=== PATIENT | male | born 1960 ===

== ENCOUNTER 2016-05-17 10:44 | Day surgery (SDC) | payer MEDICAID ==
[2016-04-22 13:35] VITALS: BMI 27.8
[2016-05-17] MEDS ORDERED: Propofol 10 mg/ml Inj (20 ML) ONE (11:49)
[2016-05-17] MEDS ORDERED: Midazolam 2 MG/2 ML VIAL ONE (11:49)
[2016-05-17] MEDS ORDERED: Succinylcholine 200 mg/10 ml Inj IV ONE (11:51)
[2016-05-17] MEDS ORDERED: Lactated Ringer's 1,000 ML IV ONE (12:00)
[2016-05-17] MEDS ORDERED: ePHEDrine 50 mg/ml Inj ONE (12:39)
--- NOTE | 2016-05-17 12:46 | CP.SDSHP ---
Same Day Surgery H & P - History Proposed Procedure: Open right inguinal hernia repair Pre-Op Diagnosis: Right inguinal hernia - Previous Medical/Surgical History Cardiac: Hypertension Pulmonary: Asthma Endocrine/Metabolic: Diabetes (prediabetes) Misc: Other (back pain, arthritis) Previous Surgical History: hemorrhoidectomy - Allergies Allergies: Allergies No Known Allergies Allergy (Verified 01/30/16 15:13) - Physical Exam Vital Signs: Vital Signs 05/17/16 05/17/16 11:04 11:10 Temperature 97.9 F Pulse Rate 58 L 88 Respiratory 18 Rate Blood Pressure 112/59 L O2 Sat by Pulse 96 Oximetry Mental Status: Alert & Oriented x3 Neuro: WNL Heart: WNL Lungs: WNL GI: WNL - {Optional Preform as Required} Abdomen: WNL - Impression Impression: Initial Right inguinal hernia Pt. Evaluated Today:Candidate for Anesthesia & Procedure: Yes - Date & Time Date: 05/17/16 Time: 12:45 Short Stay Discharge - Short Stay Discharge Admitting Diagnosis/Reason for Visit: RT INGUINAL HERNIA Referrals: Ishmael Alex MD [Primary Care Provider] - Elio Mendieta MD [Staff Provider] - Follow-up: Follow up with Dr. Mendieta in the clinic in 1 week Instructions: Inguinal Hernia (DC), Open Herniorrhaphy (DC) Additional Instructions (Diet, Activity): Avoid heavy lifting for 4 weeks You may remove top dressings 48 hours after your surgery but leave white steri strips in place, they will fall off on their own You may shower 48 hours after surgery, do not take a bath or swim You may resume regular diet You may take prescribed pain medication as needed for pain Follow up with Dr. Mendieta in the clinic in 1 week, call to make appointment
[2016-05-17] MEDS ORDERED: Sevoflurane - Inhalation Anesthetic Liq (250 ml) ONE (13:54)
--- NOTE | 2016-05-17 14:17 | PCM.SURG1 ---
Surgeon's Initial Post Op Note - Surgeon's Notes Surgeon: Dr. Mendieta Pilot Boat Deckhand: Dr. Silva PGY-2, Dr. Jones PGY-1, Dr. Mena DPM Type of Anesthesia: General Endo Pre-Operative Diagnosis: Right inguinal hernia Operative Findings: Right direct inguinal hernia Post-Operative Diagnosis: Right inguinal hernia Operation Performed: Open Right inguinal hernia repair with mesh Specimen/Specimens Removed: none Estimated Blood Loss: EBL {In ML}: 10 Blood Products Given: N/A Drains Used: No Drains Post-Op Condition: Good Date of Surgery/Procedure: 05/17/16 Time of Surgery/Procedure: 14:17
[2016-05-17] MEDS ORDERED: Albuterol 0.083% Inhal Sol (2.5 mg/3 mL) UD INH ONE (14:19)
[2016-05-17] MEDS ORDERED: DiphenhydrAMINE 50 mg/ml Inj IVP PRN (14:19)
[2016-05-17] MEDS ORDERED: HYDROmorphone 0.5 mg/0.5 ml ISec IVP PRN (14:22)
[2016-05-17] MEDS ORDERED: Oxycodone/Acetaminophen 5/325 mg Tab PO PRN (14:23)
[2016-05-17] MEDS: HYDROmorphone 0.5 mg/0.5 ml ISec IVP PRN ×4 (14:45→15:15)
[2016-05-17] MEDS ORDERED: HYDROmorphone 0.5 mg/0.5 ml ISec ONE (15:21)
[2016-05-17] MEDS ORDERED: HYDROmorphone 0.5 mg/0.5 ml ISec IVP ONE (15:30)
[2016-05-17] MEDS ORDERED: Oxycodone/Acetaminophen 5/325 mg Tab PO ONE ×2 (16:15)
[2016-05-17 16:21] VITALS: RESP 18; O2SAT 96
[2016-05-17 17:40] VITALS: BP 109/60; PULSE 72; TEMP 98
--- NOTE | 2016-05-18 14:31 | OP ---
PROCEDURE DATE: 05/17/2016 SURGEON: Dr. Mendieta. TIRE SHOP MANAGER: Dr. Silva and Dr. Jones. ANESTHESIA: General, DrMaryanne ____ . PREOPERATIVE DIAGNOSIS: Right inguinal hernia. POSTOPERATIVE DIAGNOSIS: Direct right inguinal hernia. PROCEDURE: Right inguinal hernia repair with mesh. DESCRIPTION OF OPERATION: With the patient in the supine position under adequate general anesthesia, the right groin was prepped and draped in the usual sterile manner. A transverse incision was made in the right upper groin crease and taken down through the subcutaneous tissue and the external obliq ue fascia was exposed. The external oblique fascia was incised and opened parallel to its fibers fro m the internal inguinal ring to the external inguinal ring. The spermatic cord was identified and di ssected at the level of the pubic tubercle and elevated on a [place] drain. The spermatic cord itsel f was relatively narrow; however, a large fatty protrusion was noted beneath the spermatic cord herni ating through the inguinal floor. The shelving edge of the inguinal ligament and the transversalis f ascia were developed with a minimal release of the oblique and a suture was placed at the pubic tuber amarjit. A size extra large ProLoop plug was then placed into the defect after the herniated material duckworth d been completely freed up and reduced and imbricating sutures of 2-0 Prolene were used to position t he plug well beneath the transversalis fascia and beneath the inguinal ligament as well. The flat po rtion of the ProLoop mesh system was then trimmed to approximate the inguinal floor and positioned be neath the spermatic cord and sutured superiorly to the transversalis fascia superiorly and the inguin al ligament inferiorly using the previously placed sutures as well as additional 2-0 Prolene interrup tonia sutures with sutures being placed to approximate the tails lateral to the internal ring. The ext ernal oblique was then closed with running suture of 0 Vicryl. Subcutaneous tissues approximated wit h 3-0 Vicryl interrupted sutures and closure performed with running subcuticular suture of 4-0 Monocr yl and Steri-Strips. Dry sterile dressing was applied. The patient tolerated the procedure well and transferred to recovery room in stable condition. Estimated blood loss for the procedure was 10 mL. Elio Mendieta MD cc: [id number] TT: 05/18/2016 14:30:19 jn
== END 2016-05-17 17:40 | disposition home or self-care (01) ==
LOC: H.OPSURG 10:44
PROVIDERS: ATTEND Specialist
DX: K40.90 Unilateral inguinal hernia, without obstruction or gangrene, not specified as recurrent (principal); I10 Essential (primary) hypertension; J45.909 Unspecified asthma, uncomplicated; E11.9 Type 2 diabetes mellitus without complications

== ENCOUNTER 2016-05-30 10:19 | Day surgery (SDC) | payer MEDICAID ==
[2016-05-30] MEDS ORDERED: Bupivacaine HCl 0.25% PF (10 ml) Inj ONE (11:15)
[2016-05-30] MEDS ORDERED: methylPREDNISolone Depo 80 mg/ml Inj ONE (11:15)
[2016-05-30] MEDS ORDERED: Lidocaine 1% Inj (20ml) ONE (11:15)
[2016-05-30] MEDS ORDERED: Iohexol 300 100 ML IJ ONE (11:15)
[2016-05-30 11:16] VITALS: BMI 27.1
[2016-05-30] MEDS ORDERED: Iohexol 300 10 ML ONE (11:17)
[2016-05-30] MEDS ORDERED: Sodium Chloride 0.9% 100 ML IV ONE (11:37)
[2016-05-30] MEDS ORDERED: Sodium Chloride 0.9% 200 ML IV ONE (11:37)
[2016-05-30] MEDS ORDERED: Lactated Ringer's 1,000 ML IV ONE (11:37)
--- NOTE | 2016-05-30 14:07 | OP ---
PROCEDURE DATE: 05/30/2016 PREOPERATIVE DIAGNOSIS: Cervical facet arthropathy. POSTOPERATIVE DIAGNOSIS: Cervical facet arthropathy. PROCEDURE: Bilateral C3, C4, and C5 medial branch nerve block. ANESTHESIOLOGIST: Dr. Miles. SURGEON: Dr. Seay. ANESTHESIA TYPE: Monitored anesthesia care. COMPLICATIONS: None. SPECIMEN: None. PROCEDURE: After re-discussion of the procedure with the patient including its risks, benefits, alte rnatives, outcome data, possibility of no effect or increased pain, the patient consented to the proc edure. He denies any recent infections, bleeding tendencies, or being on anticoagulants. Decision w as then made to proceed to the OR. The patient was placed on the fluoroscopy table in a prone position with 2 pillows underneath his abd omen. The chest and head were placed in a cervical positioner. The neck was prepped and draped in a usual sterile fashion and sterile technique was adhered to during the entire procedure. The C3, C4, and C5 vertebral levels were first identified in the anterior-posterior view. The medial branch ner ves are located at the lateral border of the corresponding vertebral levels. The procedure was first performed on the right side. The skin overlying the midpoint position of the lateral facet border o f the 3 corresponding vertebral levels was first infiltrated with 1% lidocaine using a 25 gauge needl e. Subsequently, a 22 gauge 3-1/2 inch spinal needle was then incrementally advanced under fluorosco pic guidance until tip of the needle made bony contact with all 3 target areas. The needle was then walked slightly laterally and anteriorly. After satisfactory positioning of all 3 needles, approxima tely 0.5 mL of Isovue contrast was injected to rule out intravenous spread. After doing so, approxim ately 2 mL of 0.25% Marcaine and Depo-Medrol mixture was injected into each needle. The needle was r emoved and the same exact procedure was performed on the contralateral left side using the same medic ations and technique at the corresponding levels. At the end of the case, the patient's neck was amarjit aned and dried and Band-Aids were applied. The patient was then transferred to the recovery area in good condition without any signs of [place]MIST STERO[place] or any neurological deficits. He will have a followup in office in approximately 2-4 weeks. En-Alexander Seay MD cc: [id number] TT: 05/30/2016 14:06:29 mn
[2016-05-30 16:15] VITALS: RESP 18
[2016-05-30 16:18] VITALS: O2SAT 97
[2016-05-30 16:45] VITALS: BP 120/71; PULSE 79; TEMP 99
--- NOTE | 2016-06-01 15:45 | RAD ---
Fluoroscopy dated 11/21/2016. History: Epidural. Single frontal view of the cervical spine performed. Study demonstrates 3 spinal needles at contiguous levels, side of which is uncertain due to the lack of right left markers. The there is contrast extravasation along the lateral margins overlying lateral margins of the upper cervical segments bilaterally. Approximately 36 seconds of fluoroscopy time utilized during this procedure. Please refer to operative report for additional details. Impression: Fluoroscopic guided pain management procedure.
== END 2016-05-30 17:30 | disposition home or self-care (01) ==
LOC: H.OPSURG 10:19
PROVIDERS: ATTEND Anesthesiology
DX: M46.82 Other specified inflammatory spondylopathies, cervical region (principal)

== ENCOUNTER 2016-07-16 10:33 | Emergency (ER) | payer MEDICAID ==
[2016-07-16 10:33] VITALS: BMI 27.1
[2016-07-16 10:48] VITALS: BP 139/92; PULSE 71; RESP 20; TEMP 97; O2SAT 97
--- NOTE | 2016-07-16 12:03 | ED PDOC ---
HPI: Abdomen Time Seen by Provider: 07/16/16 11:29 Chief Complaint (Nursing): Abdominal Pain Chief Complaint (Provider): Abdominal Pain History Per: Patient Additional Complaint(s): Jose Thao is a 56 year old male, with a previous medical history of diverticulitis, inguinal hernia, asthma and hypertension, who presents to the ED for eval of abnormal labs. Pt c/o mild abdominal cramping, LUQ to epigastric x 2-3 days. No fever or chills, no nausea, vomiting or diarrhea. Past Medical History Reviewed: Nursing Documentation, Vital Signs Vital Signs: Last Vital Signs Temp 97 F L 07/16/16 10:44 Pulse 71 07/16/16 10:44 Resp 20 07/16/16 10:44 BP 139/92 H 07/16/16 10:44 Pulse Ox 97 07/16/16 14:10 - Medical History PMH: Anxiety, Arthritis (osteoarthritis), Asthma, Back Problems, Benign Prostatic Hyperplasia, COPD, Diverticulitis, Hiatal Hernia, HTN, Hypercholesterolemia, Chronic Pain (Chronic back pain due to spinal stenosis) Denies: CHF, HIV, Chronic Kidney Disease - Surgical History Surgical History: - Family History Family History: States: [place], CAD, Diabetes, Hypertension - Social History Current smoker - smoking cessation education provided: No Alcohol: None Drugs: Denies - Home Medications Home Medications: Ambulatory Orders Medication Instructions Recorded Hydrochlorothiazide [HCTZ] 25 mg PO DAILY 03/15/15 Metoprolol Tartrate 25 mg PO BID 03/15/15 Morphine [MS Contin] 30 mg PO TID 03/15/15 Fluticasone/Salmeterol 500/50 1 actuation INH BID 09/10/15 [Advair Diskus 500/50] Lisinopril [Zestril] 40 mg PO DAILY 11/09/15 Acetaminophen/Oxycodone Hydr 10 - 325 mg PO Q6 PRN 12/21/15 [Percocet 10/325 mg Tab] Gabapentin [Neurontin] 800 mg PO TID 05/17/16 Dicyclomine [Bentyl] 10 mg PO QID #10 cap 07/16/16 - Allergies Allergies/Adverse Reactions: Allergies Allergy/AdvReac Type Severity Reaction Status Date / Time No Known Allergies Allergy Verified 07/16/16 10:44 Review of Systems ROS Statement: Except As Marked, All Systems Reviewed And Found Negative Gastrointestinal: Positive for: Abdominal Pain Physical Exam - Reviewed Nursing Documentation Reviewed: Yes Vital Signs Reviewed: Yes - Physical Exam Appears: Positive for: Well, Non-toxic, No Acute Distress Head Exam: Positive for: ATRAUMATIC, NORMAL INSPECTION, NORMOCEPHALIC Skin: Positive for: Normal Color, Warm, DRY Eye Exam: Positive for: EOMI, Normal appearance, PERRL ENT: Positive for: Normal ENT Inspection Neck: Positive for: Normal, Painless ROM Cardiovascular/Chest: Positive for: Regular Rate, Rhythm Respiratory: Positive for: CNT, Normal Breath Sounds Gastrointestinal/Abdominal: Positive for: Normal Exam, Bowel Sounds, Soft. Negative for: Tenderness, Mass, Distended, Guarding Back: Positive for: Normal Inspection Extremity: Positive for: Normal ROM Neurologic/Psych: Positive for: Alert, Oriented - Laboratory Results Result Diagrams: 07/16/16 12:55 07/16/16 12:55 - ECG O2 Sat by Pulse Oximetry: 97 Medical Decision Making Medical Decision Making: IV access established and treatment initiated with Toradol and Zofran Labs resulted and reviewed with POt who demonstrated full understanding XR IMPRESSION: No active disease. No acute/significant interval changes. US IMPRESSION: 1.9 cm right lower pole renal cyst. Echogenic liver may be seen in setting of hepatic parenchymal disease or fatty infiltration. Pt without any complaints on re-eval. Abdomen remains soft, non tender and non distended Advised to return to ED if at anytime condition worsens. Disposition - Clinical Impression Clinical Impression: Abdominal discomfort - Patient ED Disposition Is Patient to be Admitted: No - Disposition Disposition: Routine/Home Disposition Time: 15:19 Condition: STABLE Prescriptions: Dicyclomine [Bentyl] 10 mg PO QID #10 cap Instructions: Abdominal Pain (ED) - POA Present On Arrival: None
[2016-07-16 12:19] LABS: RBC URINE < 1 /hpf (0-3); URINE BILIRUBIN NEGATIVE (NEGATIVE); URINE BLOOD NEGATIVE (NEGATIVE); URINE COLOR STRAW (YELLOW); URINE GLUCOSE (UA) NEG (Normal); URINE KETONE NEGATIVE (NEGATIVE); URINE LEUKOCYTE ESTERASE NEG Leu/uL (Negative); URINE PROTEIN NEGATIVE (NEGATIVE); URINE UROBILINOGEN 0.2-1.0 mg/dL (0.2-1.0)
[2016-07-16 13:16] LABS: BASO % 0.5 % (0.0-2.0); EOS # 0.1 K/uL (0.0-0.7); EOS % 1.7 % (0.0-4.0); HEMATOCRIT 44.6 % (35.0-51.0); MEAN CELL VOLUME 81.1 fl (80.0-94.0); MEAN CORPUSCULAR HEMOGLOBIN 27.3 pg (27.0-31.0); MEAN CORPUSCULAR HGB CONC 33.6 g/dL (33.0-37.0); MEAN PLATELET VOLUME 11.1 fl (7.2-11.7); MONO # 0.5 K/uL (0.0-0.8); MONO % 6.9 % (0.0-10.0); NEUT # 5.7 K/uL (1.8-7.0); NEUT % 77.9 % (50.0-75.0); RED CELL DISTRIBUTION WIDTH 13.8 % (11.5-14.5); WHITE BLOOD COUNT 7.4 K/uL (4.8-10.8)
--- NOTE | 2016-07-16 13:21 | US ---
HISTORY: ruq and epigastric pain COMPARISON: CT abdomen and pelvis with contrast performed 04/22/16 TECHNIQUE: Sonographic evaluation of the abdomen. FINDINGS: LIVER: Measures 15.3 cm in sagittal dimension. Echogenic liver may be seen in setting of hepatic parenchymal disease or fatty infiltration. No focal hepatic mass identified. The main portal vein appears patent with normal directional flow. No intrahepatic bile duct dilatation. GALLBLADDER: No gallstones. No gallbladder wall thickening. Negative sonographic Sosa's sign as assessed by the fence erector. COMMON BILE DUCT: Measures 3 mm. PANCREAS: Not well visualized. RIGHT KIDNEY: Measures 11.7 x 7.0 x 6.1 cm. No obstructing calculus or hydronephrosis identified. 1.2 x 1.9 x 0.9 cm right lower pole avascular hypoechoic lesion consistent with a cyst. LEFT KIDNEY: Measures 11.5 x 6.5 x 6.0 cm. No obstructing calculus or hydronephrosis identified. SPLEEN: Measures approximately 10.4 cm. AORTA: Not well-visualized. IVC: Limited views appear grossly unremarkable. OTHER FINDINGS: None. IMPRESSION: 1.9 cm right lower pole renal cyst. Echogenic liver may be seen in setting of hepatic parenchymal disease or fatty infiltration.
[2016-07-16 13:26] LABS: ALB/GLOB RATIO 1.9 (1.0-2.1); ALKALINE PHOSPHATASE 60 U/L (38-126); ALT/SGPT 48 U/L (21-72); AMYLASE 113 U/L (30-110); AST/SGOT 37 U/L (17-59); BILIRUBIN,TOTAL 1.4 mg/dl (0.2-1.3); BLOOD UREA NITROGEN 15 mg/dl (9-20); CALCIUM 9.7 mg/dL (8.4-10.2); CARBON DIOXIDE 30 mmol/L (22-30); CHLORIDE 94 mmol/L (98-107); GFR AFRICAN-AMERICAN > 60; GLUCOSE,RANDOM 111 mg/dL (75-110); LIPASE 168 U/L (23-300); POTASSIUM 4.4 MMOL/L (3.6-5.0); SODIUM 136 mmol/l (132-148); TOTAL PROTEIN 7.8 G/DL (6.3-8.2)
--- NOTE | 2016-07-16 14:55 | RAD ---
PROCEDURE: CHEST RADIOGRAPH, 1 VIEW HISTORY: Abdominal pain. COMPARISON: July 16, 2016. Abdominal ultrasound FINDINGS: LUNGS: No active pulmonary disease. PLEURA: No pneumothorax or pleural fluid seen. CARDIOVASCULAR: No radiographic findings to suggest acute or significant cardiovascular disease. OSSEOUS STRUCTURES: No significant abnormalities. VISUALIZED UPPER ABDOMEN: Normal. OTHER FINDINGS: None. IMPRESSION: No active disease. No acute/significant interval changes.
== END 2016-07-16 14:17 | disposition home or self-care (01) ==
LOC: H.ER 10:33
DX: N28.1 Cyst of kidney, acquired (principal); K40.90 Unilateral inguinal hernia, without obstruction or gangrene, not specified as recurrent; E78.00 Pure hypercholesterolemia, unspecified; F41.9 Anxiety disorder, unspecified; I10 Essential (primary) hypertension; J44.9 Chronic obstructive pulmonary disease, unspecified; R10.13 Epigastric pain

== ENCOUNTER 2016-11-22 07:44 | Day surgery (SDC) | payer MEDICAID ==
[2016-10-05 12:21] VITALS: BMI 28.5
[2016-11-22] MEDS ORDERED: Lactated Ringer's 500 ML IV ONE (08:01)
[2016-11-22 08:09] VITALS: TEMP 97
[2016-11-22 10:17] VITALS: BP 114/70; PULSE 70; RESP 11; O2SAT 97
== END 2016-11-22 10:42 | disposition home or self-care (01) ==
LOC: H.ENDO 07:44
PROVIDERS: ATTEND Internal Medicine Gastroenterology
DX: K21.9 Gastro-esophageal reflux disease without esophagitis (principal); J45.909 Unspecified asthma, uncomplicated; E11.9 Type 2 diabetes mellitus without complications; I10 Essential (primary) hypertension; K29.70 Gastritis, unspecified, without bleeding; K44.9 Diaphragmatic hernia without obstruction or gangrene; R10.13 Epigastric pain
CPT/HCPCS: 43239; 88305; J7120

== ENCOUNTER 2017-01-12 18:17 | Emergency (ER) | payer MEDICAID ==
[2017-01-12 18:18] VITALS: BMI 28.5
[2017-01-12 18:30] VITALS: PULSE 78; RESP 20; TEMP 98; O2SAT 98
[2017-01-12 19:38] VITALS: BP 149/105
[2017-01-12 19:43] LABS: BASO # 0.1 K/uL (0.0-0.2); BASO % 1.1 % (0.0-2.0); EOS # 0.3 K/uL (0.0-0.7); EOS % 5.3 % (0.0-4.0); HEMOGLOBIN 14.5 g/dL (12.0-18.0); LYMPH # 1.3 K/uL (1.0-4.3); LYMPH % 26.4 % (20.0-40.0); MEAN CELL VOLUME 81.4 fl (80.0-94.0); MEAN CORPUSCULAR HEMOGLOBIN 27.3 pg (27.0-31.0); MEAN CORPUSCULAR HGB CONC 33.5 g/dL (33.0-37.0); MEAN PLATELET VOLUME 11.6 fl (7.2-11.7); MONO # 0.5 K/uL (0.0-0.8); MONO % 9.5 % (0.0-10.0); NEUT # 2.8 K/uL (1.8-7.0); NEUT % 57.7 % (50.0-75.0); NRBC % 0.1 % (0.0-0.0); RBC 5.31 Mil/uL (4.40-5.90); RED CELL DISTRIBUTION WIDTH 13.2 % (11.5-14.5); WHITE BLOOD COUNT 4.9 K/uL (4.8-10.8)
[2017-01-12 19:51] LABS: ALB/GLOB RATIO 1.8 (1.0-2.1); ALBUMIN 4.7 g/dL (3.5-5.0); ALT/SGPT 51 U/L (21-72); AST/SGOT 34 U/L (17-59); BLOOD UREA NITROGEN 19 mg/dl (9-20); CALCIUM 9.2 mg/dL (8.4-10.2); GFR AFRICAN-AMERICAN > 60; GFR NON-AFRICAN AMERICAN > 60
[2017-01-12 19:53] LABS: PARTIAL THROMBOPLASTIN TIME 30.1 Seconds (25.6-37.1); PROTHROMBIN TIME 10.7 Seconds (9.8-13.1)
[2017-01-12 20:21] LABS: BARBITURATES, UR NEGATIVE (NEGATIVE); BENZODIAZEPINES, UR NEGATIVE (NEGATIVE); OPIATES, UR POSITIVE (NEGATIVE); PHENCYCLIDINE, UR NEGATIVE (NEGATIVE)
--- NOTE | 2017-01-12 21:02 | CT ---
EXAM: CT Head Without Intravenous Contrast CLINICAL HISTORY: 56 years old, male; Pain; Headache; Other: Jordan's back of head; Patient HX: C-spine hnp. HTN; Additional info: Headache sudden onset TECHNIQUE: Axial computed tomography images of the head/brain without intravenous contrast. All CT scans at this facility use one or more dose reduction techniques, viz.: automated exposure control; ma/kV adjustment per patient size (including targeted exams where dose is matched to indication; i.e. head); or iterative reconstruction technique. Coronal and sagittal reformatted images were created and reviewed. COMPARISON: CT - HEAD W/O CONTRAST 2014-07-01 13:42 FINDINGS: Brain: No acute intracranial hemorrhage. No significant white matter disease. No edema. Ventricles: No significant ventriculomegaly. Bones: No acute displaced fracture. Sinuses: Unremarkable as visualized. No acute sinusitis. Mastoid air cells: Unremarkable as visualized. No mastoid effusion. IMPRESSION: No acute intracranial hemorrhage, or suspicious mass effect.
[2017-01-12] MEDS ORDERED: Alum-Mag Hydrox-Simethicone Susp (30 mL) PO STA (21:39)
--- NOTE | 2017-01-12 21:47 | ED PDOC ---
HPI: Headache Time Seen by Provider: 01/12/17 18:29 Chief Complaint (Nursing): Headache Chief Complaint (Provider): neck pain and headache Additional Complaint(s): sudden onset neck pain today when he turned his head to the left constant sharp shooting with some parasthesias to LEFT arm no weakness H/o cervical spine disease PMD [facility] Jo Past Medical History Reviewed: Historical Data, Nursing Documentation, Vital Signs Vital Signs: Last Vital Signs Temp 98 F 01/12/17 18:19 Pulse 78 01/12/17 18:19 Resp 20 01/12/17 18:19 BP 149/105 H 01/12/17 19:37 Pulse Ox 98 01/12/17 18:19 - Medical History PMH: Anxiety, Arthritis (osteoarthritis), Asthma, Back Problems, Benign Prostatic Hyperplasia, COPD, Diverticulitis, Hiatal Hernia, HTN, Hypercholesterolemia, Chronic Pain (Chronic back pain due to spinal stenosis) Denies: CHF, HIV, Chronic Kidney Disease - Surgical History Surgical History: Endoscopy - Family History Family History: States: [place], CAD, Diabetes, Hypertension - Immunization History Hx Tetanus Toxoid Vaccination: No Hx Influenza Vaccination: No Hx Pneumococcal Vaccination: No - Home Medications Home Medications: Ambulatory Orders Medication Instructions Recorded Metoprolol Tartrate 25 mg PO BID 03/15/15 Lisinopril [Zestril] 40 mg PO DAILY 11/09/15 Cyclobenzaprine [Cyclobenzaprine 10 mg PO TID #15 tab 01/12/17 HCl] Lidocaine 5% [Lidoderm] 1 ea TD DAILY PRN #20 patch 01/12/17 Naproxen [Naprosyn] 1 tab PO BID PRN #30 tab 01/12/17 - Allergies Allergies/Adverse Reactions: Allergies Allergy/AdvReac Type Severity Reaction Status Date / Time No Known Allergies Allergy Verified 01/12/17 18:19 Review of Systems ROS Statement: Except As Marked, All Systems Reviewed And Found Negative (and as per HPI) Cardiovascular: Negative for: Chest Pain, Light Headedness Musculoskeletal: Positive for: Neck Pain Neurological: Positive for: Numbness, Headache. Negative for: Weakness, Dizziness Physical Exam - Reviewed Nursing Documentation Reviewed: Yes Vital Signs Reviewed: Yes - Physical Exam Appears: Positive for: Non-toxic, In Acute Distress Head Exam: Positive for: ATRAUMATIC, NORMOCEPHALIC Skin: Positive for: Warm, Dry Eye Exam: Positive for: EOMI, PERRL ENT: Negative for: Pharyngeal Erythema, Tonsillar Exudate Neck: Positive for: Supple, Pain On Movement Of Neck (ttp LEFT paraspinal area) Cardiovascular/Chest: Positive for: Regular Rate, Rhythm, Chest Non Tender. Negative for: Murmur Respiratory: Positive for: Normal Breath Sounds. Negative for: Wheezing Gastrointestinal/Abdominal: Positive for: Soft. Negative for: Tenderness Back: Positive for: Normal Inspection Extremity: Positive for: Normal ROM. Negative for: Deformity Lymphatic: Negative for: Adenopathy Neurologic/Psych: Positive for: Alert. Negative for: Motor/Sensory Deficits - Laboratory Results Result Diagrams: 01/12/17 19:29 01/12/17 19:29 - ECG O2 Sat by Pulse Oximetry: 98 Pulse Ox Interpretation: Normal - Progress ED Course And Treament: EXAM: CT Head Without Intravenous Contrast CLINICAL HISTORY: 56 years old, male; Pain; Headache; Other: Jordan's back of head; Patient HX: C- spine hnp. HTN; Additional info: Headache sudden onset TECHNIQUE: Axial computed tomography images of the head/brain without intravenous contrast. All CT scans at this facility use one or more dose reduction techniques, viz.: automated exposure control; ma/kV adjustment per patient size (including targeted exams where dose is matched to indication; i.e. head); or iterative reconstruction technique. Coronal and sagittal reformatted images were created and reviewed. COMPARISON: CT - HEAD W/O CONTRAST 2014-07-01 13:42 FINDINGS: Brain: No acute intracranial hemorrhage. No significant white matter disease. No edema. Ventricles: No significant ventriculomegaly. Bones: No acute displaced fracture. Sinuses: Unremarkable as visualized. No acute sinusitis. Mastoid air cells: Unremarkable as visualized. No mastoid effusion. IMPRESSION: No acute intracranial hemorrhage, or suspicious mass effect. Thank you for allowing us to participate in the care of your patient. Dictated and Authenticated by: Renate Wells MD 01/12/2017 9:01 PM Eastern Time ([place] & [place]) EXAM: CT Cervical Spine Without Intravenous Contrast CLINICAL HISTORY: 56 years old, male; Pain; Other: Neck pain lt >rt; Patient HX: Cervical hnp. Jordan' s /neck pain. HTN; Additional info: Sudden onset neck and headache TECHNIQUE: Axial computed tomography images of the cervical spine without intravenous contrast. All CT scans at this facility use one or more dose reduction techniques, viz.: automated exposure control; ma/kV adjustment per patient size (including targeted exams where dose is matched to indication; i.e. head); or iterative reconstruction technique. Coronal and sagittal reformatted images were created and reviewed. COMPARISON: CT - CERVICAL SPINE W/O CONTRAST 2014-07-01 13:46 FINDINGS: Vertebrae: Loss of vertebral body height, presumed degenerative No acute fracture. Discs/spinal canal/neural foramina: No acute findings. Mild central canal stenosis at C5-C6. Severe left foraminal stenosis at C3-C4 and bilaterally at C4-C5. Findings are grossly stable Soft tissues: Unremarkable. Lung apices: Unremarkable as visualized. IMPRESSION: Grossly stable degenerative changes as described No definite disc herniation detected Thank you for allowing us to participate in the care of your patient. Dictated and Authenticated by: Alex Fairchild MD 01/12/2017 8:43 PM Eastern Time ([place] & [place]) Disposition - Clinical Impression Clinical Impression: Cervical radiculopathy, Herniated cervical disc Counseled Patient/Family Regarding: Studies Performed, Diagnosis, Need For Followup, Rx Given - Disposition Referrals: Shakira Seay MD [Staff Provider] - 01/14/17 Disposition: Routine/Home Disposition Time: 22:05 Condition: STABLE Prescriptions: Cyclobenzaprine [Cyclobenzaprine HCl] 10 mg PO TID #15 tab Lidocaine 5% [Lidoderm] 1 ea TD DAILY PRN #20 patch PRN Reason: PAIN Naproxen [Naprosyn] 1 tab PO BID PRN #30 tab PRN Reason: Pain Instructions: Cervical Strain (DC), Degenerative Disc Disease (ED)
[2017-01-12] MEDS ORDERED: Alum-Mag Hydrox-Simethicone Susp (30 mL) ONE (21:49)
--- NOTE | 2017-01-13 11:59 | CT ---
PROCEDURE: CT cervical spine dated 01/12/2017 HISTORY: Sudden onset neck and headache. COMPARISON: None available. TECHNIQUE: Axial computed tomography images were obtained of the cervical spine without the use of intravenous contrast. Coronal and sagittal reformatted images were created and reviewed. Radiation dose: Total exam DLP = 696.38 mGy-cm. This CT exam was performed using one or more of the following dose reduction techniques: Automated exposure control, adjustment of the mA and/or kV according to patient size, and/or use of iterative reconstruction technique. FINDINGS: VERTEBRAE: No acute compression fractures no retropulsed fragments. Vertebral bodies exhibit normal stature of. Vertebral bodies and facets normally aligned. . DISCS/SPINAL CANAL/NEURAL FORAMINA: Minor multilevel degenerative spondylosis. At the C2-C3 level, there is relatively disc bulge complex flattens the ventral surface of the thecal sac nearly reaching but not compressing the ventral surface of the cord. Central canal appears adequate. Facets are slightly overgrown as are the uncovertebral joints. Exit foramina appear marginal to adequate. At the C3-C4 level, there is adequate disc height. Small broad-based disc bulge ridge complex contiguous with hypertrophic uncovertebral joints. Facets also hypertrophic. There is mild flattening the ventral surface of the thecal sac. Central canal is slightly narrowed with no significant cord compression. Exit foramina are stenotic bilaterally. At the C4-C5 level, there is minor posterior disc space narrowing. Small central and bilateral disc bulge indents the ventral surface of the thecal sac nearly reaching but not significantly compressing the ventral surface cord. Some canal appears adequate. The facets are mild to moderately hypertrophic. Minimal degenerative squaring of the uncovertebral joints. Exit foramina are stenotic bilaterally. At the C5-C6 level, date there is also minor posterior disc space narrowing. Small central and bilateral disc bulge flattens the ventral surface of the thecal sac and spinal cord. Central canal is marginal to minimally narrowed. Facets are hypertrophic right greater than left. Exit foramina appear narrowed right greater than left. At the C6-C7 level, there is adequate disc height. Small central and bilateral disc bulge slightly larger on the right than left is also felt to be present however note that due to crossing streak and beam hardening artifact arising from dense clavicles and shoulder girdles, some central canal is poorly seen. There may be some minor compressive effects on the ventral surface of the spinal cord centrally and to the right more so than left. Exit foramina appear marginal to slightly narrowed on the right and marginal to adequate on the left. PARASPINAL SOFT TISSUES: Prevertebral and posterior paraspinal soft tissues unremarkable OTHER FINDINGS: Lung apices are clear without consolidation, effusion or pneumothorax. IMPRESSION: No acute fractures. Mild multilevel degenerative spondylosis as above.
== END 2017-01-12 22:15 | disposition home or self-care (01) ==
LOC: H.ER 18:17
DX: M47.22 Other spondylosis with radiculopathy, cervical region (principal); I10 Essential (primary) hypertension; J44.9 Chronic obstructive pulmonary disease, unspecified; Z82.49 Family history of ischemic heart disease and other diseases of the circulatory system; G89.29 Other chronic pain; N40.0 Benign prostatic hyperplasia without lower urinary tract symptoms; M50.90 Cervical disc disorder, unspecified, unspecified cervical region

== ENCOUNTER 2017-01-13 13:53 | Emergency (ER) | payer MEDICAID ==
[2017-01-13 13:53] VITALS: BMI 28.5
[2017-01-13 14:00] VITALS: BP 120/90; PULSE 98; RESP 18; TEMP 97.9; O2SAT 99
[2017-01-13] MEDS ORDERED: Sodium Chloride 0.9% 1,000 ML IV STA (14:16)
[2017-01-13 14:39] LABS: BASO % 0.7 % (0.0-2.0); EOS # 0.1 K/uL (0.0-0.7); EOS % 1.6 % (0.0-4.0); HEMATOCRIT 45.7 % (35.0-51.0); LYMPH # 0.9 K/uL (1.0-4.3); LYMPH % 16.8 % (20.0-40.0); MEAN CELL VOLUME 80.2 fl (80.0-94.0); MEAN CORPUSCULAR HEMOGLOBIN 27.4 pg (27.0-31.0); MEAN CORPUSCULAR HGB CONC 34.1 g/dL (33.0-37.0); MEAN PLATELET VOLUME 11.2 fl (7.2-11.7); MONO # 0.4 K/uL (0.0-0.8); MONO % 7.5 % (0.0-10.0); NEUT % 73.4 % (50.0-75.0); NRBC % 0.1 % (0.0-0.0); WHITE BLOOD COUNT 5.5 K/uL (4.8-10.8)
--- NOTE | 2017-01-13 14:41 | ED PDOC ---
HPI: General Adult Time Seen by Provider: 01/13/17 14:06 Chief Complaint (Nursing): GI Problem Chief Complaint (Provider): GI Problem History Per: Patient History/Exam Limitations: no limitations Current Symptoms Are (Timing): Still Present Additional Complaint(s): 56 y/o male presents to the ED complaining of dizziness and vomiting since this morning. Patient has 4 episodes of vomiting since morning. He states taking morphine and percocet this morning. Patient notes back pain, mild abdominal pain, diarrhea, constipation and gastritis.He was here last night for high blood pressure and pain in neck, head, shoulder, back and numbness in the jaw. Patient has an appointment for pain management tomorrow 01/14/17 with his PMD . Denies fever, hematemesis, hematuria, hematochezia or any further medical complaints. Past Medical History Reviewed: Historical Data, Nursing Documentation, Vital Signs Vital Signs: Last Vital Signs Temp 97.9 F 01/13/17 13:57 Pulse 98 H 01/13/17 13:57 Resp 18 01/13/17 13:57 BP 120/90 01/13/17 13:57 Pulse Ox 99 01/13/17 15:44 - Medical History PMH: Anxiety, Arthritis (osteoarthritis), Asthma, Back Problems, Benign Prostatic Hyperplasia, COPD, Diverticulitis, Hiatal Hernia, HTN, Hypercholesterolemia, Chronic Pain (Chronic back pain due to spinal stenosis) Denies: CHF, HIV, Chronic Kidney Disease - Surgical History Surgical History: Endoscopy - Family History Family History: States: [place], CAD, Diabetes, Hypertension - Social History Current smoker - smoking cessation education provided: No Alcohol: None Drugs: Denies - Immunization History Hx Tetanus Toxoid Vaccination: No Hx Influenza Vaccination: No Hx Pneumococcal Vaccination: No - Home Medications Home Medications: Ambulatory Orders Medication Instructions Recorded Metoprolol Tartrate 25 mg PO BID 03/15/15 Lisinopril [Zestril] 40 mg PO DAILY 11/09/15 Cyclobenzaprine [Cyclobenzaprine 10 mg PO TID #15 tab 01/12/17 HCl] Lidocaine 5% [Lidoderm] 1 ea TD DAILY PRN #20 patch 01/12/17 Naproxen [Naprosyn] 1 tab PO BID PRN #30 tab 01/12/17 Famotidine [Pepcid] 20 mg PO BID #16 tab 01/13/17 - Allergies Allergies/Adverse Reactions: Allergies Allergy/AdvReac Type Severity Reaction Status Date / Time No Known Allergies Allergy Verified 01/12/17 18:19 Review of Systems ROS Statement: Except As Marked, All Systems Reviewed And Found Negative (As per HPI, otherwise negative) Constitutional: Negative for: Fever Gastrointestinal: Positive for: Vomiting, Abdominal Pain (mild), Diarrhea, Constipation. Negative for: Hematochezia, Hematemesis Genitourinary Male: Negative for: Hematuria Musculoskeletal: Positive for: Back Pain Neurological: Positive for: Dizziness Physical Exam - Reviewed Nursing Documentation Reviewed: Yes Vital Signs Reviewed: Yes - Physical Exam Appears: Positive for: Well, Non-toxic, No Acute Distress Head Exam: Positive for: ATRAUMATIC, NORMAL INSPECTION, NORMOCEPHALIC Skin: Positive for: Normal Color, Warm, Dry Eye Exam: Positive for: EOMI, Normal appearance, PERRL Respiratory: Negative for: Accessory Muscle Use, Respiratory Distress Gastrointestinal/Abdominal: Positive for: Tenderness (mild tenderness to the left abdomen) Back: Negative for: L CVA Tenderness, R CVA Tenderness, Vertebral Tenderness Neurologic/Psych: Positive for: Alert, Oriented (x3) - Laboratory Results Result Diagrams: 01/13/17 14:28 01/13/17 14:28 - ECG O2 Sat by Pulse Oximetry: 99 (RA) Pulse Ox Interpretation: Normal Medical Decision Making Medical Decision Making: Time: 14:19 Initial Plan: --CMP --Lipase --CBC w/ diff --Pepcid 20mg PO --Sodium chloride 1L IV --Zofran 4mg IVP --Reevalaution Time: 15:15 --Labs normal-no WBC, no elevated LIPase normal PE pt will be d.c with improved symptoms and givne copy of labs results. advised to return to ER if worsened. Time: 15:41 Initial Plan: --Aluminum Hydroxide 30ml PO --Reevaluation Scribe Attestation: Documented by Manish Walters, acting as a scribe for Xochitl Felipe PA-C Provider Scribe Attestation: All medical record entries made by the Scribe were at my direction and personally dictated by me. I have reviewed the chart and agree that the record accurately reflects my personal performance of the history, physical exam, medical decision making, and the department course for this patient. I have also personally directed, reviewed, and agree with the discharge instructions and disposition. Disposition - Clinical Impression Clinical Impression: Nausea - Patient ED Disposition Is Patient to be Admitted: No - Disposition Referrals: [facility] [Outside] Disposition Time: 15:47 Condition: STABLE Prescriptions: Famotidine [Pepcid] 20 mg PO BID #16 tab Instructions: Abdominal Pain (ED) Forms: [employer] (Indonesian)
[2017-01-13 14:49] LABS: ALB/GLOB RATIO 1.9 (1.0-2.1); ALKALINE PHOSPHATASE 61 U/L (38-126); ALT/SGPT 55 U/L (21-72); AST/SGOT 32 U/L (17-59); BILIRUBIN,TOTAL 1.9 mg/dl (0.2-1.3); BLOOD UREA NITROGEN 15 mg/dl (9-20); CALCIUM 9.6 mg/dL (8.4-10.2); CARBON DIOXIDE 26 mmol/L (22-30); CHLORIDE 98 mmol/L (98-107); GFR AFRICAN-AMERICAN > 60; GLUCOSE,RANDOM 151 mg/dL (75-110); LIPASE 153 U/L (23-300); POTASSIUM 3.8 MMOL/L (3.6-5.0); SODIUM 139 mmol/l (132-148); TOTAL PROTEIN 7.9 G/DL (6.3-8.2)
[2017-01-13] MEDS ORDERED: Alum-Mag Hydrox-Simethicone Susp (30 mL) PO STA (15:41)
[2017-01-13] MEDS ORDERED: Alum-Mag Hydrox-Simethicone Susp (30 mL) ONE (15:45)
== END 2017-01-13 16:03 | disposition home or self-care (01) ==
LOC: H.ER 13:53
DX: R10.9 Unspecified abdominal pain (principal); R42 Dizziness and giddiness; R11.0 Nausea; E78.00 Pure hypercholesterolemia, unspecified; F41.9 Anxiety disorder, unspecified; G89.29 Other chronic pain; I10 Essential (primary) hypertension; J44.9 Chronic obstructive pulmonary disease, unspecified; N40.0 Benign prostatic hyperplasia without lower urinary tract symptoms
CPT/HCPCS: 80053; 83690; 85025; 96361; 96374; 96375; 99281; J1885; J2405; J7040

== ENCOUNTER 2017-01-16 06:37 | Day surgery (SDC) | payer MEDICAID ==
[2017-01-16 06:57] VITALS: BMI 29.5
[2017-01-16] MEDS ORDERED: Dexamethasone 4 mg/1 ml ONE (07:34)
[2017-01-16] MEDS ORDERED: Iohexol 300 10 ML ONE (07:35)
[2017-01-16] MEDS ORDERED: Midazolam 2 MG/2 ML VIAL ONE (08:51)
[2017-01-16] MEDS ORDERED: Dexamethasone 4 mg/1 ml IM ONE (08:51)
[2017-01-16] MEDS ORDERED: Iohexol 300 10 ML IJ ONE (08:51)
[2017-01-16] MEDS ORDERED: Lidocaine 1% Inj (20ml) IJ ONE (08:51)
[2017-01-16] MEDS: Lactated Ringer's 1,000 ML IV ONE (08:55)
[2017-01-16] MEDS ORDERED: HYDROmorphone 0.5 mg/0.5 ml ISec ONE (09:08)
[2017-01-16] MEDS ORDERED: HYDROmorphone 0.5 mg/0.5 ml ISec IVP PRN (09:09)
[2017-01-16 11:16] VITALS: RESP 18
[2017-01-16 12:16] VITALS: BP 132/76; PULSE 68; TEMP 98.5; O2SAT 97
--- NOTE | 2017-01-16 17:29 | RAD ---
PROCEDURE: Intraoperative Fluoroscopy. HISTORY: EPIDURAL FINDINGS: Fluoroscopic assistance was provided for cervical epidural. Total fluoroscopic time (continuous mode) utilized during the procedure: 11.3 seconds. Please refer to the operative report from
--- NOTE | 2017-01-17 16:37 | OP ---
PROCEDURE DATE: 01/16/2017 PREOPERATIVE DIAGNOSIS: Cervical radiculopathy. POSTOPERATIVE DIAGNOSIS: Cervical radiculopathy. PROCEDURE: Cervical epidural steroid injection. ANESTHESIA ADMINISTERED BY: Dr. Terrazas. SURGEON: Shakira Seay MD. TYPE OF ANESTHESIA: Monitored anesthesia care. COMPLICATIONS: None. SPECIMEN: None. DESCRIPTION OF PROCEDURE: After we had discussion of the procedure with the patient including its risks, benefits, alternatives, outcome data, possibility of no effect or increased pain, patient consented to the procedure. He denies any recent infection, bleeding tendencies, or being on anticoagulants, a decision was then made to proceed to the OR. Patient was placed on a fluoroscopy table in a prone position using a head positioner. The neck was prepped and draped in the usual sterile fashion and sterile technique was adhered to during the entire procedure. The C7-T1 interlaminar space was first identified in the anterior posterior view. The skin overlying this area was infiltrated with 1% lidocaine using 25-gauge needle. Subsequently, a 20-gauge 3.5 inch Tuohy needle was incrementally advanced under fluoroscopic guidance until epidural space was reached at approximately 7 cm depth. This was accomplished by using the loss of resistance technique. The needle advancement was also guided under lateral fluoroscopy view. After appropriate placement of the needle, the epidural space was confirmed by injecting approximately 1 mL of Isovue contrast, which demonstrated appropriate epidural and nerve root spread without any signs of CSF or intravenous involvement. At this point, approximately 5 mL of Decadron and normal saline mixture was gradually injected. At the end of the case, the needle was removed and patient's neck was cleaned and dried and bandages were applied. The patient was then transferred to the recovery area in good condition without any signs of [employer]CH[employer]ICIAN toxicity or any neurological deficit. He will have a followup in our office in approximately 2 to 4 weeks. Shakira Seay MD
== END 2017-01-16 12:20 | disposition home or self-care (01) ==
LOC: H.OPSURG 06:37
PROVIDERS: ATTEND Anesthesiology
DX: M54.12 Radiculopathy, cervical region (principal); J45.909 Unspecified asthma, uncomplicated; J44.9 Chronic obstructive pulmonary disease, unspecified; I10 Essential (primary) hypertension
CPT/HCPCS: 62321; J1100; J1170; J2250; J7120; Q9967

== ENCOUNTER 2017-02-13 09:57 | Day surgery (SDC) | payer MEDICAID ==
[2017-02-13 10:32] VITALS: BMI 29.2
[2017-02-13] MEDS ORDERED: Lactated Ringer's 1,000 ML IV ONE (11:05)
[2017-02-13] MEDS ORDERED: MethylPREDNISolone Depo 40 mg/ml Inj ONE (12:15)
[2017-02-13] MEDS ORDERED: Iohexol 300 10 ML ONE (12:16)
[2017-02-13] MEDS ORDERED: Lidocaine 1% Inj (20ml) ONE (12:16)
[2017-02-13] MEDS ORDERED: Bupivacaine HCl 0.25% PF (30 ml) Inj ONE (12:17)
[2017-02-13] MEDS ORDERED: Midazolam 2 MG/2 ML VIAL ONE ×2 (12:30→12:54)
[2017-02-13] MEDS ORDERED: Bupivacaine HCl 0.25% PF (30 ml) Inj IJ ONE (12:36)
[2017-02-13] MEDS ORDERED: Iohexol 240 (10 ml) IVP ONE (12:37)
[2017-02-13] MEDS ORDERED: Lidocaine 1% Inj (20ml) IJ ONE (12:38)
[2017-02-13] MEDS ORDERED: MethylPREDNISolone Depo 40 mg/ml Inj IM ONE (12:38)
[2017-02-13] MEDS ORDERED: Lactated Ringer's 1,000 ML IV SCH (13:30)
[2017-02-13 15:00] VITALS: BP 126/68; PULSE 62; RESP 18; TEMP 97.6; O2SAT 97
--- NOTE | 2017-02-13 18:57 | RAD ---
PROCEDURE: Cervical epidural injections HISTORY: PAIN MANAGEMENT COMPARISON: None TECHNIQUE: Standard protocol for this study/examination. FINDINGS: Total fluoroscopic time (continuous mode) utilized during the procedure: 56.8 seconds. Total exam DLP: (mGy): 14.52. IMPRESSION: Total fluoroscopic time (continuous mode) utilized during the procedure: 2.0
--- NOTE | 2017-02-14 00:13 | OP ---
PROCEDURE DATE: 02/13/2017 PREOPERATIVE DIAGNOSIS: Cervical facet syndrome. POSTOPERATIVE DIAGNOSIS: Cervical facet syndrome. PROCEDURE: Bilateral C3, C4, and C5 medial branch nerve block. SURGEON: Shakira Seay MD TYPE OF ANESTHESIA: Monitored anesthesia care. ANESTHESIA ADMINISTERED BY: Ben Hyatt MD. COMPLICATIONS: None. SPECIMEN: None. DESCRIPTION OF PROCEDURE: Procedure is as follows, After we had discussion of the procedure with the patient, including its risks, benefits, alternatives, outcome data, possibility of no effect or increased pain, the patient consented to the procedure. He denies any recent infections, bleeding tendencies or being on anticoagulants. The decision was then made to proceed to the OR. The patient was placed on a fluoroscopy table in a prone position with two pillows underneath his chest. The head and neck was then placed in a head positioner. The neck was prepped and draped in the usual sterile fashion and a sterile technique was adhered to during the entire procedure. The C3, C4, and C5 vertebral levels were first identified in the anterior-posterior view. The medial branch nerves were located at the mid point of the facet border at the corresponding vertebrae. The procedure was first performed on the right by turning the fluoroscopy slightly towards the contralateral left oblique at approximately 5 degrees. The skin overlying the three above target areas was then infiltrated with 1% lidocaine using 25-gauge needle. Subsequently, a 22-gauge 3.5 inch spinal needle was then incrementally advanced under fluoroscopic guidance until tip of the needle made bony contact with all three target areas. The needle was then worked slightly laterally and anteriorly. After satisfactory positioning of all three needles, approximately 0.5 mL of Isovue contrast was injected to rule out intravenous uptake. At this point, approximately 2 mL of 0.25% Marcaine and Depo-Medrol mixture was injected. The needle was then removed and the same exact procedure was performed on the contralateral left side using the same medications and techniques. At the end of the case, patient's neck was cleaned and dried; bandages were applied. Patient was then transferred to the recovery area in good condition without any signs of JOURNEY[employer]EMAN toxicity or new neurological deficits. He will have a followup in the office in approximately 2 to 4 weeks. En-Alexander Seay MD
== END 2017-02-13 15:20 | disposition home or self-care (01) ==
LOC: H.OPSURG 09:57
PROVIDERS: ATTEND Anesthesiology
DX: M47.812 Spondylosis without myelopathy or radiculopathy, cervical region (principal); J44.9 Chronic obstructive pulmonary disease, unspecified; E78.5 Hyperlipidemia, unspecified; I10 Essential (primary) hypertension
CPT/HCPCS: 64520; J1030; J1170; J2250; J3010; J7120; Q9966; Q9967

== ENCOUNTER 2017-05-10 08:50 | Day surgery (SDC) | payer MEDICAID ==
[2017-05-10 09:54] VITALS: RESP 18
[2017-05-10] MEDS ORDERED: methylPREDNISolone Depo 80 mg/ml Inj ONE (10:12)
[2017-05-10] MEDS ORDERED: Lidocaine 1% Inj (20ml) ONE ×2 (10:13→10:31)
[2017-05-10] MEDS ORDERED: Iohexol 300 10 ML ONE (10:13)
[2017-05-10] MEDS ORDERED: Bupivacaine HCl 0.5% PF (10 ml) Inj ONE ×2 (10:14→10:20)
[2017-05-10] MEDS ORDERED: MethylPREDNISolone Depo 40 mg/ml Inj ONE (10:20)
[2017-05-10] MEDS ORDERED: Lactated Ringer's 1,000 ML IV ONE (10:44)
[2017-05-10 11:57] VITALS: O2SAT 98
[2017-05-10 12:21] VITALS: PULSE 62
[2017-05-10 12:22] VITALS: BP 118/77; TEMP 98.5
--- NOTE | 2017-05-10 14:45 | RAD ---
PROCEDURE: Intraoperative Fluoroscopy. HISTORY: PAIN MANAGEMENT FINDINGS: Fluoroscopic assistance was provided. 51.1 seconds fluoroscopy time utilized for this examination. Radiation dose = 8.37 mGy. Please refer to the operative report from [facility].
--- NOTE | 2017-05-10 19:25 | OP ---
PROCEDURE DATE: 05/10/2017 PREOPERATIVE DIAGNOSIS: Lumbar facet syndrome. POSTOPERATIVE DIAGNOSIS: Lumbar facet syndrome. PROCEDURE: Left L3, L4 and L5 medial branch nerve radiofrequency and right L3, L4 and L5 medial branch nerve block. SURGEON: Shakira Seay MD ANESTHESIOLOGIST: Dr. Terrazas. TYPE OF ANESTHESIA: Monitored anesthesia care. COMPLICATIONS: None. SPECIMEN: None. DESCRIPTION OF PROCEDURE: After we had discussion of the procedure with the patient including its risks, benefits, alternatives, outcome data, possibility of no effect or increased pain, the patient consented to the procedure. He denies any recent infection, bleeding tendencies or being on anticoagulants, a decision was then made to proceed to the OR. The patient was placed on a fluoroscopy table in a prone position with 2 pillows underneath his abdomen. The back was prepped and draped in a usual sterile fashion and a sterile technique was adhered during the entire procedure. The L3, L4 and L5 medial branch nerves are located at the intersection of the superior articular process and the transverse process of the L4 and L5 pedicle along with the sacral ala. The procedure was first performed on the left by turning the fluoroscopy towards the left at approximately 15 degrees. The skin overlying the three above target areas were then infiltrated with 1% lidocaine using 25-gauge needle. Subsequently, a 22-gauge 3.5-inch Stimuplex needle was then incrementally advanced under fluoroscopic guidance until the tip of needle made bony contact with all three target areas. After satisfactory positioning of all three needles, sensory and motor testing was carried out to satisfactory results. Then each nerve was anesthetized with 1% lidocaine. Radiofrequency was then carried out at 80 degrees Celsius for approximately one and a half minutes. At the end of the procedure, each nerve was treated with a combination of 0.5% Marcaine and Depo-Medrol. Then, the procedure was performed on the right side by turning the fluoroscopy towards the right at approximately 15 degrees. The same rohit was used and after appropriate placement of all three needles at the target areas, each nerve was treated with a combination of 0.5% Marcaine and Depo-Medrol. At the end of the case, the patient's back was cleaned and dried and bandages were applied. The patient was then transferred to recovery area in good condition without any signs of [employer] toxicity or any neurological deficit. He will be following in our office in approximately two to four weeks. Shakira Seay MD [facility] # [id number]
== END 2017-05-10 13:00 | disposition home or self-care (01) ==
LOC: H.OPSURG 08:50
PROVIDERS: ATTEND Anesthesiology
DX: M47.816 Spondylosis without myelopathy or radiculopathy, lumbar region (principal)
CPT/HCPCS: 64493; 64494; 64495; J1030; J1040; J7120; Q9967

== ENCOUNTER 2017-06-09 20:48 | Emergency (ER) | payer MEDICAID ==
[2017-06-09 20:52] VITALS: BMI 26.9
[2017-06-09 20:56] VITALS: BP 151/94; PULSE 62; RESP 18; TEMP 98.6; O2SAT 98
[2017-06-09] MEDS ORDERED: Iohexol 240 (50 ml) PO ONE (21:42)
[2017-06-09] MEDS ORDERED: Sodium Chloride 0.9% 1,000 ML IV STA (21:43)
[2017-06-09] MEDS ORDERED: Sodium Chloride 0.9% 500 ML IV STA (21:44)
--- NOTE | 2017-06-09 22:03 | ED PDOC ---
HPI: Abdomen Chief Complaint (Provider): abdominal pain History Per: Family History/Exam Limitations: no limitations Onset/Duration Of Symptoms: Days Current Symptoms Are (Timing): Still Present Context: Food Severity: Moderate Location Of Pain/Discomfort: RLQ, Epigastric, LLQ Quality Of Discomfort: "Pain" Associated Symptoms: Nausea, Diarrhea (loose stools). denies: Fever, Chills, Vomiting, Chest Pain, Constipation Exacerbating Factors: Food Last Bowel Movement: Today <Jerilyn Caldera - Last Filed: 06/10/17 03:09> <Andrea Castilloam Henry - Last Filed: 06/11/17 03:25> Time Seen by Provider: 06/09/17 21:10 Chief Complaint (Nursing): Abdominal Pain Additional Complaint(s): 57 yo M with PMH diverticulitis, cholelithiasis, hypertension, asthma, hyperlipidemia presented to ED with 1 weeks duration of epigastric pain and loose bowel movements after eating. States that pain is aching and starts within 15 min after a meal, after which he gets a "hot flash," described as being sweaty and hot on his neck/forehead, and then the need to have a bowel movement, which he describes as soft/loose/not formed, but not jerzy diarrhea ( had jerzy diarrhea one time). Denies blood in stool, vomiting, chest pain, shortness of breath, palpitations; admits to slight nausea. He came into ED today because he felt he was not getting any better. Of note, until 1 month ago he was taking protonix daily in am and pepcid nightly in pm; about 3 weeks ago he stopped taking protonix and has continued pepcid nightly. He has also seen general surgery about 1 mo ago- elected to not have cholesystectomy at that time and has been working on avoiding fatty/fried foods in his diet. PMD: TAMIKA, Dr. Salazar PMH: HTN, HLD, asthma, diverticulitis, cholelithiasis, chronic back/neck pain ( sees pain management) Past Surg hx: left sided abdominal hernia repair (9 y ago), hemorrhoidectomy ( 10 y ago) Social hx: denies tobacco use, denies current alcohol use (used to be a heavy drinker until 3-4 yrs ago), denies recent drug use (cocaine use 4 yrs ago) Fam hx: DM2, HTN, brother passed due to liver ca Allergies: NKDA Meds: metoprolol, lisinopril, hctz, lipitor, advair, albuterol, percocet, MS contin (Jerilyn Caldera) Supervising Attending Note - Supervising Attending Note The Documented history was done by the: Physician [employer] Freight Conductor The documented physical exam was done by the: Physician [employer] Freight Conductor - Attestation: I have personally seen and examined this patient.: Yes I have fully participated in the care of the patient.: Yes I have reviewed all pertinent clinical information: Yes <Andrew Castillo - Last Filed: 06/11/17 03:25> Past Medical History - Medical History PMH: Anxiety, Arthritis, Asthma, Back Problems, Benign Prostatic Hyperplasia, COPD, Diverticulitis, Hiatal Hernia, HTN, Hypercholesterolemia, Chronic Pain ( Chronic back pain due to spinal stenosis) Denies: CHF, HIV, Chronic Kidney Disease - Surgical History Surgical History: Endoscopy, Hernia Repair - Family History Family History: States: [place], CAD, Diabetes, Hypertension - Social History Alcohol: None Drugs: Denies - Immunization History Hx Tetanus Toxoid Vaccination: No Hx Influenza Vaccination: No Hx Pneumococcal Vaccination: No <Jerilyn Caldera - Last Filed: 06/10/17 03:09> <Andrew Castillo - Last Filed: 06/11/17 03:25> Vital Signs: Last Vital Signs Temp 98.6 F 06/09/17 20:52 Pulse 62 06/09/17 20:52 Resp 18 06/09/17 20:52 BP 151/94 H 06/09/17 20:52 Pulse Ox 98 06/10/17 03:09 - Home Medications Home Medications: Ambulatory Orders Medication Instructions Recorded Metoprolol Tartrate 25 mg PO BID 03/15/15 Lisinopril [Zestril] 40 mg PO DAILY 11/09/15 Acetaminophen/Oxycodone Hydr 1 tab PO TID 01/16/17 [Percocet 10/325 mg Tab] Albuterol HFA [Ventolin HFA 90 2 puff IH BID PRN 01/16/17 mcg/actuation (8 g)] Atorvastatin [Lipitor] 40 mg PO DAILY 01/16/17 Cyclobenzaprine [Cyclobenzaprine 10 mg PO DAILY PRN 01/16/17 HCl] Fluticasone/Salmeterol 500/50 2 puff INH BID 01/16/17 [Advair Diskus 500/50] Gabapentin [Neurontin] 1,200 mg PO TID 01/16/17 Morphine Sulfate [Ms Contin] 30 mg PO BID 01/16/17 Pantoprazole Sodium [Protonix] 40 mg PO DAILY 05/10/17 hydroCHLOROthiazide [Hydrodiuril] 25 mg PO DAILY 05/10/17 - Allergies Allergies/Adverse Reactions: Allergies Allergy/AdvReac Type Severity Reaction Status Date / Time No Known Allergies Allergy Verified 06/09/17 20:52 Review of Systems Constitutional: Positive for: Sweats. Negative for: Fever, Chills Cardiovascular: Negative for: Chest Pain, Palpitations Respiratory: Negative for: Cough, Shortness of Breath Gastrointestinal: Positive for: Nausea, Abdominal Pain, Diarrhea. Negative for : Hematochezia, Hematemesis Genitourinary Male: Negative for: Dysuria Musculoskeletal: Positive for: Neck Pain (chronic), Back Pain (chronic) Neurological: Negative for: Weakness, Numbness <Jerilyn Caldera - Last Filed: 06/10/17 03:09> Physical Exam - Physical Exam Appears: Positive for: Non-toxic, No Acute Distress Skin: Positive for: Normal Color, Warm, Dry Eye Exam: Positive for: EOMI, PERRL. Negative for: Conjunctival injection, Scleral icterus ENT: Positive for: Normal ENT Inspection. Negative for: Pharyngeal Erythema, Tonsillar Swelling Neck: Positive for: Normal, Painless ROM, Supple Cardiovascular/Chest: Positive for: Regular Rate, Rhythm, Chest Non Tender. Negative for: Murmur Respiratory: Positive for: Normal Breath Sounds. Negative for: Accessory Muscle Use, Wheezing, Respiratory Distress Gastrointestinal/Abdominal: Positive for: Bowel Sounds (hyperactive), Soft, Tenderness (epigastric, RLQ, LLQ). Negative for: Distended, Rebound Back: Positive for: Normal Inspection. Negative for: L CVA Tenderness, R CVA Tenderness Extremity: Negative for: Tenderness, Deformity Neurologic/Psych: Positive for: Alert, Oriented <Jerilyn Caldera - Last Filed: 06/10/17 03:09> - Laboratory Results Result Diagrams: 06/09/17 22:40 06/09/17 22:40 - ECG O2 Sat by Pulse Oximetry: 98 <Jerilyn Caldera - Last Filed: 06/10/17 03:09> - Laboratory Results Result Diagrams: 06/09/17 22:40 06/09/17 22:40 <LaurenroberAndrew roman - Last Filed: 06/11/17 03:25> Medical Decision Making <Jerilyn Caldera - Last Filed: 06/10/17 03:09> <Andrew Castillo - Last Filed: 06/11/17 03:25> Medical Decision Making: Impression: gastritis, enteritis - CMP - CBC - Lipase - Protonix IVP - 500 ml NS IV bolus - Abd/Pelvis PO and IV contrast Re-eval Labs- remarkable for thrombocytopenia (chronic); CT scan read by [facility] - multiple nonemergent findings, including diffuse diverticulosis without diverticulitis; no acute cholecystitis. Pt states he feels better after protonix, but feels gassy; will order simethicone. Discussed with patient that he should resume his protonix prescription- pt states he has at home, does not need refills. Stable for discharge, will be set up with appointment with PMD. Discussed w/ Dr. Castillo. (Jerilyn Caldera) Disposition - Patient ED Disposition Is Patient to be Admitted: No - Disposition Disposition: Routine/Home Disposition Time: 03:00 <Jerilyn Caldera - Last Filed: 06/10/17 03:09> <Andrew Castillo - Last Filed: 06/11/17 03:25> - Clinical Impression Clinical Impression: Gastritis - Disposition [facility] [place] [[facility] Group] Condition: STABLE Additional Instructions: Please continue taking your medications as prescribed; resume taking protonix as previously prescribed. Avoid spicy, fatty, fried foods. You will be scheduled for an appointment with the [facility] at [address] [place] [address]; you should be be notified about this appointment within the next few days at your provided preferred phone number. If you are not notified within 2 days, please call [phone] for an appointment. Instructions: Gastritis, Gastritis (DC) Forms: [email or web address] (Indonesian)
[2017-06-09] MEDS ORDERED: Iohexol 240 (50 ml) ONE (22:10)
[2017-06-09 23:34] LABS: BASO % 0.4 % (0.0-2.0); EOS # 0.1 K/uL (0.0-0.7); EOS % 1.6 % (0.0-4.0); HEMOGLOBIN 14.6 g/dL (12.0-18.0); LYMPH # 0.9 K/uL (1.0-4.3); LYMPH % 14.1 % (20.0-40.0); MEAN CELL VOLUME 83.7 fl (80.0-94.0); MEAN CORPUSCULAR HEMOGLOBIN 27.9 pg (27.0-31.0); MEAN CORPUSCULAR HGB CONC 33.4 g/dL (33.0-37.0); MEAN PLATELET VOLUME 12.2 fl (7.2-11.7); MONO # 0.5 K/uL (0.0-0.8); MONO % 7.5 % (0.0-10.0); NEUT % 76.4 % (50.0-75.0); NRBC % 0.1 % (0.0-0.0); RBC 5.23 Mil/uL (4.40-5.90); RED CELL DISTRIBUTION WIDTH 13.7 % (11.5-14.5); WHITE BLOOD COUNT 6.6 K/uL (4.8-10.8)
[2017-06-09 23:41] LABS: ALB/GLOB RATIO 1.6 (1.0-2.1); ALBUMIN 4.4 g/dL (3.5-5.0); ALT/SGPT 52 U/L (21-72); AST/SGOT 30 U/L (17-59); BLOOD UREA NITROGEN 17 mg/dl (9-20); CALCIUM 9.5 mg/dL (8.4-10.2); GFR AFRICAN-AMERICAN > 60; GFR NON-AFRICAN AMERICAN > 60; LIPASE 302 U/L (23-300)
[2017-06-09] MEDS ORDERED: Iohexol 300 100 ML IJ ONE (23:54)
--- NOTE | 2017-06-10 01:40 | CT ---
EXAM: CT Abdomen and Pelvis With Intravenous Contrast EXAM DATE/TIME: 06/09/2017 9:42 PM CLINICAL HISTORY: 57 years old, male; Pain; Abdominal pain; Generalized; Prior surgery; Surgery date: 6+ months; Surgery type: Rt inguinal hernia repair TECHNIQUE: Axial computed tomography images of the abdomen and pelvis with intravenous contrast. All CT scans at this facility use one or more dose reduction techniques, viz.: automated exposure control; ma/kV adjustment per patient size (including targeted exams where dose is matched to indication; i.e. head); or iterative reconstruction technique. Coronal and sagittal reformatted images were created and reviewed. CONTRAST: 95 mL of [id number] administered intravenously. COMPARISON: Prior CT abdomen and pelvis of 2016-04-22 17:04 FINDINGS: LUNG BASES: No significant abnormality seen. MEDIASTINUM: Small hiatal hernia. ABDOMEN: LIVER: Fatty infiltration of the liver. GALLBLADDER AND BILE DUCTS: Tiny calcification in the gallbladder fundus, also seen on the prior study, most likely a gallstone versus a tiny gallbladder wall calcification. There is no evidence of diffuse gallbladder wall calcification. No CT evidence of acute cholecystitis. PANCREAS: No CT evidence of acute pancreatitis. SPLEEN: No acute abnormality of the spleen identified. ADRENALS: No acute abnormality of the adrenal glands identified. KIDNEYS AND URETERS: Low density lesions in the right kidney, most likely representing cysts. The largest measures 1.5 cm. No significant acute abnormality of the kidneys identified. No evidence of obstructing stones. STOMACH AND BOWEL: Extensive colonic diverticulosis, without evidence of acute diverticulitis. Otherwise, no significant abnormality of the bowel is identified. No acute abnormality of the stomach or duodenum identified. No evidence of small bowel obstruction. APPENDIX: Appendix is seen, and is within normal limits in appearance. PELVIS: BLADDER: No acute abnormality of the bladder identified. REPRODUCTIVE: Enlarged prostate gland, which indents the base of the bladder. ABDOMEN and PELVIS: INTRAPERITONEAL SPACE: Small, round, cystic mass measuring 2.6 x 2.2 cm is seen in the right anterior pelvis. This is located just above the right inguinal canal and is most likely a postsurgical lymphocele related to the prior right inguinal hernia repair. No associated air. No adjacent inflammation. BONES/JOINTS: No acute fractures or other acute bony abnormality noted. SOFT TISSUES: No evidence of abdominal wall hernia containing bowel. VASCULATURE: No evidence of abdominal aortic aneurysm. No evidence of periaortic hemorrhage. LYMPH NODES: No evidence of diffuse lymphadenopathy. IMPRESSION: - No evidence of significant acute process. No definite cause for pain identified. - See above for multiple non-emergent findings.
[2017-06-10] MEDS ORDERED: Simethicone 80 mg Chewtab PO ONE (02:37)
== END 2017-06-10 03:16 | disposition home or self-care (01) ==
LOC: H.ER 20:48
DX: K29.70 Gastritis, unspecified, without bleeding (principal); Z82.49 Family history of ischemic heart disease and other diseases of the circulatory system; N40.0 Benign prostatic hyperplasia without lower urinary tract symptoms; I10 Essential (primary) hypertension; J44.9 Chronic obstructive pulmonary disease, unspecified; G89.29 Other chronic pain
CPT/HCPCS: 74177; 80053; 83690; 85025; 96374; 99283; C9113; J7040; Q9966; Q9967

== ENCOUNTER 2017-07-10 13:14 | Emergency (ER) | payer MEDICAID ==
[2017-07-10 13:14] VITALS: BMI 26.9
--- NOTE | 2017-07-10 14:16 | ED PDOC ---
HPI: Abdomen Time Seen by Provider: 07/10/17 13:15 Chief Complaint (Nursing): Abdominal Pain Chief Complaint (Provider): Abdominal Pain History Per: Patient History/Exam Limitations: no limitations Current Symptoms Are (Timing): Still Present Additional Complaint(s): 57-year-old male, with a history of asthma and gastritis, presents to ED complaining of epigastric pain radiating to back. Patient states feels similar to symptoms from 3 weeks ago. Reports feeling a little nauseous and wheezing. (- ) fever, (-) vomiting, (-) diarrhea, (-) urinary symptoms. PMD: Clinic Past Medical History Reviewed: Historical Data, Nursing Documentation, Vital Signs Vital Signs: Last Vital Signs Temp 98 F 07/10/17 18:12 Pulse 70 07/10/17 18:12 Resp 20 07/10/17 18:12 BP 110/70 07/10/17 18:12 Pulse Ox 98 07/10/17 18:12 - Medical History PMH: Anxiety, Arthritis, Asthma, Back Problems, Benign Prostatic Hyperplasia, COPD, Diverticulitis, Gastritis, Hiatal Hernia, HTN, Hypercholesterolemia, Chronic Pain (Chronic back pain due to spinal stenosis) Denies: CHF, HIV, Chronic Kidney Disease - Surgical History Surgical History: Endoscopy, Hernia Repair - Family History Family History: States: [place], CAD, Diabetes, Hypertension - Social History Current smoker - smoking cessation education provided: No Alcohol: None Drugs: Denies - Immunization History Hx Tetanus Toxoid Vaccination: No Hx Influenza Vaccination: No Hx Pneumococcal Vaccination: No - Home Medications Home Medications: Ambulatory Orders Medication Instructions Recorded Metoprolol Tartrate 25 mg PO BID 03/15/15 Lisinopril [Zestril] 40 mg PO DAILY 11/09/15 Acetaminophen/Oxycodone Hydr 1 tab PO TID 01/16/17 [Percocet 10/325 mg Tab] Albuterol HFA [Ventolin HFA 90 2 puff IH BID PRN 01/16/17 mcg/actuation (8 g)] Atorvastatin [Lipitor] 40 mg PO DAILY 01/16/17 Cyclobenzaprine [Cyclobenzaprine 10 mg PO DAILY PRN 01/16/17 HCl] Fluticasone/Salmeterol 500/50 2 puff INH BID 01/16/17 [Advair Diskus 500/50] Gabapentin [Neurontin] 1,200 mg PO TID 01/16/17 Morphine Sulfate [Ms Contin] 30 mg PO BID 01/16/17 Pantoprazole Sodium [Protonix] 40 mg PO DAILY 05/10/17 hydroCHLOROthiazide [Hydrodiuril] 25 mg PO DAILY 05/10/17 - Allergies Allergies/Adverse Reactions: Allergies Allergy/AdvReac Type Severity Reaction Status Date / Time No Known Allergies Allergy Verified 06/09/17 20:52 Review of Systems ROS Statement: Except As Marked, All Systems Reviewed And Found Negative Constitutional: Negative for: Fever Gastrointestinal: Positive for: Nausea. Negative for: Vomiting, Diarrhea Genitourinary Male: Negative for: Dysuria, Hematuria Physical Exam - Reviewed Nursing Documentation Reviewed: Yes Vital Signs Reviewed: Yes - Physical Exam Appears: Positive for: Well Head Exam: Positive for: ATRAUMATIC, NORMAL INSPECTION, NORMOCEPHALIC Skin: Positive for: Normal Color, Warm, Dry Eye Exam: Positive for: Normal appearance, EOMI, PERRL ENT: Positive for: Normal ENT Inspection Neck: Positive for: Normal Cardiovascular/Chest: Positive for: Regular Rate, Rhythm Respiratory: Positive for: Wheezing (Slight wheezing with good entry) Gastrointestinal/Abdominal: Positive for: Normal Exam Back: Positive for: Normal Inspection Extremity: Positive for: Normal ROM. Negative for: Deformity Neurologic/Psych: Positive for: Alert, Oriented (x 3) - Laboratory Results Result Diagrams: 07/10/17 14:40 07/10/17 14:40 - ECG O2 Sat by Pulse Oximetry: 99 (RA) Pulse Ox Interpretation: Normal Medical Decision Making Medical Decision Making: Time: 14:16 Plan: - CMP - Lipase - CBC (with differentials) - Albuterol 0.083% Inhal Leeanna (2.5 g/ 3ml) UD - Peak Flow Pre/Post Treatment Urine: (-)for infection. Time 16:58 Patient now reports that he wants to get his gallbladder checked out because he has a history of gallstones. Plan: --Gallbladder and common duct US US FINDINGS: LIVER: Measures 15.2 cm in length. Increased echogenicity of the liver parenchyma is noted suggesting diffuse fatty infiltration. No mass. No intrahepatic bile duct dilatation. GALLBLADDER: Unremarkable. No gallstones. COMMON BILE DUCT: Measures 4.2 mm. No stones. No dilatation. PANCREAS: Unremarkable as visualized. No mass. No ductal dilatation. RIGHT KIDNEY: Measures 11.2 cm in length. A small cyst is seen related to the lower pole right kidney which appears simple and measures 1 point 5 cm greatest dimension with the right kidney parenchyma otherwise unremarkable. No calculus, mass, or hydronephrosis. AORTA: No aneurysmal dilatation. IVC: Unremarkable. OTHER FINDINGS: None . IMPRESSION: Small simple cyst lower pole right kidney with remainder of this limited abdomen ultrasound exam unremarkable grossly. pt aware of results of imaging. labs unremarkable. pt eating tray of food. feels improved. Upon provider evaluation patient is medically stable, and requires no further treatment in the ED at this time. Patient will be discharged. Counseling was provided and all questions were answered regarding diagnosis and need for follow up with PCP. There is agreement to discharge plan. Return if symptoms persist or worsen. Scribe Attestation: Documented by Jourdan Collins, acting as a scribe for Javier Goldman MD. Provider Scribe Attestation: All medical record entries made by the Scribe were at my direction and personally dictated by me. I have reviewed the chart and agree that the record accurately reflects my personal performance of the history, physical exam, medical decision making, and the department course for this patient. I have also personally directed, reviewed, and agree with the discharge instructions and disposition. Disposition - Clinical Impression Clinical Impression: Asthma, Gastritis - Patient ED Disposition Is Patient to be Admitted: No Counseled Patient/Family Regarding: Studies Performed, Diagnosis, Need For Followup - Disposition Referrals: [facility] [Outside] [facility] [Outside] Disposition: Routine/Home Disposition Time: 16:10 Condition: IMPROVED Additional Instructions: follow up in the clinic in 1-2 days for reevaluation return to the ED with any worsening or concerning symptoms Instructions: Asthma, Adult (DC), Gastritis (DC) Forms: [employer] (Bulgarian)
[2017-07-10] MEDS ORDERED: Albuterol 0.083% Inhal Sol (2.5 mg/3 mL) UD INH ONE (14:17)
[2017-07-10] MEDS ORDERED: Albuterol 0.083% Inhal Sol (2.5 mg/3 mL) UD ONE (14:33)
[2017-07-10 14:48] LABS: BASO % 0.5 % (0.0-2.0); EOS # 0.2 K/uL (0.0-0.7); EOS % 2.2 % (0.0-4.0); HEMOGLOBIN 13.9 g/dL (12.0-18.0); LYMPH # 0.9 K/uL (1.0-4.3); LYMPH % 13.1 % (20.0-40.0); MEAN CORPUSCULAR HEMOGLOBIN 27.6 pg (27.0-31.0); MEAN CORPUSCULAR HGB CONC 33.7 g/dL (33.0-37.0); MEAN PLATELET VOLUME 11.3 fl (7.2-11.7); MONO # 0.5 K/uL (0.0-0.8); MONO % 7.8 % (0.0-10.0); NEUT # 5.4 K/uL (1.8-7.0); NEUT % 76.4 % (50.0-75.0); RBC 5.04 Mil/uL (4.40-5.90)
[2017-07-10 14:57] LABS: ALB/GLOB RATIO 1.5 (1.0-2.1); ALT/SGPT 36 U/L (21-72); AST/SGOT 28 U/L (17-59); BLOOD UREA NITROGEN 18 mg/dl (9-20); CALCIUM 9.2 mg/dL (8.4-10.2); GFR AFRICAN-AMERICAN > 60; GFR NON-AFRICAN AMERICAN > 60; LIPASE 122 U/L (23-300)
--- NOTE | 2017-07-10 17:52 | US ---
HISTORY: history of gallstones COMPARISON: None. TECHNIQUE: Sonographic evaluation of the right upper quadrant of the abdomen. FINDINGS: LIVER: Measures 15.2 cm in length. Increased echogenicity of the liver parenchyma is noted suggesting diffuse fatty infiltration. No mass. No intrahepatic bile duct dilatation. GALLBLADDER: Unremarkable. No gallstones. COMMON BILE DUCT: Measures 4.2 mm. No stones. No dilatation. PANCREAS: Unremarkable as visualized. No mass. No ductal dilatation. RIGHT KIDNEY: Measures 11.2 cm in length. A small cyst is seen related to the lower pole right kidney which appears simple and measures 1 point 5 cm greatest dimension with the right kidney parenchyma otherwise unremarkable. No calculus, mass, or hydronephrosis. AORTA: No aneurysmal dilatation. IVC: Unremarkable. OTHER FINDINGS: None . IMPRESSION: Small simple cyst lower pole right kidney with remainder of this limited abdomen ultrasound exam unremarkable grossly.
[2017-07-10 18:13] VITALS: BP 110/70; PULSE 70; RESP 20; TEMP 98
[2017-07-11 10:02] VITALS: O2SAT 99
== END 2017-07-10 18:27 | disposition home or self-care (01) ==
LOC: H.ER 13:14
DX: J45.909 Unspecified asthma, uncomplicated (principal); K29.70 Gastritis, unspecified, without bleeding; N28.1 Cyst of kidney, acquired; E78.00 Pure hypercholesterolemia, unspecified; F41.9 Anxiety disorder, unspecified; G89.29 Other chronic pain; I10 Essential (primary) hypertension

== ENCOUNTER 2017-07-12 08:10 | Emergency (ER) | payer MEDICAID ==
[2017-07-12 08:17] VITALS: BMI 26.4
[2017-07-12 08:19] VITALS: O2SAT 98
--- NOTE | 2017-07-12 09:13 | ED PDOC ---
HPI: Chest Pain Chief Complaint (Provider): chest pain History Per: Patient History/Exam Limitations: no limitations Onset/Duration Of Symptoms: Hrs Current Symptoms Are (Timing): Better Context: Other (after going up and down a few steps) Severity: Moderate Pain Scale Rating Of: 7 Quality: Dull Associated Symptoms: Nausea. denies: Dyspnea, Diaphoresis, Syncope Exacerbating Factors: None Alleviating Factors: Other (3 baby aspirins) <Diann Ramos - Last Filed: 07/12/17 16:36> <Marilynn Brunson - Last Filed: 07/13/17 17:35> Time Seen by Provider: 07/12/17 08:37 Chief Complaint (Nursing): Chest Pain Additional Complaint(s): 57 yr old M presents with complaint of chest pain which occurred prior to arrival while he went up and down a 3 short flights of stairs. Pain is located in sternal area radiating to epigastric area, describes as dull ache with intermittent burning sensation. Tolerated a can of ensure and took his medications including Protonix this AM. PMHx includes hypertension, asthma, gastritis, chronic back pain and chronic intermittent abdominal pain. Denies hx of CHF, coronary artery disease, [place]. Associated symptoms are palpitations, nausea and dizziness. Patients symptoms improved with 3 baby aspirins which he took prior to arrival. Denies sweating, vomiting, diarrhea or syncope. PMD: PAC (Diann Ramos) Supervising Attending Note - Supervising Attending Note The Documented history was done by the: Physician Proofing Machine Operator, Attending Physician The documented physical exam was done by the: Physician Proofing Machine Operator, Attending Physician The documented procedures were done by the: Physician Proofing Machine Operator, Attending Physician - Attestation: I have personally seen and examined this patient.: Yes I have fully participated in the care of the patient.: Yes I have reviewed all pertinent clinical information: Yes <Marilynn Brunson - Last Filed: 07/13/17 17:35> Past Medical History - Medical History PMH: Anxiety, Arthritis, Asthma, Back Problems, Benign Prostatic Hyperplasia, COPD, Diverticulitis, Gastritis, Hiatal Hernia, HTN, Hypercholesterolemia, Chronic Pain (Chronic back pain due to spinal stenosis) Denies: CHF, HIV, Chronic Kidney Disease - Surgical History Surgical History: Endoscopy, Hernia Repair - Family History Family History: States: [place], CAD, Diabetes, Hypertension - Living Arrangements Living Arrangements: With Family - Social History Current smoker - smoking cessation education provided: No Ex-Smoker (has not smoked in the last 12 months): No Alcohol: None Drugs: Denies - Immunization History Hx Tetanus Toxoid Vaccination: No Hx Influenza Vaccination: No Hx Pneumococcal Vaccination: No <Diann Ramos - Last Filed: 07/12/17 16:36> <Marilynn Brunson - Last Filed: 07/13/17 17:35> Vital Signs: Last Vital Signs Temp 98.1 F 07/12/17 11:11 Pulse 67 07/12/17 11:11 Resp 18 07/12/17 11:11 BP 117/81 07/12/17 11:11 Pulse Ox 98 07/12/17 16:36 - Home Medications Home Medications: Ambulatory Orders Medication Instructions Recorded Metoprolol Tartrate 25 mg PO BID 03/15/15 Lisinopril [Zestril] 40 mg PO DAILY 11/09/15 Acetaminophen/Oxycodone Hydr 1 tab PO TID 01/16/17 [Percocet 10/325 mg Tab] Albuterol HFA [Ventolin HFA 90 2 puff IH BID PRN 01/16/17 mcg/actuation (8 g)] Atorvastatin [Lipitor] 40 mg PO DAILY 01/16/17 Cyclobenzaprine [Cyclobenzaprine 10 mg PO DAILY PRN 01/16/17 HCl] Fluticasone/Salmeterol 500/50 2 puff INH BID 01/16/17 [Advair Diskus 500/50] Gabapentin [Neurontin] 1,200 mg PO TID 01/16/17 Morphine Sulfate [Ms Contin] 30 mg PO BID 01/16/17 Pantoprazole Sodium [Protonix] 40 mg PO DAILY 05/10/17 hydroCHLOROthiazide [Hydrodiuril] 25 mg PO DAILY 05/10/17 - Allergies Allergies/Adverse Reactions: Allergies Allergy/AdvReac Type Severity Reaction Status Date / Time No Known Allergies Allergy Verified 06/09/17 20:52 STALIN Risk Score for UA/NSTEMI - STALIN Risk Score Age > 64: NO 3 or more CAD Risk Factors: NO Known CAD (Stenosis greater than 50%): NO Aspirin use in past 7 days: YES Severe Angina: NO EKG ST changes greater than 0.5mm: NO STALIN Score: 1 Risk %: 5% <Diann Ramos - Last Filed: 07/12/17 16:36> Curb-65 Severity Score - CURB-65 Severity Score Confusion: No Respiratory Rate greater than/equal to 30: No Systolic BP <90 or Diastolic BP less than/equal 60mmHg: No Age >64: No Curb-65 Score: 0 Percentage 30-day mortality: 0.6% <Na Ramosa Last Filed: 07/12/17 16:36> Wells Criteria for PE - Wells Criteria for Pulmonary Embolism Clinical Signs and Symptoms of DVT: No P.E is #1 Diagnosis, or Equally Likely: No Heart Rate >100: No Immobilization at least 3 days;Surgery previous 4 weeks: No Previous, objectively diagnosed PE or DVT: No Hemoptysis: No Malignancy w/treatment within 6 months, or palliative: No Total Score: 0 <Diann Ramos Last Filed: 07/12/17 16:36> Review of Systems Constitutional: Negative for: Fever, Chills, Sweats, Weakness Eyes: Negative for: Vision Change ENT: Negative for: Nose Discharge, Throat Pain Cardiovascular: Positive for: Chest Pain, Palpitations. Negative for: Edema, Light Headedness Respiratory: Negative for: Cough, Shortness of Breath, Wheezing Gastrointestinal: Positive for: Nausea. Negative for: Vomiting, Abdominal Pain , Diarrhea Genitourinary Male: Negative for: Dysuria, Frequency Musculoskeletal: Positive for: Back Pain (chronic). Negative for: Neck Pain, Shoulder Pain, Arm Pain Neurological: Negative for: Weakness, Numbness, Confusion Psych: Positive for: Anxiety <Diann Ramos Last Filed: 07/12/17 16:36> Physical Exam - Physical Exam Appears: Positive for: No Acute Distress Head Exam: Positive for: ATRAUMATIC, NORMOCEPHALIC Skin: Positive for: Normal Color, Warm, Dry Eye Exam: Positive for: EOMI, PERRL ENT: Negative for: Pharyngeal Erythema, Tonsillar Exudate Neck: Positive for: Painless ROM, Supple Cardiovascular/Chest: Positive for: Regular Rate, Rhythm. Negative for: Gallop , JVD, Murmur Respiratory: Positive for: Normal Breath Sounds. Negative for: Rales, Rhonchi, Wheezing Pulses-Carotid (L): 2+ Pulses-Carotid (R): 2+ Pulses-Radial (L): 2+ Pulses-Radial (R): 2+ Gastrointestinal/Abdominal: Positive for: Bowel Sounds (normal), Soft. Negative for: Tenderness Back: Positive for: Normal Inspection. Negative for: L CVA Tenderness, R CVA Tenderness Extremity: Positive for: Normal ROM. Negative for: Pedal Edema, Calf Tenderness , Swelling Lymphatic: Negative for: Adenopathy Neurologic/Psych: Positive for: Alert, flask maker II-XII (intact), Oriented, Mood/ Affect (normal/full range), Gait (normal). Negative for: Motor/Sensory Deficits <Diann Ramos - Last Filed: 07/12/17 16:36> - ECG O2 Sat by Pulse Oximetry: 98 - Progress Condition: Improved <Diann Ramos - Last Filed: 07/12/17 16:36> <Marilynn Brunson - Last Filed: 07/13/17 17:35> - Progress ED Course And Treament: -EKG: normal sinus rhythm, no ST-T changes -9:20am: troponins negative -accucheck: wnl -Chest xray: negative -symptoms improved and patient remained asymptomatic in ED, with normal vital signs, tolerated PO diet, ambulating without difficulty -16:03 serial troponin negative (Diann Ramos) Disposition - Patient ED Disposition Is Patient to be Admitted: No Counseled Patient/Family Regarding: Need For Followup - Disposition Disposition: Routine/Home Disposition Time: 16:04 <Diann Ramos - Last Filed: 07/12/17 16:36> <Marilynn Brunson - Last Filed: 07/13/17 17:35> - Clinical Impression Clinical Impression: Acute chest pain - Disposition Referrals: [facility] [Provider Group] Condition: IMPROVED Additional Instructions: -Follow up with your PMD within 1 week -return to ED if worsening symptoms or any concerns -resume home medications as prescribed Instructions: Chest Pain (DC) Forms: [email or web address] (Setswana)
[2017-07-12] MEDS ORDERED: Pantoprazole 40 mg EC Tab PO STA (11:07)
[2017-07-12 11:11] VITALS: BP 117/81; PULSE 67; RESP 18; TEMP 98.1
[2017-07-12] MEDS ORDERED: Pantoprazole 40 mg EC Tab PO ONE (11:13)
--- NOTE | 2017-07-12 11:13 | RAD ---
HISTORY: chest pain, palpitations COMPARISON: Comparison chest dated 07/16/2016. TECHNIQUE: Chest PA and lateral FINDINGS: LUNGS: No active pulmonary disease. PLEURA: No significant pleural effusion identified. No pneumothorax apparent. CARDIOVASCULAR: Normal. OSSEOUS STRUCTURES: No significant abnormalities. VISUALIZED UPPER ABDOMEN: Normal. OTHER FINDINGS: None. IMPRESSION: No active disease.
[2017-07-12] MEDS ORDERED: Alum-Mag Hydrox-Simethicone Susp (30 mL) PO ONE (14:47)
[2017-07-12] MEDS ORDERED: Alum-Mag Hydrox-Simethicone Susp (30 mL) ONE (15:08)
--- NOTE | 2017-07-12 17:52 | CARD ---
APPROVED REPORT EKG Measurement Heart [id number] <Conclusion> Normal sinus rhythm Normal ECG
== END 2017-07-12 16:46 | disposition home or self-care (01) ==
LOC: H.ER 08:10
DX: R07.9 Chest pain, unspecified (principal); G89.29 Other chronic pain; I10 Essential (primary) hypertension; J44.9 Chronic obstructive pulmonary disease, unspecified; Z82.49 Family history of ischemic heart disease and other diseases of the circulatory system; Z87.891 Personal history of nicotine dependence; N40.0 Benign prostatic hyperplasia without lower urinary tract symptoms; E78.00 Pure hypercholesterolemia, unspecified

== ENCOUNTER 2017-07-14 03:15 | Observation (INO) | payer MEDICAID ==
[2017-07-14 03:15] VITALS: BMI 26.4
[2017-07-14] MEDS ORDERED: Sodium Chloride 0.9% 1,000 ML IV STA (03:57)
[2017-07-14 04:10] LABS: BASO % 0.6 % (0.0-2.0); EOS # 0.2 K/uL (0.0-0.7); EOS % 2.9 % (0.0-4.0); HEMOGLOBIN 16.9 g/dL (12.0-18.0); LYMPH # 1.5 K/uL (1.0-4.3); MEAN CORPUSCULAR HEMOGLOBIN 28.4 pg (27.0-31.0); MEAN CORPUSCULAR HGB CONC 34.6 g/dL (33.0-37.0); MEAN PLATELET VOLUME 12.3 fl (7.2-11.7); MONO # 0.5 K/uL (0.0-0.8); MONO % 7.7 % (0.0-10.0); NEUT # 4.3 K/uL (1.8-7.0); NEUT % 65.8 % (50.0-75.0); NRBC % 0.1 % (0.0-0.0); RBC 5.95 Mil/uL (4.40-5.90); RED CELL DISTRIBUTION WIDTH 13.2 % (11.5-14.5); WHITE BLOOD COUNT 6.6 K/uL (4.8-10.8)
--- NOTE | 2017-07-14 04:22 | ED PDOC ---
HPI: Abdomen Time Seen by Provider: 07/14/17 03:38 Chief Complaint (Nursing): Abdominal Pain Chief Complaint (Provider): Abdominal Pain History Per: Patient History/Exam Limitations: no limitations Onset/Duration Of Symptoms: Persistent (x1 month) Current Symptoms Are (Timing): Still Present Additional Complaint(s): 57 year old male, presents to the emergency department with a complaint of worsening abdominal pain associated with nonbloody, watery, loose diarrhea and weight loss (30-40lbs) ongoing for 1 month. Patient reports he has [facility] evaluated [facility] and [facility] for similar symptoms but has not experienced any relief. PMD: Jen Mathias MD Past Medical History Reviewed: Historical Data, Nursing Documentation, Vital Signs Vital Signs: Last Vital Signs Temp 97.8 F 07/15/17 01:00 Pulse 63 07/15/17 01:00 Resp 20 07/15/17 01:00 BP 99/64 L 07/15/17 01:00 Pulse Ox 97 07/15/17 01:00 - Medical History PMH: Anxiety, Arthritis, Asthma, Back Problems, Benign Prostatic Hyperplasia, COPD, Diverticulitis, Gastritis, Hiatal Hernia, HTN, Hypercholesterolemia, Chronic Pain (Chronic back pain due to spinal stenosis) Denies: CHF, HIV, Chronic Kidney Disease - Surgical History Surgical History: Endoscopy, Hernia Repair - Family History Family History: States: [place], CAD, Diabetes, Hypertension - Social History Current smoker - smoking cessation education provided: No Alcohol: None Drugs: Denies - Immunization History Hx Tetanus Toxoid Vaccination: No Hx Influenza Vaccination: No Hx Pneumococcal Vaccination: No - Home Medications Home Medications: Ambulatory Orders Medication Instructions Recorded Metoprolol Tartrate 25 mg PO BID 03/15/15 Lisinopril [Zestril] 40 mg PO DAILY 11/09/15 Acetaminophen/Oxycodone Hydr 1 tab PO TID 01/16/17 [Percocet 10/325 mg Tab] Albuterol HFA [Ventolin HFA 90 2 puff IH BID PRN 01/16/17 mcg/actuation (8 g)] Atorvastatin [Lipitor] 40 mg PO DAILY 01/16/17 Fluticasone/Salmeterol 500/50 2 puff INH BID 01/16/17 [Advair Diskus 500/50] Morphine Sulfate [Ms Contin] 30 mg PO BID 01/16/17 Pantoprazole Sodium [Protonix] 40 mg PO DAILY 05/10/17 hydroCHLOROthiazide [Hydrodiuril] 25 mg PO DAILY 05/10/17 - Allergies Allergies/Adverse Reactions: Allergies Allergy/AdvReac Type Severity Reaction Status Date / Time No Known Allergies Allergy Verified 06/09/17 20:52 Review of Systems ROS Statement: Except As Marked, All Systems Reviewed And Found Negative Constitutional: Positive for: Weight loss (30-40lbs) Gastrointestinal: Positive for: Abdominal Pain, Diarrhea (nonbloody, loose and watery). Negative for: Vomiting Physical Exam - Reviewed Nursing Documentation Reviewed: Yes Vital Signs Reviewed: Yes - Physical Exam Appears: Positive for: No Acute Distress (Cachexic) Head Exam: Positive for: ATRAUMATIC, NORMAL INSPECTION, NORMOCEPHALIC Eye Exam: Positive for: Normal appearance ENT: Positive for: Other (dry mucous membranes). Negative for: Pharyngeal Erythema, Tonsillar Swelling Cardiovascular/Chest: Positive for: Regular Rate, Rhythm. Negative for: Murmur Respiratory: Positive for: Normal Breath Sounds. Negative for: Wheezing, Respiratory Distress Gastrointestinal/Abdominal: Positive for: Soft, Tenderness (diffuse mildly) Back: Positive for: Normal Inspection. Negative for: L CVA Tenderness, R CVA Tenderness Extremity: Positive for: Normal ROM (upper/lower). Negative for: Pedal Edema ( bilateral) Neurologic/Psych: Positive for: Alert, Oriented. Negative for: Motor/Sensory Deficits - Laboratory Results Result Diagrams: 07/14/17 04:07 07/14/17 04:07 - ECG O2 Sat by Pulse Oximetry: 97 (RA) Pulse Ox Interpretation: Normal Medical Decision Making Medical Decision Making: Initial Impression: 57 year old male with abdominal pain, diarrhea and cachexia Initial Plan: * EKG * CMP * Lipase * Urine dipstick * CBC * NS 1,000ml IV per 1,000mls/hr * HIV rapid * UA Time: 414 --CT scan deferred as patient had imagining performed 2 weeks ago. Labs reviewed show no clinically sig abnlties --Patient requires hospital admission in setting of severe weight loss and abdominal pain with multiple ED visits and outpatient clinic visits in past 2 months Case referred to Dr Alexandra NAQVI ASHLEY Scribe Attestation: Documented by Julianna Jhaveri, acting as a scribe for Andrew Castillo MD. Provider Scribe Attestation: All medical record entries made by the Scribe were at my direction and personally dictated by me. I have reviewed the chart and agree that the record accurately reflects my personal performance of the history, physical exam, medical decision making, and the department course for this patient. I have also personally directed, reviewed, and agree with the discharge instructions and disposition. Disposition - Clinical Impression Clinical Impression: Abdominal pain, Cachexia - Patient ED Disposition Is Patient to be Admitted: Yes - Disposition Disposition Time: 04:00 Condition: FAIR
[2017-07-14 05:05] LABS: URINE BILIRUBIN NEGATIVE (NEGATIVE); URINE BLOOD NEGATIVE (NEGATIVE); URINE CLARITY CLEAR (Clear); URINE COLOR YELLOW (YELLOW); URINE GLUCOSE (UA) NEG (Normal); URINE LEUKOCYTE ESTERASE NEG Leu/uL (Negative); URINE PROTEIN NEGATIVE (NEGATIVE); URINE UROBILINOGEN 0.2-1.0 mg/dL (0.2-1.0)
[2017-07-14 05:17] LABS: ALB/GLOB RATIO 1.7 (1.0-2.1); ALBUMIN 4.9 g/dL (3.5-5.0); ALT/SGPT 44 U/L (21-72); AST/SGOT 27 U/L (17-59); BLOOD UREA NITROGEN 15 mg/dl (9-20); CALCIUM 10.2 mg/dL (8.4-10.2); GFR AFRICAN-AMERICAN > 60; GFR NON-AFRICAN AMERICAN > 60; LIPASE 160 U/L (23-300)
--- NOTE | 2017-07-14 06:07 | CP.PCM.HP ---
History of Present Illness - History of Present Illness History of Present Illness: 57 yo M with PMH diverticulitis, cholelithiasis, hypertension, asthma, hyperlipidemia, gastritis, chronic back pain presents to ED c/o generalized diffuse abdominal pain started 2 months ago when patient diagnosed with cholelithiasis. Reports abd pain diffuse in different locations epigasric, some times RLQ, or LLQ and unable to point a location today, intensity 5/10, burning , no postprandial, associated with nonbloddy diarrhea started 2 days ago, 3 episodes of diarrhea yesterday. He denies fever, nausea, vomiting, constipation , rectal bleeding, cough, SOB, dysuria, hematuria. After diagnosis of cholelithiasis patient was instructed to have a low fat diet and also he has cut down carbohydrates and has been loosing 19 lbs in 25 days. Patient reports to be stressed due family situation( mother with dementia, brother with tracheal Ca and peg tube and issues and diagnosis of cholelithiasis or not cholecystitis. Reports anxiety and had a episode of panic attack yesterday . Denies depression, anhedonia, suicidal ideation, hx/o psyq problems. On evaluation in ED patient in not acute distress with mild abd pain, difusse, unable to located well. PMD: [facility], Dr. Salazar. Last visit 07/05/17 PMH: HTN, HLD, asthma, diverticulitis, cholelithiasis, chronic back/neck pain ( sees pain management) Past Surg hx: left sided abdominal hernia repair (9 y ago), hemorrhoidectomy ( 10 y ago) Social hx: denies tobacco use, denies current alcohol use (used to be a heavy drinker until 3-4 yrs ago), denies recent drug use (cocaine use 4 yrs ago) Fam hx: DM2, HTN, brother passed due to liver ca Allergies: NKDA Meds: metoprolol, lisinopril, hctz, lipitor, advair, albuterol, percocet, MS contin Ed Course VS: normal Labs: CBC: 6.6>16.9<97 CMP: normal Bili: 2.4 Imaging: EKG: NSR Meds: Bentyl Present on Admission - Present on Admission Any Indicators Present on Admission: No History of DVT/PE: No History of Uncontrolled Diabetes: No Decubitus Ulcer Present: No Review of Systems - Review of Systems All systems: reviewed and no additional remarkable complaints except - Gastrointestinal Gastrointestinal: Abdominal Pain, Diarrhea Past Patient History - Infectious Disease Hx of Infectious Diseases: None - Tetanus Immunizations Tetanus Immunization: Unknown - Past Medical History & Family History Past Medical History?: Yes - Past Social History Alcohol: None Drugs: Denies - CARDIAC Hx Congestive Heart Failure: No Hx Hypercholesterolemia: Yes Hx Hypertension: Yes - PULMONARY Hx Asthma: Yes Hx Chronic Obstructive Pulmonary Disease (COPD): Yes - NEUROLOGICAL Hx Neurological Disorder: No Other/Comment: NUMBERNESS .TINGLING LEFT ARM - HEENT Hx HEENT Problems: No Other/Comment: 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 - RENAL Hx Chronic Kidney Disease: No - ENDOCRINE/METABOLIC Hx Endocrine Disorders: No Other/Comment: HYPOGLYCEMIA - HEMATOLOGICAL/ONCOLOGICAL Hx Human Immunodeficiency Virus (HIV): No - INTEGUMENTARY Hx Dermatological Problems: No - MUSCULOSKELETAL/RHEUMATOLOGICAL Hx Arthritis: Yes - GASTROINTESTINAL Hx Diverticulitis: Yes Hx Gastritis: Yes - GENITOURINARY/GYNECOLOGICAL Hx Genitourinary Disorders: No Hx Prostate Problems: Yes - PSYCHIATRIC Hx Anxiety: Yes - ANESTHESIA Hx Anesthesia: Yes Hx Anesthesia Reactions: No Hx Malignant Hyperthermia: No Meds Allergies/Adverse Reactions: Allergies Allergy/AdvReac Type Severity Reaction Status Date / Time No Known Allergies Allergy Verified 06/09/17 20:52 Physical Exam - Constitutional Appears: Non-toxic - Head Exam Head Exam: ATRAUMATIC, NORMOCEPHALIC - Eye Exam Eye Exam: Normal appearance - ENT Exam ENT Exam: Mucous Membranes Moist - Respiratory Exam Respiratory Exam: Clear to Auscultation Bilateral. absent: Rales - Cardiovascular Exam Cardiovascular Exam: REGULAR RHYTHM, +S2 - GI/Abdominal Exam GI & Abdominal Exam: Normal Bowel Sounds, Soft. absent: Guarding, Rebound - Extremities Exam Extremities exam: Positive for: normal inspection. Negative for: calf tenderness, pedal edema - Neurological Exam Neurological exam: Alert, Oriented x3 - Psychiatric Exam Psychiatric exam: Normal Affect, Normal Mood - Skin Skin Exam: Intact Results - Vital Signs Recent Vital Signs: Last Vital Signs Temp 97.2 F L 07/14/17 05:52 Pulse 67 07/14/17 06:05 Resp 18 07/14/17 06:05 BP 133/80 07/14/17 06:05 Pulse Ox 100 07/14/17 06:05 - Labs Result Diagrams: 07/14/17 04:07 07/14/17 04:07 Labs: Laboratory Results - last 24 hr 07/14/17 07/14/17 07/14/17 04:07 04:07 04:24 WBC 6.6 RBC 5.95 H Hgb 16.9 D Hct 48.8 MCV 82.0 MCH 28.4 MCHC 34.6 RDW 13.2 Plt Count 97 L MPV 12.3 H Neut % (Auto) 65.8 Lymph % (Auto) 23.0 [place] % (Auto) 7.7 Eos % (Auto) 2.9 Baso % (Auto) 0.6 Neut # (Auto) 4.3 Lymph # (Auto) 1.5 [place] # (Auto) 0.5 Eos # (Auto) 0.2 Baso # (Auto) 0.0 Sodium 137 Potassium 4.0 Chloride 94 L Carbon Dioxide 32 H Anion Gap 15 BUN 15 Creatinine 0.9 Est GFR ( Amer) > 60 Est GFR (Non-Af Amer) > 60 Random Glucose 111 H Calcium 10.2 Total Bilirubin 2.4 H AST 27 ALT 44 Alkaline Phosphatase 69 Total Protein 7.8 Albumin 4.9 Globulin 2.9 Albumin/Globulin Ratio 1.7 Lipase 160 TSH 3rd Generation Urine Color Yellow Urine Clarity Clear Urine pH 6.0 Ur Specific [place] 1.009 Urine Protein Negative Urine Glucose (UA) Neg Urine Ketones Negative Urine Blood Negative Urine Nitrate Negative Urine Bilirubin Negative Urine Urobilinogen 0.2-1.0 Ur Leukocyte Esterase Neg Urine RBC (Auto) 2 Urine Microscopic WBC < 1 HIV-1 Ab Rapid Screen 07/14/17 07/14/17 04:24 04:24 WBC RBC Hgb Hct MCV MCH MCHC RDW Plt Count MPV Neut % (Auto) Lymph % (Auto) [place] % (Auto) Eos % (Auto) Baso % (Auto) Neut # (Auto) Lymph # (Auto) [place] # (Auto) Eos # (Auto) Baso # (Auto) Sodium Potassium Chloride Carbon Dioxide Anion Gap BUN Creatinine Est GFR ( Amer) Est GFR (Non-Af Amer) Random Glucose Calcium Total Bilirubin AST ALT Alkaline Phosphatase Total Protein Albumin Globulin Albumin/Globulin Ratio Lipase TSH 3rd Generation 2.25 Urine Color Urine Clarity Urine pH Ur Specific [place] Urine Protein Urine Glucose (UA) Urine Ketones Urine Blood Urine Nitrate Urine Bilirubin Urine Urobilinogen Ur Leukocyte Esterase Urine RBC (Auto) Urine Microscopic WBC HIV-1 Ab Rapid Screen Non reactive Assessment & Plan - Assessment and Plan (Free Text) Plan: 57 yo M with PMH diverticulitis, cholelithiasis, hypertension, asthma, , hyperlipidemia, gastritis, chronic back pain admitted for abdominal pain and untentional severe weight loss. 1) Abdominal pain -unspecified -to r/o IBS, somatiform disorder -Abd US 04/[address] Abd 06/09/2017 showed tiny calcifications fundus gallbladder vs gallbladder wall calcification. Abd Us 07/10/17: no cholelithiasis -Colonoscopy 06/2014 diverticulosis and internal hemorroids -EGD 11/2016 Gastritis unspecified Bilirrubin noted high 2.4 -f/u total bilirrubin, direct bilirrubin. 2) Weight loss -intentional weight loss 19 lbs in 25 days after patient told to eat low fat diet -several stressor factors related -may need psyq evaluation and f/u [facility] -may get benefit with Remeron 3) Thrombocytopenia -may be related to chronic use of pain medications and bone marrow depression -plt 97 -f/u CBC 4)HTN -controlled c/w lisinopril, Hctz, metoprolol 5) Asthma -c/w home medications 6) Hyperlipidemia -c/w atrovastatin 7)Chronic back pain -on chronic pain medications -see by pain management last time 07/05 -c/w pain medications -asymptomatic in the admission 8) DVT Prophylaxis -SCD . no Lovenox due to thrombocytopenia
[2017-07-14] MEDS ORDERED: Enoxaparin 40 mg Syringe SC SCH (09:00)
[2017-07-14] MEDS ORDERED: Patient's Own Med (Lisinopril [Zestril] 40 MG) PO SCH (09:00)
[2017-07-14] MEDS: Pantoprazole 40 mg EC Tab PO SCH (11:59)
[2017-07-14] MEDS: Oxycodone/Acetaminophen 5/325 mg Tab PO PRN ×2 (12:18→20:33)
[2017-07-14] MEDS ORDERED: Simethicone 80 mg Chewtab PO PRN (15:59)
--- NOTE | 2017-07-14 16:25 | CP.PCM.PN ---
Subjective - Date & Time of Evaluation Date of Evaluation: 07/14/17 Time of Evaluation: 16:03 - Subjective Subjective: 57 y/o M evaluated and examined by bedside. Pt c/o abdominal pain, 7/10 intensity, begins on upper quadrants and radiates to all abdomen. Pt had diarrhea last night. --Pt reports having constipation, hard stool and tenesmus, once in a while due to chronic opioids therapy. --His brother last year and being diagnosed gallbladder duct cancer diagnosed 3 years ago. Objective - Vital Signs/Intake and Output Vital Signs (last 24 hours): Temp Pulse Resp BP Pulse Ox 98.1 F 63 18 122/80 95 07/14/17 09:00 07/14/17 09:00 07/14/17 09:00 07/14/17 12:02 07/14/17 09:00 - Medications Medications: Current Medications Acetaminophen (Tylenol 325mg Tab) 650 mg PO Q6 PRN PRN Reason: Pain, Mild (1-3) Acetaminophen (Tylenol 325mg Tab) 650 mg PO Q6 PRN PRN Reason: Fever >100.4 F Atorvastatin Calcium (Lipitor) 40 mg PO DAILY [facility] Hydrochlorothiazide (Hydrodiuril) 25 mg PO DAILY [facility] Last Admin: 07/14/17 12:01 Dose: 25 mg Lisinopril (Zestril) 40 mg PO DAILY [facility] Last Admin: 07/14/17 12:01 Dose: 40 mg Metoprolol Tartrate (Lopressor) 25 mg PO BID [facility] Last Admin: 07/14/17 12:02 Dose: 25 mg Ondansetron HCl (Zofran Inj) 4 mg IVP Q6 PRN PRN Reason: Nausea/Vomiting Oxycodone/Acetaminophen (Percocet 5/325 Mg Tab) 1 tab PO TID PRN PRN Reason: Pain, severe (8-10) Last Admin: 07/14/17 12:18 Dose: 1 tab Pantoprazole Sodium (Protonix Ec Tab) 40 mg PO DAILY [facility] Last Admin: 07/14/17 11:59 Dose: 40 mg Fluticasone/Salmeterol (Advair Diskus 500/50) 1 puff INH BID [facility] Simethicone (Mylicon Chew Tab) 80 mg PO PCHS PRN PRN Reason: Flatulence - Labs Labs: 07/14/17 04:07 07/14/17 04:07 - Constitutional Appears: Non-toxic - Eye Exam Eye Exam: EOMI - ENT Exam ENT Exam: Mucous Membranes Dry - Neck Exam Neck Exam: Full ROM. absent: Meningismus - Respiratory Exam Respiratory Exam: Clear to Ausculation Bilateral, NORMAL BREATHING PATTERN - Cardiovascular Exam Cardiovascular Exam: +S1, +S2 - GI/Abdominal Exam GI & Abdominal Exam: Soft, Tenderness (predominantly on LLQ.), Hyperactive Bowel Sounds. absent: Distended, Guarding, Rigid - Extremities Exam Extremities Exam: Full ROM. absent: Calf Tenderness, Pedal Edema - Neurological Exam Neurological Exam: Alert, Awake, Oriented x3 Assessment and Plan - Assessment and Plan (Free Text) Assessment: 57 yo M with PMH diverticulitis, cholelithiasis, hypertension, asthma, , hyperlipidemia, gastritis, chronic back pain admitted for abdominal pain and untentional severe weight loss. Abdominal pain -unspecified, Hx of diverticulosis; possibly pain due to IBS vs somatiform disorder. ---Colonoscopy 06/2014: diverticulosis and internal hemorroids (by Dr Franklin) ---EGD 11/2016 Gastritis unspecified (by Dr Hicks) ---H.Pylori 09/2016-negative. ---US Abdomen 04/2017 showed cholelithasis ---CT Abdomen 06/09/2017 showed tiny calcifications fundus gallbladder vs gallbladder wall calcification. ---Us Abdomen 07/10/2017: no cholelithiasis -Bilirrubin high 2.4 yesterday 07/20/17. -f/u total bilirrubin, direct bilirrubin, [id number] trypsin and CMP. -Considering low FODMAP diet initiation, -Pt to be seen by GI specialist, Dr Franklin on 07/19/17. Weight loss -Pt has followed a strict low calorie due to gallstone diagnosis. -Pt has lost >26lbs in 2 months. Thrombocytopenia -May be related to chronic use of pain medications and bone marrow depression -Plt 97 -Will repeat CBC HTN -controlled -c/w lisinopril, Hctz, metoprolol Asthma -c/w home medications Hyperlipidemia -c/w atorvastatin Chronic back pain -c/w home med: Percocet TID DVT Prophylaxis -SCD - No Lovenox due to thrombocytopenia
[2017-07-14] MEDS: Fluticasone-Salmeterol 500-50mcg Diskus INH SCH ×2 (18:27→18:28)
[2017-07-14 19:42] LABS: BILIRUBIN,DIRECT 0.2 mg/ml (0.0-0.4)
[2017-07-15 00:56] VITALS: PULSE 63
[2017-07-15 07:44] LABS: ALB/GLOB RATIO 1.6 (1.0-2.1); ALBUMIN 4.3 g/dL (3.5-5.0); ALT/SGPT 42 U/L (21-72); AST/SGOT 23 U/L (17-59); BILIRUBIN,DIRECT 0.3 mg/ml (0.0-0.4); BLOOD UREA NITROGEN 14 mg/dl (9-20); CALCIUM 9.5 mg/dL (8.4-10.2); GFR AFRICAN-AMERICAN > 60; GFR NON-AFRICAN AMERICAN > 60; HEMOGLOBIN 15.2 g/dL (12.0-18.0); MEAN CELL VOLUME 81.6 fl (80.0-94.0); MEAN CORPUSCULAR HEMOGLOBIN 27.5 pg (27.0-31.0); MEAN CORPUSCULAR HGB CONC 33.7 g/dL (33.0-37.0); RBC 5.51 Mil/uL (4.40-5.90); RED CELL DISTRIBUTION WIDTH 13.5 % (11.5-14.5); WHITE BLOOD COUNT 4.5 K/uL (4.8-10.8)
[2017-07-15 08:01] VITALS: BP 116/74; RESP 19; TEMP 98; O2SAT 96
[2017-07-15] MEDS: Fluticasone-Salmeterol 500-50mcg Diskus INH SCH (09:06)
[2017-07-15] MEDS: Pantoprazole 40 mg EC Tab PO SCH (09:07)
--- NOTE | 2017-07-15 11:06 | PQF GENQUE ---
This form is a permanent part of the medical record 07/15/17 Dr. Flavio Newsome, Please clarify the type of asthma. Documentation of a history of Asthma as an adult. Medication includes: Advair Diskus. Clarification of your documentation is requested to better reflect the severity of illness and intensity of treatment of your patient. Indicators present PHYSICIAN'S RESPONSE see discharge summary as per resident Please clarify the type of asthma if known [] Cough variant [] Exercise induced [] Late onset [] Mild intermittent [] Mild persistent [] Moderate persistent [] Severe persistent [] With bronchitis(please clarify acuity of bronchitis) [] With chronic lung disease (please document specific chronic lung disease ) [] Other (please specify) [] Clinically unable to determine [] Unknown Based on your medical judgment of the clinical indicators outlined above please clarify the following: [] Practitioner response [] If unable to determine, please check the box, sign and date. Present On Admission (POA) Indicator: [] Present at the time of admission [] Not present at the time of admission [] Clinically Undetermined In responding to this query, please exercise your independent professional judgment. The fact that a question is asked does not imply that any particular answer is desired or expected. Thank you for your clarification on this documentation. If you have any questions please call:ext [phone] * Thank you, Joselin Ochoa RN CDMP MTDD
[2017-07-15] MEDS: Oxycodone/Acetaminophen 5/325 mg Tab PO PRN (11:28)
--- NOTE | 2017-07-15 16:27 | CP.PCM.PN ---
Subjective - Date & Time of Evaluation Date of Evaluation: 07/15/17 Time of Evaluation: 11:00 - Subjective Subjective: 57 y/o M with a PMHx diverticulitis, cholelithiasis, hypertension, asthma, hyperlipidemia, gastritis and chronic back pain was admitted for evaluation and management of persistent abdominal pain and abrupt weight loss. Pt was diagnosed with cholelithiasis on 04/2017, and since then pt started a very strict low-fat diet. Pt was given Pantoprazole, Bentyl and Simethicone. ---Colonoscopy 06/2014: diverticulosis and internal hemorroids (by Dr Franklin) ---EGD 11/2016 Gastritis unspecified (by Dr Hicks) ---H.Pylori 09/2016-negative. ---US Abdomen 04/2017 showed cholelithasis ---CT Abdomen 06/09/2017 showed tiny calcifications fundus gallbladder vs gallbladder wall calcification. ---Us Abdomen 07/10/2017: no cholelithiasis. Pt afebrile, tolerating PO, educated on the need for outpatient work-up. Pt to be evaluated by GI specialist, Dr Franklin on 07/19/17. Will f/u with PMD within 1 week. Pt was intructed to continue soft bland diet. Objective - Vital Signs/Intake and Output Vital Signs (last 24 hours): Temp Pulse Resp BP Pulse Ox 98.0 F 63 19 116/74 96 07/15/17 08:00 07/15/17 09:08 07/15/17 08:00 07/15/17 09:08 07/15/17 08:00 - Labs Labs: 07/15/17 07:10 07/15/17 07:10 - Constitutional Appears: No Acute Distress - Head Exam Head Exam: NORMAL INSPECTION - Eye Exam Eye Exam: EOMI - ENT Exam ENT Exam: Mucous Membranes Moist - Neck Exam Neck Exam: Full ROM. absent: Meningismus - Respiratory Exam Respiratory Exam: Clear to Ausculation Bilateral, NORMAL BREATHING PATTERN - Cardiovascular Exam Cardiovascular Exam: +S1, +S2 - GI/Abdominal Exam GI & Abdominal Exam: Soft, Normal Bowel Sounds. absent: Bruit, Distended, Firm , Guarding, Rigid, Organomegaly, Rebound - Rectal Exam Rectal Exam: NORMAL INSPECTION - Extremities Exam Extremities Exam: Full ROM - Neurological Exam Neurological Exam: Alert, Awake, Oriented x3
--- NOTE | 2017-07-15 16:39 | CARD ---
APPROVED REPORT EKG Measurement Heart [id number] <Conclusion> Normal sinus rhythm Normal ECG
--- NOTE | 2017-07-15 16:41 | CP.PCM.DIS ---
Provider - Provider Date of Admission: 07/14/17 04:15 Attending physician: Jen Mathias MD Primary care physician: [facility]. Time Spent in preparation of Discharge (in minutes): 30 Diagnosis - Discharge Diagnosis (1) Abdominal pain Status: Acute Comment: -F/U with GI specialitst, Dr Franklin, on 07/19/17. Hospital Course - Lab Results Lab Results: Most Recent Lab Values WBC 4.5 K/uL (4.8-10.8) L 07/15/17 07:10 RBC 5.51 Mil/uL (4.40-5.90) 07/15/17 07:10 Hgb 15.2 g/dL (12.0-18.0) 07/15/17 07:10 Hct 45.0 % (35.0-51.0) 07/15/17 07:10 MCV 81.6 fl (80.0-94.0) 07/15/17 07:10 MCH 27.5 pg (27.0-31.0) 07/15/17 07:10 MCHC 33.7 g/dL (33.0-37.0) 07/15/17 07:10 RDW 13.5 % (11.5-14.5) 07/15/17 07:10 Plt Count 97 K/uL (130-400) L 07/15/17 07:10 MPV 12.3 fl (7.2-11.7) H 07/14/17 04:07 Neut % (Auto) 65.8 % (50.0-75.0) 07/14/17 04:07 Lymph % (Auto) 23.0 % (20.0-40.0) 07/14/17 04:07 [place] % (Auto) 7.7 % (0.0-10.0) 07/14/17 04:07 Eos % (Auto) 2.9 % (0.0-4.0) 07/14/17 04:07 Baso % (Auto) 0.6 % (0.0-2.0) 07/14/17 04:07 Neut # (Auto) 4.3 K/uL (1.8-7.0) 07/14/17 04:07 Lymph # (Auto) 1.5 K/uL (1.0-4.3) 07/14/17 04:07 [place] # (Auto) 0.5 K/uL (0.0-0.8) 07/14/17 04:07 Eos # (Auto) 0.2 K/uL (0.0-0.7) 07/14/17 04:07 Baso # (Auto) 0.0 K/uL (0.0-0.2) 07/14/17 04:07 Sodium 138 mmol/l (132-148) 07/15/17 07:10 Potassium 3.8 MMOL/L (3.6-5.0) 07/15/17 07:10 Chloride 97 mmol/L (98-107) L 07/15/17 07:10 Carbon Dioxide 27 mmol/L (22-30) 07/15/17 07:10 Anion Gap 18 (10-20) 07/15/17 07:10 BUN 14 mg/dl (9-20) 07/15/17 07:10 Creatinine 0.9 mg/dl (0.8-1.5) 07/15/17 07:10 Est GFR ( Amer) > 60 07/15/17 07:10 Est GFR (Non-Af Amer) > 60 07/15/17 07:10 Random Glucose 98 mg/dL (75-110) 07/15/17 07:10 Calcium 9.5 mg/dL (8.4-10.2) 07/15/17 07:10 Total Bilirubin 2.2 mg/dl (0.2-1.3) H 07/15/17 07:10 Direct Bilirubin 0.3 mg/ml (0.0-0.4) 07/15/17 07:10 AST 23 U/L (17-59) 07/15/17 07:10 ALT 42 U/L (21-72) 07/15/17 07:10 Alkaline Phosphatase 65 U/L (38-126) 07/15/17 07:10 Total Protein 7.1 G/DL (6.3-8.2) 07/15/17 07:10 Albumin 4.3 g/dL (3.5-5.0) 07/15/17 07:10 Globulin 2.8 gm/dL (2.2-3.9) 07/15/17 07:10 Albumin/Globulin Ratio 1.6 (1.0-2.1) 07/15/17 07:10 Lipase 160 U/L (23-300) 07/14/17 04:07 TSH 3rd Generation 2.25 mIU/ML (0.46-4.68) 07/14/17 04:24 Urine Color Yellow (YELLOW) 07/14/17 04:24 Urine Clarity Clear (Clear) 07/14/17 04:24 Urine pH 6.0 (5.0-8.0) 07/14/17 04:24 Ur Specific [place] 1.009 (1.003-1.030) 07/14/17 04:24 Urine Protein Negative mg/dL (NEGATIVE) 07/14/17 04:24 Urine Glucose (UA) Neg mg/dL (Normal) 07/14/17 04:24 Urine Ketones Negative mg/dL (NEGATIVE) 07/14/17 04:24 Urine Blood Negative (NEGATIVE) 07/14/17 04:24 Urine Nitrate Negative (NEGATIVE) 07/14/17 04:24 Urine Bilirubin Negative (NEGATIVE) 07/14/17 04:24 Urine Urobilinogen 0.2-1.0 mg/dL (0.2-1.0) 07/14/17 04:24 Ur Leukocyte Esterase Neg [place]/uL (Negative) 07/14/17 04:24 Urine RBC (Auto) 2 /hpf (0-3) 07/14/17 04:24 Urine Microscopic WBC < 1 /hpf (0-5) 07/14/17 04:24 HIV-1 Ab Rapid Screen Non reactive (NON REAC) 07/14/17 04:24 - Hospital Course Hospital Course: 57 y/o M with a PMHx diverticulitis, cholelithiasis, hypertension, asthma, hyperlipidemia, gastritis and chronic back pain was admitted for evaluation and management of persistent abdominal pain and abrupt weight loss. Pt was diagnosed with cholelithiasis on 04/2017, and since then pt started a very strict low-fat diet. Pt was given Pantoprazole, Bentyl and Simethicone. ---Colonoscopy 06/2014: diverticulosis and internal hemorroids (by Dr Franklin) ---EGD 11/2016 Gastritis unspecified (by Dr Hicks) ---H.Pylori 09/2016-negative. ---US Abdomen 04/2017 showed cholelithasis ---CT Abdomen 06/09/2017 showed tiny calcifications fundus gallbladder vs gallbladder wall calcification. ---Us Abdomen 07/10/2017: no cholelithiasis. Pt afebrile, tolerating PO, educated on the need for outpatient work-up. Pt to be evaluated by GI specialist, Dr Franklin on 07/19/17. Will f/u with PMD within 1 week. Pt was intructed to continue soft bland diet. ---->NO discontinuation of medications during this admission. Simethicone added. - Date & Time of H&P Date of H&P: 07/14/17 Time of H&P: 06:07 Discharge Exam - Head Exam Head Exam: NORMAL INSPECTION - Eye Exam Eye Exam: EOMI, Normal appearance - ENT Exam ENT Exam: Mucous Membranes Moist - Neck Exam Neck exam: Full Rom - Respiratory Exam Respiratory Exam: Clear to PA & Lateral, NORMAL BREATHING PATTERN, UNREMARKABLE - Cardiovascular Exam Cardiovascular Exam: REGULAR RHYTHM, +S1, +S2 - GI/Abdominal Exam GI & Abdominal Exam: Normal Bowel Sounds, Soft, Unremarkable. absent: Distended , Guarding, Tenderness - Extremities Exam Extremities exam: full ROM - Neurological Exam Neurological exam: Alert, Normal Gait, Oriented x3 Discharge Plan - Discharge Medications Prescriptions: Simethicone [Mylicon Chew Tab] 80 mg PO PCHS PRN #30 chew PRN Reason: Flatulence - Follow Up Plan Condition: FAIR Disposition: HOME/ ROUTINE Instructions: Acute Abdomen (Belly Pain), Adult (DC), Acute Abdominal Pain (DC) , Acute Abdominal Pain (GEN) Additional Instructions: -follow up with primary MD 1 week. -Please f/u with GI specialist, Dr Franklin, on SaturdayJuly 19. -Keep a bland-soft, low-fat, well-balanced diet. Referrals: [facility] [Outside] Jen Mathias MD [Family Provider] - Ishmael Franklin MD [Staff Provider] -
== END 2017-07-15 14:27 | disposition home or self-care (01) ==
LOC: H.ER 03:15 → INTOOBSV 04:15 → H.ERHOLD 04:15 → H.MEDSURG1 06:49
PROVIDERS: ADMIT Family Medicine Geriatric Medicine; ATTEND Family Medicine Geriatric Medicine
DX: R10.9 Unspecified abdominal pain (principal); J45.20 Mild intermittent asthma, uncomplicated; D69.6 Thrombocytopenia, unspecified; E78.00 Pure hypercholesterolemia, unspecified; G89.29 Other chronic pain; I10 Essential (primary) hypertension; E78.5 Hyperlipidemia, unspecified; R64 Cachexia; F41.9 Anxiety disorder, unspecified; M19.90 Unspecified osteoarthritis, unspecified site; K29.70 Gastritis, unspecified, without bleeding; J44.9 Chronic obstructive pulmonary disease, unspecified; N40.0 Benign prostatic hyperplasia without lower urinary tract symptoms; K59.00 Constipation, unspecified; R63.4 Abnormal weight loss; Z68.25 Body mass index [BMI] 25.0-25.9, adult
CPT/HCPCS: 36415; 80053; 81003; 82103; 82247; 82248; 83690; 84443; 85025; 85027; 87390; 93005; 96360; 99284; G0378; J7040

== ENCOUNTER 2017-09-11 15:53 | Emergency (ER) | payer MEDICAID ==
[2017-09-11 15:53] VITALS: BMI 26.4
[2017-09-11 16:00] VITALS: BP 140/85; TEMP 98.2; O2SAT 98
[2017-09-11 16:05] VITALS: PULSE 66; RESP 18
[2017-09-11] MEDS ORDERED: Sodium Chloride 0.9% 1,000 ML IV STA (16:22)
--- NOTE | 2017-09-11 17:00 | ED PDOC ---
HPI: Abdomen Time Seen by Provider: 09/11/17 16:08 Chief Complaint (Nursing): Abdominal Pain Chief Complaint (Provider): Abdominal pain History Per: Patient History/Exam Limitations: no limitations Onset/Duration Of Symptoms: Days (3) Additional Complaint(s): Pt snet from [facility] for evaluation of intermittent RUQ pain X 2 days, constant, no radiation, associated with nausea, no vomiting. Pt with h/o "gallbladder sludge ". Denies fever, CP, SOB, constipation, diarrhea, symptoms. Pt on chronic Percocet and Morphine PO for back pain. Past Medical History Reviewed: Nursing Documentation, Vital Signs Vital Signs: Last Vital Signs Temp 98.2 F 09/11/17 15:58 Pulse 66 09/11/17 15:58 Resp 18 09/11/17 15:58 BP 140/85 09/11/17 15:58 Pulse Ox 98 09/11/17 19:59 - Medical History PMH: Anxiety, Arthritis, Asthma, Back Problems, Benign Prostatic Hyperplasia, COPD, Diverticulitis, Gastritis, Hiatal Hernia, HTN, Hypercholesterolemia, Chronic Pain (Chronic back pain due to spinal stenosis) Denies: CHF, HIV, Chronic Kidney Disease - Surgical History Surgical History: Endoscopy, Hernia Repair - Family History Family History: States: [place], CAD, Diabetes, Hypertension - Social History Current smoker - smoking cessation education provided: No Alcohol: None - Immunization History Hx Tetanus Toxoid Vaccination: No Hx Influenza Vaccination: No Hx Pneumococcal Vaccination: No - Home Medications Home Medications: Ambulatory Orders Medication Instructions Recorded Metoprolol Tartrate 25 mg PO BID 03/15/15 Lisinopril [Zestril] 40 mg PO DAILY 11/09/15 Acetaminophen/Oxycodone Hydr 1 tab PO TID 01/16/17 [Percocet 10/325 mg Tab] Albuterol HFA [Ventolin HFA 90 2 puff IH BID PRN 01/16/17 mcg/actuation (8 g)] Atorvastatin [Lipitor] 40 mg PO DAILY 01/16/17 Fluticasone/Salmeterol 500/50 2 puff INH BID 01/16/17 [Advair Diskus 500/50] Morphine Sulfate [Ms Contin] 30 mg PO BID 01/16/17 Pantoprazole Sodium [Protonix] 40 mg PO DAILY 05/10/17 hydroCHLOROthiazide [Hydrodiuril] 25 mg PO DAILY 05/10/17 Simethicone [Mylicon Chew Tab] 80 mg PO PCHS PRN #30 chew 07/15/17 Ondansetron ODT [Zofran ODT] 4 mg PO Q8H PRN #20 odt 09/11/17 - Allergies Allergies/Adverse Reactions: Allergies Allergy/AdvReac Type Severity Reaction Status Date / Time No Known Allergies Allergy Verified 06/09/17 20:52 Review of Systems Constitutional: Negative for: Fever, Chills Cardiovascular: Negative for: Chest Pain, Palpitations Respiratory: Negative for: Cough, Shortness of Breath Gastrointestinal: Positive for: Nausea, Abdominal Pain. Negative for: Vomiting , Diarrhea, Hematochezia, Hematemesis Genitourinary Male: Negative for: Dysuria, Hematuria Musculoskeletal: Negative for: Back Pain Skin: Negative for: Rash, Lesions Neurological: Negative for: Headache Physical Exam - Reviewed Nursing Documentation Reviewed: Yes Vital Signs Reviewed: Yes - Physical Exam Appears: Positive for: Well, No Acute Distress Skin: Positive for: Normal Color, Warm, Dry Eye Exam: Positive for: Normal appearance, EOMI, PERRL Cardiovascular/Chest: Positive for: Regular Rate, Rhythm Respiratory: Positive for: Normal Breath Sounds Gastrointestinal/Abdominal: Positive for: Normal Exam, Bowel Sounds, Soft. Negative for: Tenderness, Guarding, Rebound Back: Positive for: Normal Inspection. Negative for: L CVA Tenderness Extremity: Positive for: Normal ROM Neurologic/Psych: Positive for: Alert, Oriented - Laboratory Results Result Diagrams: 09/11/17 16:40 09/11/17 17:44 - ECG O2 Sat by Pulse Oximetry: 98 Medical Decision Making Medical Decision Makin yo male with acute on chronic RUQ pain. - labs - EKG - RUQ ultrasound - IVF - Zofran Pt evaluated by FP resident (Dr. Lay), discharge home to follow-up with Dr. Lord on 09/17/17 as scheduled. Disposition - Clinical Impression Clinical Impression: Abdominal pain - Disposition Referrals: [facility] [Outside] Ishmael Lord MD [Staff Provider] - Disposition: Routine/Home Disposition Time: 19:56 Condition: IMPROVED Additional Instructions: FOLLOW-UP WITH DR. LORD ON 09/17/17 SCHEDULED. Prescriptions: Ondansetron ODT [Zofran ODT] 4 mg PO Q8H PRN #20 odt PRN Reason: Nausea/Vomiting Instructions: Acute Abdomen (Belly Pain) Forms: [facility] (Guinean)
[2017-09-11 17:12] LABS: BASO % 0.7 % (0.0-2.0); EOS # 0.2 K/uL (0.0-0.7); EOS % 2.8 % (0.0-4.0); HEMOGLOBIN 14.1 g/dL (12.0-18.0); LYMPH # 1.1 K/uL (1.0-4.3); LYMPH % 20.1 % (20.0-40.0); MEAN CELL VOLUME 82.2 fl (80.0-94.0); MEAN CORPUSCULAR HEMOGLOBIN 27.8 pg (27.0-31.0); MEAN CORPUSCULAR HGB CONC 33.8 g/dL (33.0-37.0); MONO # 0.5 K/uL (0.0-0.8); NEUT # 3.7 K/uL (1.8-7.0); NEUT % 67.4 % (50.0-75.0); NRBC % 0.1 % (0.0-0.0); RBC 5.06 Mil/uL (4.40-5.90); RED CELL DISTRIBUTION WIDTH 13.1 % (11.5-14.5); WHITE BLOOD COUNT 5.5 K/uL (4.8-10.8)
[2017-09-11 17:19] LABS: ALB/GLOB RATIO 1.5 (1.0-2.1); ALBUMIN 4.8 g/dL (3.5-5.0); ALT/SGPT 13 U/L (21-72); AST/SGOT 53 U/L (17-59); BLOOD UREA NITROGEN 16 mg/dl (9-20); GFR AFRICAN-AMERICAN > 60; GFR NON-AFRICAN AMERICAN > 60; LIPASE 129 U/L (23-300)
[2017-09-11 17:20] LABS: URINE BILIRUBIN NEGATIVE (NEGATIVE); URINE BLOOD NEGATIVE (NEGATIVE); URINE CLARITY CLEAR (Clear); URINE COLOR COLORLESS (YELLOW); URINE GLUCOSE (UA) NEG (Normal); URINE LEUKOCYTE ESTERASE NEG Leu/uL (Negative); URINE PROTEIN NEGATIVE (NEGATIVE); URINE UROBILINOGEN 0.2-1.0 mg/dL (0.2-1.0)
--- NOTE | 2017-09-11 17:35 | US ---
Date of service: 09/11/2017 HISTORY: RUQ pain COMPARISON: Comparison made with prior study dated 07/10/2017 TECHNIQUE: Sonographic evaluation of the right upper quadrant of the abdomen. FINDINGS: LIVER: Measures 15.7 cm in length. Smooth contour and normal echogenicity of the liver parenchyma. No mass. No intrahepatic bile duct dilatation. GALLBLADDER: There is a small approximately 5.7 mm presumed gallstone along that appears to be adherent to the wall of the gallbladder. There is trace amount of intraluminal gallbladder sludge as well. COMMON BILE DUCT: Measures 3.8 mm. No stones. No dilatation. PANCREAS: Unremarkable as visualized. No mass. No ductal dilatation. RIGHT KIDNEY: Measures 10.9 x 6.3 x 6.4 cm in length. Normal echogenicity. No calculus, mass, or hydronephrosis. . There is a small cyst lower pole right kidney and measures approximately 1.5 x 1.4 x 1.4 cm AORTA: No aneurysmal dilatation. IVC: Unremarkable. OTHER FINDINGS: None . IMPRESSION: Suspect small adherent gallbladder calculus and trace amount of intraluminal gallbladder sludge Small cyst lower pole right kidney
[2017-09-11 17:49] LABS: PROTHROMBIN TIME 10.8 Seconds (9.8-13.1)
--- NOTE | 2017-09-11 21:24 | CP.PCM.CON ---
History of Present Illness - History of Present Illness History of Present Illness: I was called by ER attending to evaluate a 48 y/o male with h/o sludge gallbladder under GI treatment, who was sent BY PCP at [facility] to ED for evaluation of RUQ abdominal pain, associated with nausea without any vomiting episode. At the time of ED evaluation patient was pain free, and denies any complains. Patient states he has been getting an intermittent RUQ abd pain for around 6 months, however has been more frequent than usual for the last few days, and sometimes associated with nausea, denies vomiting,, fevers, chills, diarrheas, or urinary symptoms. Patient has been f/u with GI specialist, Dr. Franklin, who started Ursodiol, and has an oncoming appointment next week on 09/17/[address] Franklin. Review of Systems - Review of Systems All systems: reviewed and no additional remarkable complaints except (as per HPI ) Past Patient History - Infectious Disease Hx of Infectious Diseases: None - Tetanus Immunizations Tetanus Immunization: Unknown - Past Medical History & Family History Past Medical History?: Yes - Past Social History Alcohol: None - CARDIAC Hx Congestive Heart Failure: No Hx Hypercholesterolemia: Yes Hx Hypertension: Yes - PULMONARY Hx Asthma: Yes Hx Chronic Obstructive Pulmonary Disease (COPD): Yes - NEUROLOGICAL Hx Neurological Disorder: No Other/Comment: NUMBERNESS .TINGLING LEFT ARM - HEENT Hx HEENT Problems: No Other/Comment: 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 - RENAL Hx Chronic Kidney Disease: No - ENDOCRINE/METABOLIC Hx Endocrine Disorders: No Other/Comment: HYPOGLYCEMIA - HEMATOLOGICAL/ONCOLOGICAL Hx Human Immunodeficiency Virus (HIV): No - INTEGUMENTARY Hx Dermatological Problems: No - MUSCULOSKELETAL/RHEUMATOLOGICAL Hx Arthritis: Yes - GASTROINTESTINAL Hx Diverticulitis: Yes Hx Gastritis: Yes - GENITOURINARY/GYNECOLOGICAL Hx Genitourinary Disorders: No Hx Prostate Problems: Yes - PSYCHIATRIC Hx Anxiety: Yes - ANESTHESIA Hx Anesthesia: Yes Hx Anesthesia Reactions: No Hx Malignant Hyperthermia: No Meds Home Medications: Home Medication List Medication Instructions Recorded Confirmed Type Ondansetron ODT [Zofran ODT] 4 mg PO Q8H PRN #20 odt 09/11/17 Rx Allergies/Adverse Reactions: Allergies Allergy/AdvReac Type Severity Reaction Status Date / Time No Known Allergies Allergy Verified 06/09/17 20:52 Physical Exam - Constitutional Appears: Non-toxic, No Acute Distress - Head Exam Head Exam: ATRAUMATIC, NORMOCEPHALIC - Eye Exam Eye Exam: Normal appearance. absent: Conjunctival injection, Scleral icterus - ENT Exam ENT Exam: Mucous Membranes Moist - Respiratory Exam Respiratory Exam: Clear to Auscultation Bilateral, NORMAL BREATHING PATTERN. absent: Rales, Rhonchi, Wheezes, Respiratory Distress, Stridor - Cardiovascular Exam Cardiovascular Exam: REGULAR RHYTHM, +S1, +S2 - GI/Abdominal Exam GI & Abdominal Exam: Normal Bowel Sounds, Soft. absent: Distended, Guarding, Rebound, Rigid, Tenderness - Extremities Exam Extremities exam: Positive for: normal inspection. Negative for: calf tenderness, pedal edema - Back Exam Back exam: NORMAL INSPECTION. absent: CVA tenderness (L), CVA tenderness (R) - Neurological Exam Neurological exam: Alert, Oriented x3 - Skin Skin Exam: Dry, Intact, Normal Color, Warm Results - Vital Signs Recent Vital Signs: Last Vital Signs Temp 98.2 F 09/11/17 15:58 Pulse 66 09/11/17 15:58 Resp 18 09/11/17 15:58 BP 140/85 09/11/17 15:58 Pulse Ox 98 09/11/17 19:59 - Labs Result Diagrams: 09/11/17 16:40 09/11/17 17:44 Labs: Laboratory Results - last 24 hr 09/11/17 09/11/17 09/11/17 16:40 16:40 16:40 WBC 5.5 RBC 5.06 Hgb 14.1 Hct 41.6 MCV 82.2 MCH 27.8 MCHC 33.8 RDW 13.1 Plt Count 93 L MPV 12.0 H Neut % (Auto) 67.4 Lymph % (Auto) 20.1 [place] % (Auto) 9.0 Eos % (Auto) 2.8 Baso % (Auto) 0.7 Neut # (Auto) 3.7 Lymph # (Auto) 1.1 [place] # (Auto) 0.5 Eos # (Auto) 0.2 Baso # (Auto) 0.0 PT 10.8 INR 1.0 APTT 30.0 Sodium 133 Potassium 6.2 H* D Chloride 98 Carbon Dioxide 24 Anion Gap 17 BUN 16 Creatinine 0.8 Est GFR ( Amer) > 60 Est GFR (Non-Af Amer) > 60 Random Glucose 93 Calcium 9.0 Total Bilirubin 2.1 H AST 53 ALT 13 L D Alkaline Phosphatase 63 Total Protein 7.9 Albumin 4.8 Globulin 3.1 Albumin/Globulin Ratio 1.5 Lipase 129 Urine Color Urine Clarity Urine pH Ur Specific [place] Urine Protein Urine Glucose (UA) Urine Ketones Urine Blood Urine Nitrate Urine Bilirubin Urine Urobilinogen Ur Leukocyte Esterase Urine RBC (Auto) Urine Microscopic WBC 09/11/17 09/11/17 16:40 17:44 WBC RBC Hgb Hct MCV MCH MCHC RDW Plt Count MPV Neut % (Auto) Lymph % (Auto) [place] % (Auto) Eos % (Auto) Baso % (Auto) Neut # (Auto) Lymph # (Auto) [place] # (Auto) Eos # (Auto) Baso # (Auto) PT INR APTT Sodium Potassium 4.1 Chloride Carbon Dioxide Anion Gap BUN Creatinine Est GFR ( Amer) Est GFR (Non-Af Amer) Random Glucose Calcium Total Bilirubin AST ALT Alkaline Phosphatase Total Protein Albumin Globulin Albumin/Globulin Ratio Lipase Urine Color Colorless Urine Clarity Clear Urine pH 6.0 Ur Specific [place] < 1.005 Urine Protein Negative Urine Glucose (UA) Neg Urine Ketones Negative Urine Blood Negative Urine Nitrate Negative Urine Bilirubin Negative Urine Urobilinogen 0.2-1.0 Ur Leukocyte Esterase Neg Urine RBC (Auto) 1 Urine Microscopic WBC < 1 Assessment & Plan - Assessment and Plan (Free Text) Plan: PLan: Asymptomatic at the time of ER evaluation Physical exam: normal, with abdomen soft, nondistended, and non tender to palpation. VS: WNL, afebrile Labs: no leukocytosis, mild elevated total bili:2.1, normal AST/ALT, alkaline phost UA: normal Abdominal US: reported as suspect small gallbladder stone, and trace of intraluminal gallbladder sludge. Findings discussed with ED provider, Dr. Mckeon, and with patient. Because patient is asymptomatic, with normal physical exam, and no evidence of acute cholecystitis or biliary ducts reported in US, he agrees to be DC home from ER, with close f/u by PMD, and GI specialist. ER precautions given I contacted PMD at [facility], Dr. Mathew, and agree with current plan - Date & Time Date: 09/11/17 Time: 19:00
--- NOTE | 2017-09-12 16:34 | CARD ---
APPROVED REPORT Date of service: 09/11/2017 EKG Measurement Heart [id number] <Conclusion> Sinus bradycardia Otherwise normal ECG
== END 2017-09-11 20:18 | disposition home or self-care (01) ==
LOC: H.ER 15:53
DX: R10.9 Unspecified abdominal pain (principal); I10 Essential (primary) hypertension; J44.9 Chronic obstructive pulmonary disease, unspecified; N40.0 Benign prostatic hyperplasia without lower urinary tract symptoms; Z82.49 Family history of ischemic heart disease and other diseases of the circulatory system; E78.00 Pure hypercholesterolemia, unspecified
CPT/HCPCS: 76705; 80053; 81003; 83690; 84132; 85025; 85610; 85730; 93005; 96360; 96361; 99283; J7030

== ENCOUNTER 2017-09-24 10:08 | Day surgery (SDC) | payer MEDICAID ==
[2017-09-24 10:45] VITALS: RESP 18
[2017-09-24 10:56] VITALS: BMI 26.0
[2017-09-24] MEDS ORDERED: Midazolam 2 MG/2 ML VIAL ONE (11:45)
[2017-09-24] MEDS ORDERED: methylPREDNISolone Depo 80 mg/ml Inj ONE (11:48)
[2017-09-24] MEDS ORDERED: Lidocaine 2% MPF (5 ml) Inj ONE (11:50)
[2017-09-24] MEDS ORDERED: Iohexol 300 10 ML ONE (11:51)
[2017-09-24] MEDS ORDERED: methylPREDNISolone Depo 80 mg/ml Inj IM ONE (11:57)
[2017-09-24] MEDS ORDERED: Bupivacaine 0.25% Inj(30mL) IJ ONE (11:57)
[2017-09-24] MEDS ORDERED: Iohexol 300 10 ML IJ ONE (11:57)
[2017-09-24] MEDS ORDERED: Lidocaine 2% MPF (5 ml) Inj INJ ONE (11:57)
[2017-09-24] MEDS ORDERED: Lactated Ringer's 1,000 ML IV SCH (12:30)
--- NOTE | 2017-09-24 12:37 | RAD ---
Date of service: 09/24/2017 PROCEDURE: Intraoperative Fluoroscopy. HISTORY: PAIN FINDINGS: Fluoroscopic assistance was provided for right-sided inferior cervical facet joint injections.. Please refer to the operative report from LANIE Isbell. 18.8 seconds of fluoroscopy time was utilized with a cumulative radiation dose of 2.64 mGy.
[2017-09-24] MEDS ORDERED: Lactated Ringer's 1,000 ML IV ONE (12:40)
[2017-09-24] MEDS ORDERED: oxyCODONE 10 mg Immediate Release Tab PO PRN (12:53)
[2017-09-24 13:52] VITALS: O2SAT 98
[2017-09-24] MEDS ORDERED: oxyCODONE 10 mg Immediate Release Tab PO ONE (14:18)
[2017-09-24 14:50] VITALS: BP 138/89; PULSE 81; TEMP 98
--- NOTE | 2017-09-25 00:21 | OP ---
PROCEDURE DATE: 09/24/2017 PREOPERATIVE DIAGNOSIS: Cervical facet syndrome. POSTOPERATIVE DIAGNOSIS: Cervical facet syndrome. PROCEDURE: Left C4, C5, and C6 medial branch nerve block. ANESTHESIOLOGIST: Ben Hyatt MD SURGEON: Shakira Seay MD ANESTHESIA TYPE: Monitored anesthesia care. COMPLICATIONS: None. SPECIMEN: None. DESCRIPTION OF PROCEDURE: As follows. After we had discussion of the procedure with the patient including its risks, benefits, alternatives, outcome data, possibility of no effect or increased pain, the patient consented to the procedure. He denies any recent infection, bleeding tendencies, or being on anticoagulants. Decision was then made to proceed to the OR. The patient was placed on the fluoroscopy table in a prone position with two pillows underneath his abdomen. The head and neck was placed in the head positioner. The neck was prepped and draped in the usual sterile fashion, and a sterile technique was adhered during the entire procedure. The C4, C5, and C6 vertebral levels were first identified in the anteroposterior view. The medial branch nerves are located at the lateral facet border on the left side at approximately in the mid point of the vertebral height. The skin overlying the three above target areas were then infiltrated with 1% lidocaine using 25-gauge needle. Subsequently, a 25-gauge 3.5-inch spinal needle was then incrementally advanced under fluoroscopic guidance until the tip of needle made bony contact with all three target areas. After satisfactory positioning of all three needles, approximately 0.5 mL of Isovue contrast was injected to rule out intravenous uptake. After doing so, approximately 2 mL of 0.25% Marcaine and Depo-Medrol mixture was injected. The needle was then removed. The patient's neck was cleaned and dried, and bandages were applied. The patient was then transferred to recovery area in good condition without any signs of PLEAT TAPER toxicity or any neurological deficit. He will be followed in our office in approximately two to four weeks. Shakira Seay MD
== END 2017-09-24 14:50 | disposition home or self-care (01) ==
LOC: H.OPSURG 10:08
PROVIDERS: ATTEND Anesthesiology
DX: M46.92 Unspecified inflammatory spondylopathy, cervical region (principal); I10 Essential (primary) hypertension; J45.909 Unspecified asthma, uncomplicated
CPT/HCPCS: 64490; 64491; J1040; J2250; J3010; J7120; Q9967

== ENCOUNTER 2017-12-20 09:19 | Day surgery (SDC) | payer MEDICAID ==
[2017-11-11 11:55] VITALS: BMI 26.0
[2017-12-20] MEDS ORDERED: MethylPREDNISolone Depo 40 mg/ml Inj ONE (09:38)
[2017-12-20] MEDS ORDERED: Iohexol 300 10 ML ONE (09:38)
[2017-12-20] MEDS ORDERED: Lidocaine 1% Inj (20ml) ONE ×2 (09:39→11:47)
[2017-12-20] MEDS ORDERED: Bupivacaine HCl 0.25% PF (30 ml) Inj ONE (09:39)
[2017-12-20] MEDS ORDERED: Midazolam 2 MG/2 ML VIAL ONE ×2 (09:45→11:46)
[2017-12-20] MEDS ORDERED: Lactated Ringer's 1,000 ML IV ONE (10:31)
[2017-12-20 11:37] VITALS: RESP 14; TEMP 98.1
[2017-12-20] MEDS ORDERED: Etomidate 20 mg/10ml Inj IV ONE (11:45)
[2017-12-20] MEDS ORDERED: Labetalol 5mg/ml (4ml) ONE (11:46)
[2017-12-20] MEDS ORDERED: Propofol 10 mg/ml Inj (20 ML) ONE (11:47)
[2017-12-20] MEDS ORDERED: Esmolol 100 mg/10ml Inj IV ONE (11:48)
[2017-12-20 12:07] VITALS: BP 112/73; PULSE 75; O2SAT 96
--- NOTE | 2017-12-20 14:46 | RAD ---
Date of service: 12/20/2017 PROCEDURE: Intraoperative Fluoroscopy. HISTORY: PAIN MANAGEMENT FINDINGS: Fluoroscopic assistance was provided for pain management. Please refer to the operative report from LANIE Isbell. Total fluoroscopic time (continuous mode) utilized during the procedure 21.2 (seconds).
--- NOTE | 2017-12-20 22:08 | OP ---
PROCEDURE DATE: 12/20/2017 PREOPERATIVE DIAGNOSIS: Left shoulder osteoarthritis. POSTOPERATIVE DIAGNOSIS: Left shoulder osteoarthritis. PROCEDURE: Left shoulder intra-articular steroid injection under fluoroscopic guidance. ANESTHESIOLOGIST: Willam Terrazas MD SURGEON: Shakira Seay MD TYPE OF ANESTHESIA: Monitored anesthesia care. COMPLICATIONS: None. SPECIMEN: None. DESCRIPTION OF PROCEDURE: As follows: After we had discussion of the procedure with the patient including its risks, benefits, alternatives, outcome data, and possibility of no effect or increased pain, the patient consented to the procedure. He denied any recent infection, bleeding tendencies, or being on anticoagulants. A decision was then made to proceed to the OR. The patient was placed on the fluoroscopy table in a prone position with two pillows underneath his chest. The left arm was placed parallel to his torso. The left shoulder was then prepped and draped in the usual sterile fashion, and a sterile technique was adhered to during the entire procedure. The left shoulder was then visualized in the posteroanterior view. The target is at 2 o'clock position of the humeral head. The skin overlying this area was then infiltrated with 1% lidocaine using a 25-gauge needle. Subsequently, a 22-gauge 3.5-inch spinal needle was incrementally advanced under fluoroscopic guidance until the tip of the needle made bony contact with target areas. After satisfactory positioning of the needle, approximately 1 mL of contrast was injected, which was seen spreading into the capsule. At this point, approximately 5 mL of 0.25% Marcaine and Depo-Medrol mixture was injected. The needle was then removed. The patient's shoulder was cleaned and dried and bandages were applied. The patient was then transferred to the recovery area in good condition without any signs of SOFT CRAB SHEDDER toxicity or any neurovascular deficit. He will be following in the office in approximately two to four weeks. Shakira Seay MD
== END 2017-12-20 12:18 | disposition home or self-care (01) ==
LOC: H.OPSURG 09:19
PROVIDERS: ATTEND Anesthesiology
DX: M19.012 Primary osteoarthritis, left shoulder (principal); J45.909 Unspecified asthma, uncomplicated; E11.9 Type 2 diabetes mellitus without complications; E78.5 Hyperlipidemia, unspecified; I10 Essential (primary) hypertension; K44.9 Diaphragmatic hernia without obstruction or gangrene
CPT/HCPCS: 20610; J1030; J2250; J3010; J7120; Q9967

== ENCOUNTER 2017-12-31 10:33 | Emergency (ER) | payer MEDICAID ==
[2017-12-31 10:34] VITALS: BMI 26.0
[2017-12-31 10:37] VITALS: O2SAT 99
[2017-12-31] MEDS ORDERED: Sodium Chloride 0.9% 1,000 ML IV STA ×2 (11:10→14:28)
[2017-12-31 11:22] LABS: BASO % 0.9 % (0.0-2.0); EOS # 0.1 K/uL (0.0-0.7); EOS % 3.1 % (0.0-4.0); HEMOGLOBIN 14.4 g/dL (12.0-18.0); LYMPH # 1.2 K/uL (1.0-4.3); MEAN CELL VOLUME 82.8 fl (80.0-94.0); MEAN CORPUSCULAR HEMOGLOBIN 27.5 pg (27.0-31.0); MEAN CORPUSCULAR HGB CONC 33.3 g/dL (33.0-37.0); MEAN PLATELET VOLUME 11.6 fl (7.2-11.7); MONO # 0.4 K/uL (0.0-0.8); MONO % 9.4 % (0.0-10.0); NEUT # 2.9 K/uL (1.8-7.0); NEUT % 61.6 % (50.0-75.0); NRBC % 0.1 % (0.0-0.0); RBC 5.22 Mil/uL (4.40-5.90); RED CELL DISTRIBUTION WIDTH 13.5 % (11.5-14.5); WHITE BLOOD COUNT 4.6 K/uL (4.8-10.8)
[2017-12-31 11:31] LABS: ALB/GLOB RATIO 1.5 (1.0-2.1); ALBUMIN 4.4 g/dL (3.5-5.0); ALT/SGPT 25 U/L (21-72); AST/SGOT 25 U/L (17-59); BLOOD UREA NITROGEN 19 mg/dl (9-20); CALCIUM 9.4 mg/dL (8.4-10.2); GFR NON-AFRICAN AMERICAN > 60; LIPASE 125 U/L (23-300)
--- NOTE | 2017-12-31 12:14 | ED PDOC ---
HPI: Abdomen Time Seen by Provider: 12/31/17 11:05 Chief Complaint (Nursing): Abdominal Pain Chief Complaint (Provider): abdominal pain, nausea, diarrhea History Per: Patient History/Exam Limitations: no limitations Location Of Pain/Discomfort: RUQ, RLQ Associated Symptoms: Nausea, Diarrhea (loose, watery), Other (Dizziness and weakness). denies: Fever, Urinary Symptoms Additional Complaint(s): 57 years old male with history of hypertension, high cholesterol, asthma and sludge in gallbladder presents to ER for evaluation of abdominal pain, nausea and loose, watery diarrhea starting last evening associated with dizziness and weakness. Patient reports pain is mostly right sided. He states his mother was recently admitted for C-Diff diarrhea and he is the primary hand patcher of her. Patient denies any fever, back pain or blood in stools. PMD: Ishmael Alex Past Medical History Reviewed: Historical Data, Nursing Documentation, Vital Signs Vital Signs: Last Vital Signs Temp 97.3 F L 12/31/17 10:36 Pulse 67 12/31/17 10:36 Resp 20 12/31/17 10:36 BP 137/92 H 12/31/17 10:36 Pulse Ox 99 12/31/17 10:36 - Medical History PMH: Anxiety, Arthritis, Asthma, Back Problems, Benign Prostatic Hyperplasia, COPD, Diverticulitis, Gastritis, Hiatal Hernia, HTN, Hypercholesterolemia, Chronic Pain (Chronic back pain due to spinal stenosis) Denies: CHF, HIV, Chronic Kidney Disease - Surgical History Surgical History: Endoscopy, Hernia Repair - Family History Family History: States: [place], CAD, Diabetes, Hypertension - Social History Current smoker - smoking cessation education provided: No Alcohol: None Drugs: Denies - Immunization History Hx Tetanus Toxoid Vaccination: No Hx Influenza Vaccination: No Hx Pneumococcal Vaccination: No - Home Medications Home Medications: Ambulatory Orders Medication Instructions Recorded Metoprolol Tartrate 25 mg PO BID 03/15/15 Lisinopril [Zestril] 40 mg PO DAILY 11/09/15 Acetaminophen/Oxycodone Hydr 1 tab PO TID 01/16/17 [Percocet 10/325 mg Tab] Albuterol HFA [Ventolin HFA 90 2 puff IH BID PRN 01/16/17 mcg/actuation (8 g)] Atorvastatin [Lipitor] 40 mg PO DAILY 11/15/17 Fluticasone/Salmeterol 500/50 2 puff INH BID 01/16/17 [Advair Diskus 500/50] Morphine Sulfate [Ms Contin] 30 mg PO BID 01/16/17 Pantoprazole Sodium [Protonix] 40 mg PO DAILY 05/10/17 hydroCHLOROthiazide [Hydrodiuril] 25 mg PO DAILY 05/10/17 Simethicone [Mylicon Chew Tab] 80 mg PO PCHS PRN #30 chew 07/15/17 Ondansetron ODT [Zofran ODT] 4 mg PO Q8H PRN #20 odt 09/11/17 Aspirin [Aspirin EC] 325 mg PO PRN PRN 12/20/17 Dicyclomine [Bentyl] 10 mg PO QID PRN #10 cap 12/31/17 Ondansetron ODT [Zofran ODT] 4 mg PO Q6 PRN #10 odt 12/31/17 Vancomycin [Vancocin (ORAL OR 125 mg PO Q6 10 Days soln 12/31/17 RECTAL USE)] - Allergies Allergies/Adverse Reactions: Allergies Allergy/AdvReac Type Severity Reaction Status Date / Time No Known Allergies Allergy Verified 12/20/17 09:55 Review of Systems ROS Statement: Except As Marked, All Systems Reviewed And Found Negative Constitutional: Negative for: Fever Gastrointestinal: Positive for: Nausea, Abdominal Pain (mostly right sided), Diarrhea (loose, watery). Negative for: Hematochezia Musculoskeletal: Negative for: Back Pain Neurological: Positive for: Weakness, Dizziness Physical Exam - Reviewed Nursing Documentation Reviewed: Yes Vital Signs Reviewed: Yes - Physical Exam Appears: Positive for: Non-toxic, No Acute Distress Head Exam: Positive for: ATRAUMATIC, NORMOCEPHALIC Skin: Positive for: Normal Color, Warm, Dry Eye Exam: Positive for: Normal appearance Cardiovascular/Chest: Positive for: Regular Rate, Rhythm. Negative for: Murmur Respiratory: Positive for: Normal Breath Sounds. Negative for: Respiratory Distress Gastrointestinal/Abdominal: Positive for: Normal Exam, Soft, Tenderness (mild right sided) Back: Positive for: Normal Inspection. Negative for: L CVA Tenderness, R CVA Tenderness Extremity: Positive for: Normal ROM. Negative for: Pedal Edema, Swelling Neurologic/Psych: Positive for: Alert, Oriented (x3) - Laboratory Results Result Diagrams: 12/31/17 11:05 12/31/17 11:05 - ECG O2 Sat by Pulse Oximetry: 99 (RA) Pulse Ox Interpretation: Normal Medical Decision Making Medical Decision Making: Time: 1105 Initial plan: --Blood work to check up C-Diff toxin given exposure to family memebr --CT Abdomen/Pelvis labs reviewed WBC, chem unremarkable 220p awaiting CT result, no vomiting, hasnt yet moved bowels to collect CDiff sample. bentyl given for abd cramping. Given diarrhea and exposure to CDiff (mother)- give wait and see Rx for PO vancomycin and followup clinic updated 01/03- CDiff negative, saw patient visiting mother, he has not yet filled Rx vanco, told to cancel and not take for now, states diarrhea improved. caution being around mother, hand hygiene discussed. Scribe Attestation: Documented by Harika Goetz, acting as a scribe for Mart Wood MD. Provider Scribe Attestation: All medical record entries made by the Scribe were at my direction and per sonally dictated by me. I have reviewed the chart and agree that the record accurately reflects my personal performance of the history, physical exam, medical decision making, and the department course for this patient. I have also personally directed, reviewed, and agree with the discharge instructions and disposition. Disposition - Clinical Impression Clinical Impression: Abdominal pain, Diarrhea, Nausea - Patient ED Disposition Is Patient to be Admitted: No Counseled Patient/Family Regarding: Studies Performed, Diagnosis - Disposition Disposition: Routine/Home Disposition Time: 14:46 Condition: STABLE Additional Instructions: [id number] prescription for oral vancomycin given, start and continue if diarrhea persists. Return to ER for any worse pain, fever, blood in stool, weakness or any concern. Prescriptions: Dicyclomine [Bentyl] 10 mg PO QID PRN #10 cap PRN Reason: Gi Distress Ondansetron ODT [Zofran ODT] 4 mg PO Q6 PRN #10 odt PRN Reason: Nausea/Vomiting Vancomycin [Vancocin (ORAL OR RECTAL USE)] 125 mg PO Q6 10 Days soln Instructions: Diarrhea in Adolescents and Adults, Acute Abdomen (Belly Pain), Nausea and Vomiting, Adult Forms: [employer] [facility] (Liberian)
[2017-12-31] MEDS ORDERED: Sodium Chloride 0.9% 50 ML IV ONE (13:02)
[2017-12-31] MEDS ORDERED: Iohexol 300 100 ML IJ ONE (13:02)
--- NOTE | 2017-12-31 14:32 | CT ---
Date of service: 12/31/2017 PROCEDURE: CT Abdomen and Pelvis with contrast HISTORY: Abdominal pain, nausea and diarrhea RLQ tender COMPARISON: 06/10/2017. TECHNIQUE: CT scan of the abdomen and pelvis was performed after administration of intravenous contrast. Oral contrast was not administered. Coronal and sagittal reformatted images were obtained. Contrast dose: 95 cc Omnipaque 300 Radiation dose: Total exam DLP = 784.54 mGy-cm. This CT exam was performed using one or more of the following dose reduction techniques: Automated exposure control, adjustment of the mA and/or kV according to patient size, and/or use of iterative reconstruction technique. FINDINGS: LOWER THORAX: The visualized lungs are clear. LIVER: Mild hepatomegaly and fatty liver. Homogeneous enhancement. No gross lesion or ductal dilatation. GALLBLADDER AND BILE DUCTS: The gallbladder is well distended. There is redemonstration of tiny calcification in the fundal wall. No evidence for calcified gallstones, wall thickening or pericholecystic fluid. PANCREAS: Normal in size with homogeneous enhancement. No gross lesion or ductal dilatation. SPLEEN: Normal in size and appearance. ADRENALS: No discrete nodule. KIDNEYS AND URETERS: Normal in size with homogeneous enhancement. There is a stable 2.0 cm simple cyst in the right lower pole. Tiny low-attenuation lesions in the right kidney are too small to characterize by CT criteria but likely small cortical cysts. There is nonspecific perinephric fat stranding. No hydronephrosis. No solid mass. VASCULATURE: Aortic atherosclerotic calcifications are present. No aortic aneurysm. BOWEL: Evaluation of the bowel is limited in the absence of oral contrast. The small bowel loops are normal in caliber. There is fecalization of small bowel contents. There is moderate amount of stool in the ascending colon. There is left colonic diverticulosis without CT evidence for acute diverticulitis. APPENDIX: Normal appendix. PERITONEUM: No free fluid. No free air. LYMPH NODES: No enlarged lymph nodes. BLADDER: Partially decompressed. Apparent mild mural thickening of the urinary bladder wall is nonspecific and could be related to underdistention however cystitis cannot be excluded. Please correlate with urine analysis. There is redemonstration of an urachal remnant. REPRODUCTIVE: The prostate gland is normal in size. BONES: No acute fracture. Mild multilevel degenerative disc disease, worse at L5-S1. OTHER FINDINGS: Small bilateral fat containing inguinal hernias, larger on the left. IMPRESSION: No acute abdominal or pelvic abnormality. Mild hepatomegaly and fatty liver. Left colonic diverticulosis without CT evidence for acute diverticulitis.
[2017-12-31 16:28] VITALS: BP 136/68; PULSE 80; RESP 18; TEMP 98
== END 2017-12-31 16:20 | disposition home or self-care (01) ==
LOC: H.ER 10:33
DX: R10.31 Right lower quadrant pain (principal); R11.0 Nausea; R19.7 Diarrhea, unspecified; E78.00 Pure hypercholesterolemia, unspecified; I10 Essential (primary) hypertension; Z79.899 Other long term (current) drug therapy
CPT/HCPCS: 74177; 80053; 83520; 83690; 85025; 96374; 99284; J1885; J2405; J7030; Q9967

== ENCOUNTER 2018-01-05 15:03 | Emergency (ER) | payer MEDICAID ==
[2018-01-05 15:04] VITALS: BMI 26.0
[2018-01-05 15:10] VITALS: TEMP 97.8
[2018-01-05] MEDS ORDERED: DiphenhydrAMINE 50 mg/ml Inj IVP STA (15:36)
[2018-01-05] MEDS ORDERED: DiphenhydrAMINE 50 mg/ml Inj ONE (15:48)
[2018-01-05 16:13] LABS: BASO % 0.7 % (0.0-2.0); EOS # 0.2 K/uL (0.0-0.7); EOS % 3.8 % (0.0-4.0); LYMPH # 1.4 K/uL (1.0-4.3); LYMPH % 24.8 % (20.0-40.0); MEAN CELL VOLUME 82.9 fl (80.0-94.0); MEAN CORPUSCULAR HEMOGLOBIN 27.1 pg (27.0-31.0); MEAN CORPUSCULAR HGB CONC 32.6 g/dL (33.0-37.0); MEAN PLATELET VOLUME 11.9 fl (7.2-11.7); MONO # 0.6 K/uL (0.0-0.8); MONO % 9.8 % (0.0-10.0); NEUT # 3.4 K/uL (1.8-7.0); NEUT % 60.9 % (50.0-75.0); NRBC % 0.2 % (0.0-0.0); RBC 5.53 Mil/uL (4.40-5.90); RED CELL DISTRIBUTION WIDTH 13.2 % (11.5-14.5); WHITE BLOOD COUNT 5.6 K/uL (4.8-10.8)
[2018-01-05 16:22] LABS: ALB/GLOB RATIO 1.6 (1.0-2.1); ALBUMIN 4.9 g/dL (3.5-5.0); ALT/SGPT 33 U/L (21-72); AST/SGOT 40 U/L (17-59); BLOOD UREA NITROGEN 20 mg/dl (9-20); CALCIUM 9.3 mg/dL (8.4-10.2); GFR NON-AFRICAN AMERICAN > 60; LIPASE 125 U/L (23-300)
--- NOTE | 2018-01-05 16:29 | ED PDOC ---
HPI: Abdomen Time Seen by Provider: 01/05/18 15:13 Chief Complaint (Nursing): Abdominal Pain Chief Complaint (Provider): Abdominal Pain History Per: Patient History/Exam Limitations: no limitations Onset/Duration Of Symptoms: Days (6x) Current Symptoms Are (Timing): Still Present Severity: Moderate Location Of Pain/Discomfort: RUQ, Epigastric Associated Symptoms: Nausea. denies: Vomiting, Diarrhea, Chest Pain, Other ( shortness of breath, melena, hematochezia, bright red blood per rectum) Additional Complaint(s): 57 year old male presents to the ED with complaints of nausea that has been ongoing for 6x days. Patient states he was seen in this ED 6x days ago for the same complaint. CT here was normal and he was discharged with a prescription for bentyl and zofran, which provided him transient relief, but the nausea returns after the medication wears off. Patient reports having abdominal pain, greatest in the right upper quadrant, radiating to the epigastrium. Patient denies having vomiting, melena, hematochezia, and bright red blood per rectum. PMD: Ishmael Alex MD Past Medical History Reviewed: Historical Data, Nursing Documentation, Vital Signs Vital Signs: Last Vital Signs Temp 97.8 F 01/05/18 15:08 Pulse 70 01/05/18 15:08 Resp 19 01/05/18 15:08 BP 158/93 H 01/05/18 15:08 Pulse Ox 100 01/05/18 15:08 - Medical History PMH: Anxiety, Arthritis, Asthma, Back Problems, Benign Prostatic Hyperplasia, COPD, Diverticulitis, Gastritis, Hiatal Hernia, HTN, Hypercholesterolemia, Chronic Pain (Chronic back pain due to spinal stenosis) Denies: CHF, HIV, Chronic Kidney Disease - Surgical History Surgical History: Endoscopy, Hernia Repair - Family History Family History: States: [place], CAD, Diabetes, Hypertension - Social History Alcohol: None Drugs: Denies - Immunization History Hx Tetanus Toxoid Vaccination: No Hx Influenza Vaccination: No Hx Pneumococcal Vaccination: No - Home Medications Home Medications: Ambulatory Orders Medication Instructions Recorded Metoprolol Tartrate 25 mg PO BID 03/15/15 Lisinopril [Zestril] 40 mg PO DAILY 11/09/15 Acetaminophen/Oxycodone Hydr 1 tab PO TID 01/16/17 [Percocet 10/325 mg Tab] Albuterol HFA [Ventolin HFA 90 2 puff IH BID PRN 01/16/17 mcg/actuation (8 g)] Atorvastatin [Lipitor] 40 mg PO DAILY 01/16/17 Fluticasone/Salmeterol 500/50 2 puff INH BID 01/16/17 [Advair Diskus 500/50] Morphine Sulfate [Ms Contin] 30 mg PO BID 01/16/17 Pantoprazole Sodium [Protonix] 40 mg PO DAILY 05/10/17 hydroCHLOROthiazide [Hydrodiuril] 25 mg PO DAILY 05/10/17 Simethicone [Mylicon Chew Tab] 80 mg PO PCHS PRN #30 chew 07/15/17 Ondansetron ODT [Zofran ODT] 4 mg PO Q8H PRN #20 odt 09/11/17 Aspirin [Aspirin EC] 325 mg PO PRN PRN 12/20/17 Dicyclomine [Bentyl] 10 mg PO QID PRN #10 cap 12/31/17 Ondansetron ODT [Zofran ODT] 4 mg PO Q6 PRN #10 odt 12/31/17 Vancomycin [Vancocin (ORAL OR 125 mg PO Q6 10 Days soln 12/31/17 RECTAL USE)] Metoclopramide [Reglan] 10 mg PO TID PRN #15 tab 01/05/18 - Allergies Allergies/Adverse Reactions: Allergies Allergy/AdvReac Type Severity Reaction Status Date / Time No Known Allergies Allergy Verified 12/20/17 09:55 Review of Systems ROS Statement: Except As Marked, All Systems Reviewed And Found Negative Cardiovascular: Negative for: Chest Pain Respiratory: Negative for: Shortness of Breath Gastrointestinal: Positive for: Nausea, Abdominal Pain (right upper quadrant radiating to epigastrium). Negative for: Vomiting, Melena, Hematochezia, Other (bright red blood per rectum) Physical Exam - Reviewed Nursing Documentation Reviewed: Yes Vital Signs Reviewed: Yes - Physical Exam Appears: Positive for: Well, Non-toxic, No Acute Distress Head Exam: Positive for: ATRAUMATIC, NORMOCEPHALIC Skin: Positive for: Normal Color Cardiovascular/Chest: Positive for: Regular Rate, Rhythm Respiratory: Positive for: Normal Breath Sounds Gastrointestinal/Abdominal: Positive for: Normal Exam, Soft. Negative for: Tenderness, Other ((-) means's sign) Back: Positive for: Normal Inspection. Negative for: L CVA Tenderness, R CVA Tenderness Neurologic/Psych: Positive for: Alert, Oriented (3x) - Laboratory Results Result Diagrams: 01/05/18 16:04 01/05/18 16:04 - ECG ECG: Positive for: Interpreted By Me, Viewed By Me ECG Rhythm: Positive for: Sinus Rhythm (at 68 beats per minute). Negative for: ST/T Changes O2 Sat by Pulse Oximetry: 100 (RA) Pulse Ox Interpretation: Normal - Progress ED Course And Treament: Abd US: no stones On re-evaluation, pt. reports feeling much better. Nausea has resolved. Advised to f/u with Dr. Lord for further evaluation. Labs and diagnostics reviewed with Dr. Wood who agrees with plan and care. Medical Decision Making Medical Decision Makin:13 Initial impression: 57 year old male with abdominal pain and nausea. Initial plan: * US gallbladder & pancreas * EKG * CMP * lipase * troponin I * CBC * udip * benadryl 50 mg IVP * pepcid 20 mg IVP * reglan 10 mg IVPB * reevaluation 16:00 EKG: sinus rhythm at 68 beats per minute. No ST/T changes. Scribe Attestation: Documented Johnathon Carrillo, acting as a scribe for Ishmael Perdomo Provider Scribe Attestation: All medical record entries made by the Scribe were at my direction and personally dictated by me. I have reviewed the chart and agree that the record accurately reflects my personal performance of the history, physical exam, medical decision making, and the department course for this patient. I have also personally directed, reviewed, and agree with the discharge instructions and disposition. Disposition - Clinical Impression Clinical Impression: Nausea - Patient ED Disposition Is Patient to be Admitted: No - Disposition Referrals: Ishmael Lord MD [Staff Provider] - Disposition: Routine/Home Disposition Time: 18:18 Condition: IMPROVED Additional Instructions: FOLLOW UP WITH DR. LORD FOR FURTHER EVALUATION RETURN TO ED IMMEDIATELY IF SYMPTOMS WORSEN TERESA CHAVEZ thank you for letting us take care of you today. Your provider farhad Wood III DO and you were treated for NAUSEA. The emergency medical care you received today was directed at your acute symptoms. If you were prescribed any medication, please fill it and take as directed. It may take several days for your symptoms to resolve. Return to the Emergency Department if your symptoms worsen, do not improve, or if you have any other problems. Please contact your doctor or call one of the physicians/clinics you have been referred to that are listed on the Patient Visit Information form that is included in your discharge packet. Bring any paperwork you were given at discharge with you along with any medications you are taking to your follow up visit. Our treatment cannot replace ongoing medical care by a primary care provider outside of the emergency department. Thank you for allowing the [facility] team to be part of your care today. If you had an X-Ray or CT scan: A Radiologist will review the ED reading if any change in treatment is needed we will contact you. If you had a blood, urine, or wound culture: It will take several days for the results, if any change in treatment is needed we will contact you. If you had an STI test: It will take 48 hours for the results. Please call after 1 week if you have not heard back. Prescriptions: Metoclopramide [Reglan] 10 mg PO TID PRN #15 tab PRN Reason: Nausea/Vomiting Instructions: Nausea and Vomiting, Adult (DC) Forms: [employer] (Romanian)
[2018-01-05 18:47] VITALS: BP 146/79; PULSE 74; RESP 16; O2SAT 98
--- NOTE | 2018-01-06 06:38 | CARD ---
APPROVED REPORT Date of service: 01/05/2018 EKG Measurement Heart [id number] <Conclusion> Normal sinus rhythm Normal ECG
--- NOTE | 2018-01-06 08:06 | US ---
Date of service: 01/05/2018 HISTORY: RUQ and epigastric pain COMPARISON: None. TECHNIQUE: Sonographic evaluation of the right upper quadrant of the abdomen. FINDINGS: LIVER: Measures 17.1 cm in length. Diffusely increased echogenicity of the liver parenchyma. No mass. No intrahepatic bile duct dilatation. GALLBLADDER: Distended but otherwise unremarkable. No cholelithiasis identified. No sonographic Sosa sign reported. COMMON BILE DUCT: Measures 3.2 mm. No stones. No dilatation. PANCREAS: Obscured by overlying bowel gas. RIGHT KIDNEY: Measures 11.4 cm in length. Normal echogenicity. No calculus, mass, or hydronephrosis. At the lower pole, there is a simple cyst measure 1.0 x 1.0 x 1.4 cm. AORTA: Proximal segment poorly characterized due to overlying bowel gas. Distal segment patent. IVC: Unremarkable. OTHER FINDINGS: None . IMPRESSION: Hepatic steatosis or other infiltrative process noted. Small simple cyst lower pole right kidney. Overlying bowel gas obscures abdominal aorta and pancreas.
== END 2018-01-05 18:46 | disposition home or self-care (01) ==
LOC: H.ER 15:03
DX: R11.0 Nausea (principal); N28.1 Cyst of kidney, acquired; E78.00 Pure hypercholesterolemia, unspecified; Z79.899 Other long term (current) drug therapy
CPT/HCPCS: 76705; 80053; 83690; 84484; 85025; 93005; 96374; 96375; 99283; J1200; J2765

== ENCOUNTER 2018-01-13 17:42 | Emergency (ER) | payer MEDICAID ==
[2018-01-13 17:42] VITALS: BMI 26.0
[2018-01-13] MEDS ORDERED: Atrop/Hyos/Scop/PhenoB Elixir PO STA (18:45)
--- NOTE | 2018-01-13 19:07 | ED PDOC ---
HPI: Abdomen Time Seen by Provider: 01/13/18 18:22 Chief Complaint (Nursing): Abdominal Pain Chief Complaint (Provider): Epigastric abdominal pain x 2 weeks History Per: Patient History/Exam Limitations: no limitations Onset/Duration Of Symptoms: Days Outside of [place] travel?: No Current Symptoms Are (Timing): Still Present Location Of Pain/Discomfort: Epigastric Additional Complaint(s): 57 yo male with HTN, BPH, asthma, and high cholesterol presents for evaluation of epigastric abdominal pain. Pt states he was seen 2 weeks ago and 1 week ago with the same. Pt states that he also saw Dr. Franklin who recommended e ndoscopy. Pt states he has not scheduled it yet but had one with Dr. Franklin 1 year ago which was normal. Pt states today his nausea is back and the pain remains that same. Past Medical History Reviewed: Historical Data, Nursing Documentation, Vital Signs Vital Signs: Last Vital Signs Temp 96.5 F L 01/13/18 17:48 Pulse 79 01/13/18 17:48 Resp 18 01/13/18 17:48 BP 137/61 01/13/18 17:48 Pulse Ox 99 01/13/18 17:48 - Medical History PMH: Anxiety, Arthritis, Asthma, Back Problems, Benign Prostatic Hyperplasia, COPD, Diverticulitis, Gastritis, Hiatal Hernia, HTN, Hypercholesterolemia, Chronic Pain (Chronic back pain due to spinal stenosis) Denies: CHF, HIV, Chronic Kidney Disease - Surgical History Surgical History: Endoscopy, Hernia Repair - Family History Family History: States: [place], CAD, Diabetes, Hypertension - Immunization History Hx Tetanus Toxoid Vaccination: No Hx Influenza Vaccination: No Hx Pneumococcal Vaccination: No - Home Medications Home Medications: Ambulatory Orders Medication Instructions Recorded Metoprolol Tartrate 25 mg PO BID 03/15/15 Lisinopril [Zestril] 40 mg PO DAILY 11/09/15 Acetaminophen/Oxycodone Hydr 1 tab PO TID 01/16/17 [Percocet 10/325 mg Tab] Albuterol HFA [Ventolin HFA 90 2 puff IH BID PRN 01/16/17 mcg/actuation (8 g)] Atorvastatin [Lipitor] 40 mg PO DAILY 01/16/17 Fluticasone/Salmeterol 500/50 2 puff INH BID 01/16/17 [Advair Diskus 500/50] Morphine Sulfate [Ms Contin] 30 mg PO BID 01/16/17 Pantoprazole Sodium [Protonix] 40 mg PO DAILY 05/10/17 hydroCHLOROthiazide [Hydrodiuril] 25 mg PO DAILY 05/10/17 Simethicone [Mylicon Chew Tab] 80 mg PO PCHS PRN #30 chew 07/15/17 Ondansetron ODT [Zofran ODT] 4 mg PO Q8H PRN #20 odt 09/11/17 Aspirin [Aspirin EC] 325 mg PO PRN PRN 12/20/17 Dicyclomine [Bentyl] 10 mg PO QID PRN #10 cap 12/31/17 Ondansetron ODT [Zofran ODT] 4 mg PO Q6 PRN #10 odt 12/31/17 Vancomycin [Vancocin (ORAL OR 125 mg PO Q6 10 Days soln 12/31/17 RECTAL USE)] Metoclopramide [Reglan] 10 mg PO TID PRN #15 tab 01/05/18 Dicyclomine [Bentyl] 20 mg PO Q6H PRN #20 tab 01/13/18 Ondansetron ODT [Zofran ODT] 4 mg PO QID #20 odt 01/13/18 - Allergies Allergies/Adverse Reactions: Allergies Allergy/AdvReac Type Severity Reaction Status Date / Time No Known Allergies Allergy Verified 01/13/18 17:48 Review of Systems ROS Statement: Except As Marked, All Systems Reviewed And Found Negative Constitutional: Negative for: Fever, Chills Gastrointestinal: Positive for: Abdominal Pain. Negative for: Nausea, Vomiting, Diarrhea Genitourinary Male: Negative for: Dysuria, Frequency Physical Exam - Reviewed Nursing Documentation Reviewed: Yes Vital Signs Reviewed: Yes - Physical Exam Appears: Positive for: Well, Non-toxic, No Acute Distress Head Exam: Positive for: ATRAUMATIC, NORMAL INSPECTION, NORMOCEPHALIC Skin: Positive for: Normal Color, Warm, DRY Eye Exam: Positive for: Normal appearance ENT: Positive for: Normal ENT Inspection Neck: Positive for: Normal, Painless ROM Cardiovascular/Chest: Positive for: Regular Rate, Rhythm Respiratory: Positive for: Normal Breath Sounds. Negative for: Accessory Muscle Use, Respiratory Distress Gastrointestinal/Abdominal: Positive for: Soft, Tenderness (Mild suprapubic pain ). Negative for: Normal Exam, Distended, Guarding, Rebound Back: Positive for: Normal Inspection Extremity: Positive for: Normal ROM Neurologic/Psych: Positive for: Alert, Oriented - Laboratory Results Result Diagrams: 01/13/18 19:11 01/13/18 19:11 - ECG O2 Sat by Pulse Oximetry: 99 Medical Decision Making Medical Decision Making: Labs normal. Discussed f/u again with Dr. Franklin. Disposition - Clinical Impression Clinical Impression: Abdominal pain - Patient ED Disposition Is Patient to be Admitted: No Counseled Patient/Family Regarding: Diagnosis, Need For Followup - Disposition Referrals: Ishmael Franklin MD [Staff Provider] - Disposition: Routine/Home Disposition Time: 19:51 Condition: GOOD Additional Instructions: Please follow-up with Dr. Franklin. Prescriptions: Dicyclomine [Bentyl] 20 mg PO Q6H PRN #20 tab PRN Reason: Cramping Ondansetron ODT [Zofran ODT] 4 mg PO QID #20 odt Instructions: Acute Abdomen (Belly Pain) Forms: [employer] ([place]otho)
[2018-01-13 19:20] LABS: BASO % 0.3 % (0.0-2.0); EOS # 0.1 K/uL (0.0-0.7); HEMOGLOBIN 14.3 g/dL (12.0-18.0); LYMPH # 0.9 K/uL (1.0-4.3); LYMPH % 17.6 % (20.0-40.0); MEAN CELL VOLUME 85.6 fl (80.0-94.0); MEAN CORPUSCULAR HEMOGLOBIN 27.6 pg (27.0-31.0); MEAN CORPUSCULAR HGB CONC 32.2 g/dL (33.0-37.0); MEAN PLATELET VOLUME 11.2 fl (7.2-11.7); MONO # 0.5 K/uL (0.0-0.8); MONO % 9.2 % (0.0-10.0); NEUT # 3.5 K/uL (1.8-7.0); NEUT % 70.9 % (50.0-75.0); NRBC % 0.1 % (0.0-0.0); RBC 5.18 Mil/uL (4.40-5.90); RED CELL DISTRIBUTION WIDTH 13.2 % (11.5-14.5)
[2018-01-13 19:26] LABS: ALB/GLOB RATIO 1.7 (1.0-2.1); ALBUMIN 4.8 g/dL (3.5-5.0); ALT/SGPT 23 U/L (21-72); AST/SGOT 35 U/L (17-59); BLOOD UREA NITROGEN 21 mg/dl (9-20); CALCIUM 9.2 mg/dL (8.4-10.2); GFR NON-AFRICAN AMERICAN > 60
[2018-01-13 21:10] VITALS: BP 122/72; PULSE 60; RESP 16; TEMP 98; O2SAT 98
== END 2018-01-13 21:09 | disposition home or self-care (01) ==
LOC: H.ER 17:42
DX: R10.13 Epigastric pain (principal); I10 Essential (primary) hypertension; N40.0 Benign prostatic hyperplasia without lower urinary tract symptoms; G89.29 Other chronic pain; J44.9 Chronic obstructive pulmonary disease, unspecified; Z82.49 Family history of ischemic heart disease and other diseases of the circulatory system; Z79.899 Other long term (current) drug therapy; Z79.82 Long term (current) use of aspirin; E78.00 Pure hypercholesterolemia, unspecified

== ENCOUNTER 2018-02-13 08:40 | Day surgery (SDC) | payer MEDICAID ==
[2018-02-13] MEDS ORDERED: Lactated Ringer's 500 ML IV ONE (09:30)
[2018-02-13 09:34] VITALS: BMI 27.1
[2018-02-13] MEDS ORDERED: Propofol 10 mg/ml Inj (20 ML) ONE (10:34)
[2018-02-13] MEDS ORDERED: Midazolam 2 MG/2 ML VIAL ONE (10:34)
[2018-02-13 11:07] VITALS: TEMP 97; O2SAT 98
[2018-02-13 11:20] VITALS: BP 100/60; PULSE 65; RESP 16
== END 2018-02-13 12:00 | disposition home or self-care (01) ==
LOC: H.ENDO 08:40
PROVIDERS: ATTEND Internal Medicine Gastroenterology
DX: K30 Functional dyspepsia (principal); J45.909 Unspecified asthma, uncomplicated; M19.90 Unspecified osteoarthritis, unspecified site; K44.9 Diaphragmatic hernia without obstruction or gangrene; K31.89 Other diseases of stomach and duodenum; K29.50 Unspecified chronic gastritis without bleeding
CPT/HCPCS: 43239; 88305; J2250; J2704; J7120

== ENCOUNTER 2018-04-30 10:16 | Day surgery (SDC) | payer MEDICAID ==
[2018-04-30 10:31] VITALS: BMI 28.4
[2018-04-30] MEDS ORDERED: Lactated Ringer's 1,000 ML IV ONE (10:38)
--- NOTE | 2018-04-30 11:10 | CP.SDSHP ---
Same Day Surgery H & P - History Proposed Procedure: Coccydynia Pre-Op Diagnosis: Ganglion of Impar injection - Previous Medical/Surgical History Cardiac: Hypertension Pulmonary: Emphysema/COPD Pain: 8.Very Severe - Allergies Allergies: Allergies No Known Allergies Allergy (Verified 04/30/18 10:31) - Physical Exam Vital Signs: Vital Signs 04/30/18 10:47 Temperature 98.4 F Pulse Rate 59 L Respiratory 18 Rate Blood Pressure 118/79 O2 Sat by Pulse 95 Oximetry Neuro: WNL Heart: WNL Lungs: WNL - Impression Impression: coccydynia Pt. Evaluated Today:Candidate for Anesthesia & Procedure: Yes Short Stay Discharge - Short Stay Discharge Admitting Diagnosis/Reason for Visit: M53.3 Disposition: HOME/ ROUTINE
[2018-04-30] MEDS ORDERED: Midazolam 2 MG/2 ML VIAL ONE (13:33)
[2018-04-30] MEDS ORDERED: methylPREDNISolone Depo 80 mg/ml Inj IM ONE (13:35)
[2018-04-30] MEDS ORDERED: Iohexol 300 10 ML IJ ONE (13:35)
[2018-04-30] MEDS ORDERED: Bupivacaine HCl 0.5% PF (30 ml) Inj IJ ONE (13:35)
[2018-04-30] MEDS ORDERED: Lactated Ringer's 1,000 ML IV SCH (14:00)
[2018-04-30 17:12] VITALS: BP 122/79; PULSE 68; RESP 20; TEMP 97.9; O2SAT 97
--- NOTE | 2018-05-01 08:23 | OP ---
PROCEDURE DATE: 04/30/2018 PREOPERATIVE DIAGNOSES: Coccydynia and lumbar trigger point. POSTOPERATIVE DIAGNOSES: Coccydynia and lumbar trigger point. PROCEDURE: Ganglion of impar injection and also lumbar trigger point injections x2 muscles. ANESTHESIOLOGIST: Dr. Dowd SURGEON: Shakira Seay MD TYPE OF ANESTHESIA: Monitored anesthesia care. COMPLICATIONS: None. SPECIMEN: None. DESCRIPTION OF PROCEDURE: Procedure is as follows. After we had discussion of the procedure with the patient including its risks, benefits, alternatives, outcome data, possibility of no effect or increased pain, the patient consented to do the procedure. He denied any recent infection, bleeding tendencies, or being on anticoagulants. A decision was then made to proceed to the OR. The patient was placed on a fluoroscopy table in a prone position with two pillows underneath his abdomen. The back was prepped and draped in the usual sterile fashion, and a sterile technique was adhered to during the entire procedure. The sacrum was first visualized on the anteroposterior view, and the mid point was marked. The lateral view was obtained to ascertain the sacrococcygeal ligament. The skin overlying this area was then infiltrated with 1% lidocaine using 25-gauge needle. Subsequently, a 25-gauge 3.5-inch spinal needle was then inserted above the ligament and perpendicular to the skin until the needle appeared in the ligament. The needle was then advanced under fluoroscopic guidance until it is 5 mm anterior to the sacrum. Care was taken not to reach the depth of the air-filled intestines. After appropriate placement of the needle, approximately 0.5 mL of Isovue contrast was injected showing appropriate spread in front of the sacrum without any signs of bowel extravasation. At this point, approximately 5 mL of 0.5% Marcaine and Depo-Medrol mixture was injected. The needle was then removed. Then, the trigger point in the lower back was then identified. Using a 25-gauge 1.5-inch needle, the trigger points were then infiltrated with 0.5% Marcaine in two different locations using same like technique. Aspiration took out was negative air, blood, or other substance. At the end of the case, the patient's back was cleaned, and dry bandage was applied. The patient was then transferred to the recovery area in good condition without any signs of MDS RN toxicity or any neurological deficit. He will be following up in our office in approximately two to four weeks. Shakira Seay MD [facility] # [id number]
--- NOTE | 2018-05-01 14:08 | RAD ---
Date of service: 04/30/2018 PROCEDURE: Intraoperative Fluoroscopy. HISTORY: PAIN MANAGEMENT FINDINGS: Fluoroscopic assistance was provided. Fluoroscopy time = 19.1 sec. Radiation dose = 6.6 mGy. Please refer to the operative report from LANIE Isbell.
== END 2018-04-30 16:35 | disposition home or self-care (01) ==
LOC: H.OPSURG 10:16
PROVIDERS: ATTEND Anesthesiology
DX: M53.3 Sacrococcygeal disorders, not elsewhere classified (principal); J44.9 Chronic obstructive pulmonary disease, unspecified; I10 Essential (primary) hypertension; M67.48 Ganglion, other site
CPT/HCPCS: 20553; J1040; J2250; J3010; J7120; Q9967

== ENCOUNTER 2018-05-14 15:43 | Emergency (ER) | payer MEDICAID ==
[2018-05-14 16:18] VITALS: RESP 16; O2SAT 96
[2018-05-14] MEDS ORDERED: Iohexol 240 (50 ml) PO ONE (17:23)
[2018-05-14] MEDS ORDERED: Sodium Chloride 0.9% 1,000 ML IV ONE (17:24)
[2018-05-14] MEDS ORDERED: Iohexol 240 (50 ml) ONE (17:34)
[2018-05-14 18:09] LABS: SQUAMOUS EPITHIAL < 1 /hpf (0-5); URINE BILIRUBIN NEGATIVE (NEGATIVE); URINE BLOOD NEGATIVE (NEGATIVE); URINE CLARITY CLEAR (Clear); URINE COLOR COLORLESS (YELLOW); URINE GLUCOSE (UA) NEG (NEGATIVE); URINE LEUKOCYTE ESTERASE NEG Leu/uL (Negative); URINE PROTEIN NEGATIVE (NEGATIVE); URINE UROBILINOGEN 0.2-1.0 mg/dL (0.2-1.0)
[2018-05-14 18:22] LABS: BASO % 0.5 % (0.0-2.0); EOS # 0.1 K/uL (0.0-0.7); EOS % 2.1 % (0.0-4.0); HEMOGLOBIN 15.1 g/dL (12.0-18.0); LYMPH # 1.2 K/uL (1.0-4.3); LYMPH % 19.2 % (20.0-40.0); MEAN CELL VOLUME 81.7 fl (80.0-94.0); MEAN CORPUSCULAR HEMOGLOBIN 27.6 pg (27.0-31.0); MEAN CORPUSCULAR HGB CONC 33.8 g/dL (33.0-37.0); MEAN PLATELET VOLUME 11.1 fl (7.2-11.7); MONO # 0.6 K/uL (0.0-0.8); MONO % 8.8 % (0.0-10.0); NEUT # 4.5 K/uL (1.8-7.0); NEUT % 69.4 % (50.0-75.0); NRBC % 0.1 % (0.0-0.0); RBC 5.46 Mil/uL (4.40-5.90); RED CELL DISTRIBUTION WIDTH 13.4 % (11.5-14.5); WHITE BLOOD COUNT 6.5 K/uL (4.8-10.8)
[2018-05-14 18:25] LABS: ALB/GLOB RATIO 1.8 (1.0-2.1); ALBUMIN 4.5 g/dL (3.5-5.0); ALT/SGPT 32 U/L (21-72); AST/SGOT 26 U/L (17-59); BLOOD UREA NITROGEN 19 mg/dl (9-20); CALCIUM 9.6 mg/dL (8.4-10.2); GFR NON-AFRICAN AMERICAN > 60; LIPASE 142 U/L (23-300)
[2018-05-14] MEDS ORDERED: Iohexol 300 100 ML IJ ONE (19:58)
[2018-05-14] MEDS ORDERED: Sodium Chloride 0.9% 50 ML IV ONE (19:58)
--- NOTE | 2018-05-14 20:23 | ED PDOC ---
HPI: Abdomen Time Seen by Provider: 05/14/18 16:40 Chief Complaint (Nursing): Abdominal Pain Chief Complaint (Provider): Abdominal Pain History Per: Patient History/Exam Limitations: no limitations Onset/Duration Of Symptoms: Days (two to three days) Outside of [place] travel?: No Context: Other (recent dx of cdif) Location Of Pain/Discomfort: RLQ Associated Symptoms: denies: Fever, Chills, Nausea, Vomiting, Diarrhea, Loss Of Appetite, Constipation (Pt presents to the ED complaining of RLQ pain after a recent dx of c.diff; pt denies nausea, vomiting, diarhhea, fever or constitpation. Pt denies anorexia or urinary symptoms; pt does have a hx of diverticulosis) Past Medical History Reviewed: Historical Data, Nursing Documentation, Vital Signs Vital Signs: Last Vital Signs Temp 98.1 F 05/14/18 16:15 Pulse 66 05/14/18 16:15 Resp 16 05/14/18 16:15 BP 143/91 H 05/14/18 16:15 Pulse Ox 96 05/14/18 16:15 - Medical History PMH: Anxiety, Arthritis, Asthma, Back Problems, Benign Prostatic Hyperplasia, COPD, Diverticulitis, Gastritis, Gall Bladder Disease, Hiatal Hernia, HTN, Hypercholesterolemia, Chronic Pain (Chronic back pain due to spinal stenosis) Denies: CHF, HIV, Chronic Kidney Disease - Surgical History Surgical History: Endoscopy (Hx gastric ucer), Hernia Repair - Family History Family History: States: [place], CAD, Diabetes, Hypertension - Immunization History Hx Tetanus Toxoid Vaccination: No Hx Influenza Vaccination: Yes Hx Pneumococcal Vaccination: Yes - Home Medications Home Medications: Ambulatory Orders Medication Instructions Recorded Metoprolol Tartrate 25 mg PO BID 03/15/15 Lisinopril [Zestril] 40 mg PO DAILY 11/09/15 Albuterol HFA [Ventolin HFA 90 2 puff IH Q4 PRN 01/16/17 mcg/actuation (8 g)] Fluticasone/Salmeterol 500/50 2 puff INH Q12 01/16/17 [Advair Diskus 500/50] hydroCHLOROthiazide [Hydrodiuril] 25 mg PO DAILY 05/10/17 Atorvastatin [Lipitor] 20 mg PO DAILY 05/02/18 Atropine/Diphenoxylate [Lonox 1 tab PO Q8 #10 tab 05/02/18 0.025 MG-2.5 MG] Gabapentin [Neurontin] 1,200 mg PO Q8 05/02/18 Metronidazole [Flagyl] 500 mg PO TID #30 tablet 05/02/18 Morphine Sulfate [Morphine Sulfate 30 mg PO Q8 05/02/18 ER] Oxycodone HCl/Acetaminophen 1 tab PO Q6 PRN 05/02/18 [Percocet 10-325 mg Tablet] Pantoprazole Sodium [Protonix] 40 mg PO DAILY 05/02/18 Ranitidine HCl [Zantac] 150 mg PO BID 05/02/18 - Allergies Allergies/Adverse Reactions: Allergies Allergy/AdvReac Type Severity Reaction Status Date / Time No Known Allergies Allergy Verified 05/14/18 16:15 Review of Systems ROS Statement: Except As Marked, All Systems Reviewed And Found Negative Gastrointestinal: Positive for: Abdominal Pain Physical Exam - Reviewed Nursing Documentation Reviewed: Yes Vital Signs Reviewed: Yes - Physical Exam Appears: Positive for: Well, Non-toxic, No Acute Distress. Negative for: Uncomfortable Head Exam: Positive for: ATRAUMATIC, NORMAL INSPECTION Skin: Positive for: Normal Color, Warm, Dry. Negative for: Diaphoresis, Pallor, Rash Eye Exam: Positive for: Normal appearance, PERRL. Negative for: Nystagmus, Periorbital swelling, Periorbital tenderness Neck: Positive for: Normal, Supple Cardiovascular/Chest: Positive for: Regular Rate, Rhythm Respiratory: Positive for: Normal Breath Sounds. Negative for: Crackles, Rales, Rhonchi, Stridor, Wheezing, Respiratory Distress Pulses-Carotid (L): 2+ Pulses-Carotid (R): 2+ Pulses-Radial (L): 2+ Pulses-Radial (R): 2+ Gastrointestinal/Abdominal: Positive for: Bowel Sounds (Bowel sounds are active in all four quadrants. The fausto, rovsing and psoas signs are negative as are the means sign. There is mild tenderness at mcburney point. ), Soft, Tenderness. Negative for: Distended, Guarding, Rebound - Laboratory Results Result Diagrams: 05/14/18 17:34 05/14/18 17:34 Lab Results: Total Bilirubin 1.2 mg/dl (0.2-1.3) 05/14/18 17:34 AST 26 U/L (17-59) 05/14/18 17:34 ALT 32 U/L (21-72) 05/14/18 17:34 Alkaline Phosphatase 65 U/L (38-126) 05/14/18 17:34 Total Protein 7.0 G/DL (6.3-8.2) 05/14/18 17:34 Albumin 4.5 g/dL (3.5-5.0) 05/14/18 17:34 Globulin 2.5 gm/dL (2.2-3.9) 05/14/18 17:34 Albumin/Globulin Ratio 1.8 (1.0-2.1) 05/14/18 17:34 Lipase 142 U/L (23-300) 05/14/18 17:34 Urine Color Colorless (YELLOW) 05/14/18 17:34 Urine Clarity Clear (Clear) 05/14/18 17:34 Urine pH 7.0 (5.0-8.0) 05/14/18 17:34 Ur Specific Drifting 1.005 (1.003-1.030) 05/14/18 17:34 Urine Protein Negative mg/dL (NEGATIVE) 05/14/18 17:34 Urine Glucose (UA) Neg mg/dL (NEGATIVE) 05/14/18 17:34 Urine Ketones Negative mg/dL (NEGATIVE) 05/14/18 17:34 Urine Blood Negative (NEGATIVE) 05/14/18 17:34 Urine Nitrate Negative (NEGATIVE) 05/14/18 17:34 Urine Bilirubin Negative (NEGATIVE) 05/14/18 17:34 Urine Urobilinogen 0.2-1.0 mg/dL (0.2-1.0) 05/14/18 17:34 Ur Leukocyte Esterase Neg Camila/uL (Negative) 05/14/18 17:34 Urine RBC (Auto) 1 /hpf (0-3) 05/14/18 17:34 Urine Microscopic WBC 1 /hpf (0-5) 05/14/18 17:34 Ur Squamous Epith Cells < 1 /hpf (0-5) 05/14/18 17:34 - ECG O2 Sat by Pulse Oximetry: 96 Medical Decision Making Medical Decision Making: I: R/O cdiff R/O appy P: stool culture CBC CMP UA Toradol CT Abd and Pelvis with PO contrast Stool Sample (cdiff culture) 1829 on reevaluation, the patient was stable 1930- on reevaluation, the patient was stable and comfortable 2009 - the patient's care was transferred to [facility] Disposition - Clinical Impression Clinical Impression: Abdominal discomfort - Patient ED Disposition Is Patient to be Admitted: Transfer of Care - Disposition Disposition: Transfer of Care Disposition Time: 20:28 Condition: STABLE
--- NOTE | 2018-05-14 21:18 | ED PDOC ---
- Laboratory Results Result Diagrams: 05/14/18 17:34 05/14/18 17:34 Lab Results: Total Bilirubin 1.2 mg/dl (0.2-1.3) 05/14/18 17:34 AST 26 U/L (17-59) 05/14/18 17:34 ALT 32 U/L (21-72) 05/14/18 17:34 Alkaline Phosphatase 65 U/L (38-126) 05/14/18 17:34 Total Protein 7.0 G/DL (6.3-8.2) 05/14/18 17:34 Albumin 4.5 g/dL (3.5-5.0) 05/14/18 17:34 Globulin 2.5 gm/dL (2.2-3.9) 05/14/18 17:34 Albumin/Globulin Ratio 1.8 (1.0-2.1) 05/14/18 17:34 Lipase 142 U/L (23-300) 05/14/18 17:34 Urine Color Colorless (YELLOW) 05/14/18 17:34 Urine Clarity Clear (Clear) 05/14/18 17:34 Urine pH 7.0 (5.0-8.0) 05/14/18 17:34 Ur Specific [place] 1.005 (1.003-1.030) 05/14/18 17:34 Urine Protein Negative mg/dL (NEGATIVE) 05/14/18 17:34 Urine Glucose (UA) Neg mg/dL (NEGATIVE) 05/14/18 17:34 Urine Ketones Negative mg/dL (NEGATIVE) 05/14/18 17:34 Urine Blood Negative (NEGATIVE) 05/14/18 17:34 Urine Nitrate Negative (NEGATIVE) 05/14/18 17:34 Urine Bilirubin Negative (NEGATIVE) 05/14/18 17:34 Urine Urobilinogen 0.2-1.0 mg/dL (0.2-1.0) 05/14/18 17:34 Ur Leukocyte Esterase Neg Camila/uL (Negative) 05/14/18 17:34 Urine RBC (Auto) 1 /hpf (0-3) 05/14/18 17:34 Urine Microscopic WBC 1 /hpf (0-5) 05/14/18 17:34 Ur Squamous Epith Cells < 1 /hpf (0-5) 05/14/18 17:34 - ECG O2 Sat by Pulse Oximetry: 96 - Progress ED Course And Treament: Case endorsed to junior copywriter from [facility] pending CT and re-eval EXAM: CT Abdomen and Pelvis with IV contrast CLINICAL HISTORY: Rlq pain with recent hx of c.diff TECHNIQUE: Axial computed tomography images of the abdomen and pelvis with oral and intravenous contrast. 672.76 mGy-cm CONTRAST: With; [id number] 95ML COMPARISON: None provided. FINDINGS: LUNG BASES: The lung bases appear clear. No pleural effusions are seen. LIVER: Unremarkable. GALLBLADDER AND BILE DUCTS: The gallbladder appears within normal limits. No radioopaque gallstones are s een. No biliary ductal dilatation is evident. PANCREAS: Unremarkable. SPLEEN: Unremarkable. ADRENAL GLANDS: Unremarkable. KIDNEYS, URETERS, AND BLADDER: The kidneys appear within normal limits. There is no hydronephrosis or hydroureter. No urinary calculi are seen. STOMACH AND BOWEL: Small hiatal hernia is noted. There is diffuse diverticulosis noted involving descending and sigmoid colon. No evidence of acute diverticulitis. Thick walled loops of ileum as well as cecum compatible with enterocolitis Infectious and inflammatory etiologies are considered. Consider consultation with GI service and follow up with colonoscopy. APPENDIX: No evidence of acute appendicitis on CT examination. PERITONEUM: No free fluid. No free air. LYMPH NODES: Multiple borderline enlarged mesenteric lymph nodes are noted associated mild mesenteric infiltration, most consistent with mesenteric lymphadenitis. Clinical correlation is recommended. REPRODUCTIVE: Prostate gland is moderately enlarged and contains calcifications. Please correlate with PSA levels. VASCULATURE: No evidence of abdominal aortic aneurysm. BONES: No aggressive appearing osseous lesion. No acute osseous pathology evident. IMPRESSION: 1. Small hiatal hernia is noted. 2. There is diffuse diverticulosis noted involving descending and sigmoid colon. No evidence of acute diverticulitis. 3. Multiple borderline enlarged mesenteric lymph nodes are noted associated mild mesenteric infiltration, most consistent with mesenteric lymphadenitis. Clinical correlation is recommended. 4. Thick walled loops of ileum as well as cecum compatible with enterocolitis Infectious and inflammatory etiologies are considered. Consider consultation with GI service and follow up with colonoscopy. 5. Prostate gland is moderately enlarged and contains calcifications. Please correlate with PSA levels Patient resting comfortably on re-eval. Unable to provide stool sample Patient educated on findings, discharged with rx Vancomycin (for colitis seen on CT and recent + cdiff), Florastor Advised follow up with GI Return precautions given Disposition - Clinical Impression Clinical Impression: Abdominal discomfort, Enterocolitis - POA Present On Arrival: None - Disposition Disposition: Routine/Home Disposition Time: 21:47 Condition: IMPROVED Prescriptions: Saccharomyces Boulardii [Florastor] 250 mg PO BID #60 capsule Vancomycin HCl 125 mg PO QID #40 capsule Instructions: Colitis Forms: [facility] (Kazakh)
[2018-05-14 22:11] VITALS: BP 131/68; PULSE 64; TEMP 98.5
--- NOTE | 2018-05-15 11:06 | CT ---
Date of service: 05/14/2018 PROCEDURE: CT Abdomen and Pelvis with contrast HISTORY: RLQ pain with recent hx of c.diff COMPARISON: 05/02/2018. TECHNIQUE: CT scan of the abdomen and pelvis was performed after administration of intravenous contrast. Oral contrast was administered. Coronal and sagittal reformatted images were obtained. Contrast dose: 95 mL Omnipaque 300 Radiation dose: Total exam DLP = 672.76 mGy-cm. This CT exam was performed using one or more of the following dose reduction techniques: Automated exposure control, adjustment of the mA and/or kV according to patient size, and/or use of iterative reconstruction technique. FINDINGS: LOWER THORAX: The visualized lungs are clear. LIVER: Mild hepatomegaly and fatty liver. Normal homogeneous enhancement. No gross lesion or ductal dilatation. GALLBLADDER AND BILE DUCTS: Well distended. No calcified gallstones, wall thickening or pericholecystic fluid. There is a tiny nonspecific calcification in the gallbladder fundus. PANCREAS: Normal in size with homogeneous enhancement. No gross lesion or ductal dilatation. SPLEEN: Normal in size and appearance. ADRENALS: No discrete nodule. KIDNEYS AND URETERS: Normal in size with homogeneous enhancement. No hydronephrosis. No solid mass. There is a stable presumable 1.4 cm simple cyst in the right lower pole. VASCULATURE: No aortic aneurysm. There are no aortic atherosclerotic calcifications or mural plaque present. BOWEL: The small bowel loops are normal in caliber. There is large amount of stool in the ascending and transverse colon. There is left colonic diverticulosis without CT evidence for acute diverticulitis. No bowel wall thickening or obstruction. APPENDIX: Normal appendix. PERITONEUM: No free fluid. No free air. LYMPH NODES: Multiple subcentimeter mesenteric lymph nodes are likely reactive. BLADDER: There is apparent moderate circumferential mural thickening of the urinary bladder wall. REPRODUCTIVE: Mild enlargement of the prostate gland. BONES: No acute fracture. Within normal limits for the patient's age. OTHER FINDINGS: Bilateral small fat containing inguinal hernias. There is a small sliding hiatal hernia. IMPRESSION: 1. Constipation. No evidence for bowel obstruction. 2. Left colonic diverticulosis without CT evidence for acute diverticulitis. 3. Apparent moderate circumferential mural thickening of the urinary bladder wall is nonspecific and could be related to underdistention however cystitis is also a consideration. Please correlate with urine analysis. 4. Mild hepatomegaly and fatty liver. 5. Mild enlargement of the prostate gland. Please correlate with PSA levels. A preliminary report was provided by [email or web address].
== END 2018-05-14 22:15 | disposition home or self-care (01) ==
LOC: H.ER 15:43
DX: K52.9 Noninfective gastroenteritis and colitis, unspecified (principal); K57.30 Diverticulosis of large intestine without perforation or abscess without bleeding; K44.9 Diaphragmatic hernia without obstruction or gangrene; E78.00 Pure hypercholesterolemia, unspecified; G89.29 Other chronic pain; I10 Essential (primary) hypertension; I88.9 Nonspecific lymphadenitis, unspecified; N40.0 Benign prostatic hyperplasia without lower urinary tract symptoms
CPT/HCPCS: 74177; 80053; 81003; 83690; 85025; 96361; 96374; 99284; J1885; J7030; Q9966; Q9967

== ENCOUNTER 2018-06-04 09:35 | Day surgery (SDC) | payer MEDICAID ==
[2018-05-21 10:52] VITALS: BMI 26.7
[2018-06-04 10:31] VITALS: RESP 18
[2018-06-04] MEDS ORDERED: Lactated Ringer's 1,000 ML IV ONE ×2 (10:57→14:43)
--- NOTE | 2018-06-04 12:16 | CP.SDSHP ---
Same Day Surgery H & P - History Proposed Procedure: Excision of mass on back x2 Pre-Op Diagnosis: Middle Back Mass x 2 - Previous Medical/Surgical History Cardiac: Hypertension (controlled on medications) Pulmonary: Asthma Pain: 2.Mild Pain Previous Surgical History: Right Open Inguinal Hernia, Hemorrhoidectomy - Allergies Allergies: Allergies No Known Allergies Allergy (Verified 05/14/18 16:15) - Physical Exam General Appearance: Well developed, no acute distress Vital Signs: Vital Signs 06/04/18 06/04/18 10:29 10:35 Temperature 98.1 F Pulse Rate 60 60 Respiratory 18 Rate Blood Pressure 101/67 O2 Sat by Pulse 95 Oximetry Mental Status: Alert & Oriented x3 Neuro: WNL (GCS 15 non-focal moving all 4 extremitites) Heart: WNL Lungs: WNL GI: WNL - {Optional Preform as Required} Abdomen: WNL Integument: Other (Back mass resembiling cystic mass) - Impression Impression: 58M pmhx significant for HTN, Asthma, and cyst on back expanding in size, previously infected 1 year ago now scheduled for excision of cyst from back Pt. Evaluated Today:Candidate for Anesthesia & Procedure: Yes - Date & Time Date: 06/04/18 Time: 12:16 Short Stay Discharge - Short Stay Discharge Admitting Diagnosis/Reason for Visit: D17.9 Disposition: HOME/ ROUTINE Follow-up: follow up in 1-2 weeks in clinic. Can shower after 2 days[address] Keep dressing in place Take Tylenol and Motrin for pain. If fever > 100.4 take Tylenol, if fever persists to to the Emergency Department Progress Note/Discharge Note with Instructions: All sutures in place are absorbable. Follow up in clinic in 1-2 weeks. Call to make an appointment. No heavy lifting greater than 15lbs till follow up Keep area dry, do not soak in bath or swim in ocean. Can shower after 48 hours. Dressing can come off after 48 hours. Steri-strips are underneath, keep in place and will slowly fall off on its own.
[2018-06-04] MEDS ORDERED: Bupivacaine 0.5% Inj(30mL) ONE (12:55)
[2018-06-04] MEDS ORDERED: Midazolam 2 MG/2 ML VIAL ONE ×2 (13:40→14:10)
[2018-06-04] MEDS ORDERED: Propofol 10 mg/ml Inj (20 ML) ONE ×2 (13:40→14:11)
[2018-06-04] MEDS ORDERED: Ketamine 50 mg/ml Inj (10 ml) ONE (13:51)
[2018-06-04] MEDS ORDERED: Lidocaine 1% w Epi 1:100,000 Inj ONE (13:55)
[2018-06-04] MEDS ORDERED: Lidocaine/Epi 1% 1:100000 20 ML IJ ONE ×2 (13:58)
[2018-06-04] MEDS ORDERED: Bupivacaine 0.5% 50 ML IJ ONE (14:38)
--- NOTE | 2018-06-04 14:54 | PCM.SURG1 ---
Surgeon's Initial Post Op Note - Surgeon's Notes Surgeon: Dr. Mendieta Line Operator: PGY2 Type of Anesthesia: IV Sedation Anesthesia Administered By: Dr. Dowd Pre-Operative Diagnosis: Mass on back x 2 Operative Findings: Deep lipoma, and Carbuncle Post-Operative Diagnosis: 1. Carbuncle of back. 2. Back Lipoma Operation Performed: 1. Excision of Back carbuncle. 2. Excision of Back Lipoma Specimen/Specimens Removed: 1. Back carbuncle. 2. Back Lipoma Estimated Blood Loss: EBL {In ML}: 5 Drains Used: No Drains Post-Op Condition: Good Date of Surgery/Procedure: 06/04/18 Time of Surgery/Procedure: 14:53 (Dictation #: [id number])
[2018-06-04] MEDS ORDERED: Oxycodone/Acetaminophen 5/325 mg Tab PO ONE (14:55)
[2018-06-04] MEDS: Lactated Ringer's 1,000 ML IV SCH ×2 (15:30→15:37)
[2018-06-04 17:20] VITALS: BP 108/72; PULSE 66; TEMP 98.6; O2SAT 97
--- NOTE | 2018-06-04 22:46 | CARD ---
APPROVED REPORT Date of service: 06/04/2018 EKG Measurement Heart [id number] <Conclusion> Normal sinus rhythm Normal ECG
--- NOTE | 2018-06-05 08:15 | OP ---
PROCEDURE DATE: 06/04/18 PREOPERATIVE DIAGNOSIS: Mass on back x2. POSTOPERATIVE DIAGNOSES: 1. Lipoma. 2. Carbuncle of the back. PROCEDURE: Excision of lipoma and excision of carbuncle on the back. SURGEON: Elio Mendieta MD JIG BORE OPERATOR: Fabricio Betancourt, PGY-2 TYPE OF ANESTHESIA: Deep IV sedation and local. ANESTHESIA ADMINISTERED BY: Eb Dowd MD ESTIMATED BLOOD LOSS: 5 mL SPECIMENS: 1. Carbuncle of back. 2. Lipoma of the back. INDICATION FOR SURGERY: This is a 58-year-old male with past medical history significant for hypertension and asthma, was stated to have a mass on his back over the past year, growing in nature, and had gotten infected in the past. However, it had settled down. He states the mass is agitating and causes him pain. Decision was made to remove the mass from the back x2. All consents were signed. The procedure was explained in detail and all risks were explained in detail. The patient agreed to the procedure. DESCRIPTION OF PROCEDURE: The patient was taken to the operating room and placed in prone position. IV sedation was administered while being continued to monitor on continuous O2 saturation. A time-out was taken, verifying the correct patient, procedure,and laterality. The patient was then prepped and draped in the usual sterile fashion using chlorhexidine. Initial incision was outlined starting from the left side over to where the suspected lipoma extending around to the cyst mass in elliptical fashion. A #15 blade was initially used to extend the incision through the skin directly over the lipoma. The excision was then extended in the elliptical fashion over the original outlined incision using a #10 blade. Appropriate hemostasis was achieved. The right-side carbuncle was then appropriately dissected out using a combination of sharp dissection with Metzenbaum scalpel and hemostasis was achieved. Specimen was passed off the table at this time. Attention was taken back towards the back over the left side. The lipoma was able to be palpated within the erector musculature and was dissected down using a combination of sharp and blunt dissection. The lipoma was then seen and was brought out using Allis and Deepti forceps. The lipoma was removed and the skin and fascia were then approximated. The space and fascia were approximated with 4-0 Vicryl in an interrupted fashion. At this time, the incision was then inspected. All appropriate hemostasis was achieved using electrocautery and suture ligation using 4-0 Vicryl. The incision was then approximated in a tension-free manner and was closed with 4-0 Monocryl in a running subcuticular fashion. Steri-Strips, 4 x 4s and tape were then placed as sterile dressing. The patient was woken up and taken to the postanesthesia care unit in stable condition. All counts were correct at the end of the case. Dr. Mendieta was present and participated in all aspects of this case. Fabricio Betancourt DO Elio Mendieta MD EMELY
== END 2018-06-04 17:10 | disposition home or self-care (01) ==
LOC: H.OPSURG 09:35
PROVIDERS: ATTEND Specialist
DX: D17.1 Benign lipomatous neoplasm of skin and subcutaneous tissue of trunk (principal); M19.90 Unspecified osteoarthritis, unspecified site; J45.909 Unspecified asthma, uncomplicated; E78.5 Hyperlipidemia, unspecified; I10 Essential (primary) hypertension; K29.70 Gastritis, unspecified, without bleeding
CPT/HCPCS: 21931; 88304; 88305; 93005; J0690; J2250; J2704; J3010; J7120

== ENCOUNTER 2018-06-08 13:24 | Emergency (ER) | payer MEDICAID ==
[2018-06-08 13:24] VITALS: BMI 26.7
--- NOTE | 2018-06-08 14:08 | ED PDOC ---
HPI: General Adult Time Seen by Provider: 06/08/18 13:42 Chief Complaint (Nursing): Abdominal Pain Chief Complaint (Provider): Abdominal Pain History Per: Patient History/Exam Limitations: no limitations Onset/Duration Of Symptoms: Days (x5) Current Symptoms Are (Timing): Still Present Additional Complaint(s): Patient is a 58 y/o male with an extensive PMHx who presents to the ED for evaluation of multiple complaints. The patient's first complaint is swelling to an incision, made to drain an abscess, on his upper back. Patient also reports tenderness to the region. The patient's second reason for visiting the ED is a burning, pounding sensation while urinating. In addition, patient claims associative abdominal pain. Patient denies blood in urine and diarrhea. Of note, patient has made an appointment for followup regarding the abscess surgery and has also scheduled an appointment with the clinic for 06/10/2018. PCP: [facility] Past Medical History Reviewed: Historical Data, Nursing Documentation, Vital Signs Vital Signs: Last Vital Signs Temp 98.3 F 06/08/18 13:37 Pulse 68 06/08/18 13:37 Resp 17 06/08/18 13:37 BP 126/80 06/08/18 13:37 Pulse Ox 98 06/08/18 13:37 - Medical History PMH: Anxiety, Arthritis, Asthma, Back Problems, Benign Prostatic Hyperplasia, COPD, Diverticulitis, Gastritis, Gall Bladder Disease, Hiatal Hernia, HTN, Hypercholesterolemia, Chronic Pain (Chronic back pain due to spinal stenosis) Denies: Anemia, CHF, HIV, Chronic Kidney Disease - Surgical History Surgical History: Endoscopy (Hx gastric ucer), Hernia Repair Other surgeries: Abscess Surgery - Family History Family History: States: [place], CAD, Diabetes, Hypertension - Social History Current smoker - smoking cessation education provided: No Ex-Smoker (has not smoked in the last 12 months): No Alcohol: None Drugs: Denies - Immunization History Hx Tetanus Toxoid Vaccination: No Hx Influenza Vaccination: Yes Hx Pneumococcal Vaccination: Yes - Home Medications Home Medications: Ambulatory Orders Medication Instructions Recorded Metoprolol Tartrate 25 mg PO BID 03/15/15 Lisinopril [Zestril] 40 mg PO DAILY 11/09/15 Albuterol HFA [Ventolin HFA 90 2 puff IH Q4 PRN 01/16/17 mcg/actuation (8 g)] Fluticasone/Salmeterol 500/50 2 puff INH Q12 01/16/17 [Advair Diskus 500/50] hydroCHLOROthiazide [Hydrodiuril] 25 mg PO DAILY 05/10/17 Atorvastatin [Lipitor] 20 mg PO DAILY 05/02/18 Gabapentin [Neurontin] 1,200 mg PO Q8 05/02/18 Morphine Sulfate [Morphine Sulfate 30 mg PO Q8 05/02/18 ER] Oxycodone HCl/Acetaminophen 1 tab PO Q6 PRN 05/02/18 [Percocet 10-325 mg Tablet] Ranitidine HCl [Zantac] 150 mg PO BID PRN 05/02/18 Saccharomyces Boulardii [Florastor] 250 mg PO BID #60 capsule 05/14/18 Nitrofurantoin Macrocrystals 100 mg PO BID #10 cap 06/08/18 [Macrobid] - Allergies Allergies/Adverse Reactions: Allergies Allergy/AdvReac Type Severity Reaction Status Date / Time No Known Allergies Allergy Verified 05/14/18 16:15 Review of Systems ROS Statement: Except As Marked, All Systems Reviewed And Found Negative Constitutional: Negative for: Fever Gastrointestinal: Positive for: Abdominal Pain. Negative for: Diarrhea Genitourinary Male: Positive for: Dysuria (burning and pounding). Negative for: Hematuria Skin: Positive for: Other (swelling and tenderness to incision on back from abscess surgery) Physical Exam - Reviewed Nursing Documentation Reviewed: Yes Vital Signs Reviewed: Yes - Physical Exam Appears: Positive for: No Acute Distress Head Exam: Positive for: ATRAUMATIC, NORMAL INSPECTION, NORMOCEPHALIC Skin: Positive for: Normal Color, Warm, DRY Eye Exam: Positive for: EOMI, Normal appearance, PERRL Neck: Positive for: Normal, Painless ROM, Supple Cardiovascular/Chest: Positive for: Regular Rate, Rhythm. Negative for: Murmur Respiratory: Positive for: Normal Breath Sounds. Negative for: Respiratory Distress Gastrointestinal/Abdominal: Positive for: Normal Exam, Soft. Negative for: Tenderness Back: Positive for: Normal Inspection, Other (horizontal incision clean and inta ct; no sign of infection, erythema, fluctuance, and induration). Negative for: L CVA Tenderness, R CVA Tenderness, Vertebral Tenderness Extremity: Positive for: Normal ROM. Negative for: Pedal Edema, Deformity Neurological/Psych: Positive for: Alert, Oriented (x3) - Laboratory Results Result Diagrams: 06/08/18 14:26 06/08/18 14:26 - ECG O2 Sat by Pulse Oximetry: 98 (RA) Pulse Ox Interpretation: Normal Medical Decision Making Medical Decision Making: Time: 1350 Impression: Wound Check and Dysuria Plan: EKG CMP Urine Dipstick CBC PTT Prothrombn Time C Diff Toxin A B UA 1500 Patient care endorsed to Dr. Portillo pending results and final disposition. Scribe Attestation: Documented by Anoop Kaur, acting as a scribe Arnel Mckeon MD. Provider Scribe Attestation: All medical record entries made by the Scribe were at my direction and personally dictated by me. I have reviewed the chart and agree that the record accurately reflects my personal performance of the history, physical exam, medical decision making, and the department course for this patient. I have also personally directed, reviewed, and agree with the discharge instructions and disposition. Disposition - Clinical Impression Clinical Impression: UTI (urinary tract infection), Abdominal pain - Disposition Referrals: [facility] [Outside] - 06/10/18 Disposition: Transfer of Care Disposition Time: 15:00 Condition: STABLE Additional Instructions: Return if not better in 3 days. Prescriptions: Nitrofurantoin Macrocrystals [Macrobid] 100 mg PO BID #10 cap Instructions: Urinary Tract Infections in Adults, Stomach Ache and Stomach Upset Forms: [facility] ED School/Work Excuse Patient Signed Over To: Roscoe Portillo (t)
[2018-06-08 14:31] LABS: BASO % 0.5 % (0.0-2.0); EOS # 0.2 K/uL (0.0-0.7); EOS % 3.2 % (0.0-4.0); HEMOGLOBIN 14.7 g/dL (12.0-18.0); LYMPH % 20.6 % (20.0-40.0); MEAN CELL VOLUME 83.1 fl (80.0-94.0); MEAN CORPUSCULAR HEMOGLOBIN 27.8 pg (27.0-31.0); MEAN CORPUSCULAR HGB CONC 33.4 g/dL (33.0-37.0); MEAN PLATELET VOLUME 11.4 fl (7.2-11.7); MONO # 0.6 K/uL (0.0-0.8); MONO % 11.4 % (0.0-10.0); NEUT # 3.2 K/uL (1.8-7.0); NEUT % 64.3 % (50.0-75.0); NRBC % 0.1 % (0.0-0.0); RBC 5.3 Mil/uL (4.40-5.90); RED CELL DISTRIBUTION WIDTH 13.8 % (11.5-14.5)
[2018-06-08 14:34] LABS: INR 0.9; PROTHROMBIN TIME 10.5 Seconds (9.8-13.1); SQUAMOUS EPITHIAL < 1 /hpf (0-5); URINE BILIRUBIN NEGATIVE (NEGATIVE); URINE BLOOD NEGATIVE (NEGATIVE); URINE CLARITY CLEAR (Clear); URINE COLOR STRAW (YELLOW); URINE GLUCOSE (UA) NEG (NEGATIVE); URINE LEUKOCYTE ESTERASE NEG Leu/uL (Negative); URINE PROTEIN NEGATIVE (NEGATIVE); URINE UROBILINOGEN 0.2-1.0 mg/dL (0.2-1.0)
[2018-06-08 14:36] LABS: PARTIAL THROMBOPLASTIN TIME 31.5 Seconds (25.6-37.1)
[2018-06-08 14:42] LABS: ALB/GLOB RATIO 1.8 (1.0-2.1); ALBUMIN 4.9 g/dL (3.5-5.0); ALT/SGPT 28 U/L (21-72); AST/SGOT 40 U/L (17-59); BLOOD UREA NITROGEN 13 mg/dl (9-20); CALCIUM 9.5 mg/dL (8.4-10.2); GFR NON-AFRICAN AMERICAN > 60
[2018-06-08] MEDS ORDERED: Sodium Chloride 0.9% 50 ML IV ONE (15:19)
[2018-06-08] MEDS ORDERED: Iohexol 300 100 ML IJ ONE (15:19)
--- NOTE | 2018-06-08 15:30 | ED PDOC ---
- Laboratory Results Result Diagrams: 06/08/18 14:26 06/08/18 14:26 Lab Results: PT 10.5 Seconds (9.8-13.1) 06/08/18 14:26 INR 0.9 06/08/18 14:26 APTT 31.5 Seconds (25.6-37.1) 06/08/18 14:26 Total Bilirubin 1.0 mg/dl (0.2-1.3) 06/08/18 14:26 AST 40 U/L (17-59) 06/08/18 14:26 ALT 28 U/L (21-72) 06/08/18 14:26 Alkaline Phosphatase 71 U/L (38-126) 06/08/18 14:26 Total Protein 7.6 G/DL (6.3-8.2) 06/08/18 14:26 Albumin 4.9 g/dL (3.5-5.0) 06/08/18 14:26 Globulin 2.7 gm/dL (2.2-3.9) 06/08/18 14:26 Albumin/Globulin Ratio 1.8 (1.0-2.1) 06/08/18 14:26 Urine Color Straw (YELLOW) 06/08/18 14:26 Urine Clarity Clear (Clear) 06/08/18 14:26 Urine pH 6.0 (5.0-8.0) 06/08/18 14:26 Ur Specific [place] 1.005 (1.003-1.030) 06/08/18 14:26 Urine Protein Negative mg/dL (NEGATIVE) 06/08/18 14:26 Urine Glucose (UA) Neg mg/dL (NEGATIVE) 06/08/18 14:26 Urine Ketones Negative mg/dL (NEGATIVE) 06/08/18 14:26 Urine Blood Negative (NEGATIVE) 06/08/18 14:26 Urine Nitrate Negative (NEGATIVE) 06/08/18 14:26 Urine Bilirubin Negative (NEGATIVE) 06/08/18 14:26 Urine Urobilinogen 0.2-1.0 mg/dL (0.2-1.0) 06/08/18 14:26 Ur Leukocyte Esterase Neg Camila/uL (Negative) 06/08/18 14:26 Urine RBC (Auto) < 1 /hpf (0-3) 06/08/18 14:26 Ur Squamous Epith Cells < 1 /hpf (0-5) 06/08/18 14:26 Interpretation Of Abn Labs: no acute - ECG ECG: Positive for: Interpreted By Me, Viewed By Me ECG Rhythm: Positive for: Normal QRS, Normal ST Segment, Sinus Rhythm O2 Sat by Pulse Oximetry: 98 (RA) Pulse Ox Interpretation: Normal - CT Scan/US ct Other Rad Studies (CT/US): Read By Radiologist Other Rad Interpretation: residual cystitis - Progress ED Course And Treament: 1716: Pain free. Tolerated PO. AAOx3. Fu with pcp. UTI. Medical Decision Making Medical Decision Makin Transfer of care endorsed from Dr. Mckeon to this provider pending CT and final disposition. --- Scribe Attestation: Documented by Rachel Fuentes, acting as a scribe for Roscoe Portillo MD. Provider Scribe Attestation: All medical record entries made by the Scribe were at my direction and personally dictated by me. I have reviewed the chart and agree that the record accurately reflects my personal performance of the history, physical exam, medical decision making, and the department course for this patient. I have also personally directed, reviewed, and agree with the discharge instructions and disposition. Disposition Counseled Patient/Family Regarding: Studies Performed, Diagnosis, Need For Followup, Rx Given - Clinical Impression Clinical Impression: Abdominal pain, UTI (urinary tract infection) - POA Present On Arrival: None - Disposition Referrals: [facility] [Outside] - 06/10/18 Disposition: Routine/Home Disposition Time: 17:17 Condition: STABLE Additional Instructions: Return if not better in 3 days. Prescriptions: Nitrofurantoin Macrocrystals [Macrobid] 100 mg PO BID #10 cap Instructions: Urinary Tract Infections in Adults, Stomach Ache and Stomach Upset Forms: [facility] ED School/Work Excuse
[2018-06-08 16:28] VITALS: RESP 18
[2018-06-08 16:54] VITALS: O2SAT 98
--- NOTE | 2018-06-08 17:02 | CT ---
Date of service: 06/08/2018 PROCEDURE: CT Abdomen and Pelvis with contrast HISTORY: LLQ pain COMPARISON: Abdomen pelvis CT with contrast 05/14/2018. TECHNIQUE: Following the intravenous administration of iodinated contrast material, a CT examination of the abdomen and pelvis was performed from the domes of the diaphragms to the symphysis pubis with reformatted datasets provided in axial, sagittal and coronal planes. Oral contrast was not administered as per referring physician request. Contrast dose: Omnipaque 300, 95 cc Radiation dose: Total exam DLP = 658.78 mGy-cm. This CT exam was performed using one or more of the following dose reduction techniques: Automated exposure control, adjustment of the mA and/or kV according to patient size, and/or use of iterative reconstruction technique. FINDINGS: LOWER THORAX: Hiatal hernia reiterated, small. Limited bilateral basilar dependent atelectasis, right greater than left. LIVER: Borderline hepatomegaly. Hepatic steatosis reiterated without focal mass evident once again. No intrahepatic biliary dilatation. GALLBLADDER AND BILE DUCTS: Tiny mural calcification is again seen related to the anterior gallbladder wall which is otherwise unremarkable. PANCREAS: Unremarkable. No gross lesion or ductal dilatation. SPLEEN: Splenomegaly noted to 13.9 cm once again without focal mass. ADRENALS: Unremarkable. No mass. KIDNEYS AND URETERS: No obstructive uropathy bilaterally or perinephric reaction appreciable. A 2.3 cm lucency is appreciate related to the lower pole right kidney measuring 30 Hounsfield units, potentially reflecting proteinaceous or hemorrhagic cyst. There a few tiny lucencies too small to characterize at the right renal cortex. Follow-up CT of the abdomen is recommended with and without contrast for further characterization of 2.3 cm probable complex cyst. Left kidney remains unremarkable. VASCULATURE: Nonaneurysmal abdominal aortic calcific atherosclerotic changes are identified. BOWEL: Small hiatal hernia is identified. The stomach is decompressed limiting evaluation of the wall thickness. Mural thickening is not excluded on acute or subacute basis and clinical correlation is recommended. No obstruction. No gross mural thickening. Moderate fecal loading is again seen at the proximal and middle thirds of the colon with the distal 3rd decompressed once again. Evaluation of the gastrointestinal tract is limited due to the lack of oral contrast administration. APPENDIX: Normal appendix. PERITONEUM: Trace fluid is seen at the inferior right pelvis deep to the right inguinal canal but separate from it of uncertain origin. This is quite separate from the appendix. Small bilateral fat containing inguinal hernias are identified once again. LYMPH NODES: Unremarkable. No enlarged lymph nodes. BLADDER: Moderately distended with diminished mural thickening evident which could also reflect cystitis though improved. REPRODUCTIVE: Mild prostate gland enlargement reiterated. BONES: Gross degenerative disc disease L5-S1 with grade 1 retrolisthesis of L5 posterior to S1. OTHER FINDINGS: None. IMPRESSION: 1. The stomach is decompressed limiting evaluation of the wall with gastritis not completely excluded or other causes of acute subacute mural thickening potentially. Left upper quadrant abdomen is otherwise unremarkable for splenomegaly which is unchanged. Small hiatal hernia evident. 2. Hepatic steatosis and borderline hepatomegaly reiterated. 3. Nonacute sigmoid diverticulosis. Moderate fecal loading is again seen at the proximal and middle thirds of the colon with the distal 3rd decompressed once again. 4. Potential residual cystitis. 5. Enlarged prostate gland reiterated.
[2018-06-08 17:38] VITALS: BP 137/88; PULSE 70; TEMP 98
--- NOTE | 2018-06-08 20:40 | CARD ---
APPROVED REPORT Date of service: 06/08/2018 EKG Measurement Heart [id number] <Conclusion> Normal sinus rhythm Normal ECG
== END 2018-06-08 17:30 | disposition home or self-care (01) ==
LOC: H.ER 13:24
DX: N39.0 Urinary tract infection, site not specified (principal); R10.9 Unspecified abdominal pain; G89.29 Other chronic pain; I10 Essential (primary) hypertension; J44.9 Chronic obstructive pulmonary disease, unspecified; Z82.49 Family history of ischemic heart disease and other diseases of the circulatory system; Z87.891 Personal history of nicotine dependence; N40.0 Benign prostatic hyperplasia without lower urinary tract symptoms
CPT/HCPCS: 74177; 80053; 81003; 85025; 85610; 85730; 93005; 99282; Q9967

== ENCOUNTER 2018-07-25 13:38 | Emergency (ER) | payer MEDICAID ==
[2018-07-25 13:39] VITALS: BMI 26.7
[2018-07-25 13:47] VITALS: TEMP 98.5; O2SAT 97
--- NOTE | 2018-07-25 15:32 | ED PDOC ---
Upper Extremity Pain/Injury Time Seen by Provider: 07/25/18 13:58 Chief Complaint (Nursing): Rib Injury Chief Complaint (Provider): Right Sided Rib Pain History Per: Patient History/Exam Limitations: no limitations Onset/Duration Of Symptoms: Days Additional Complaint(s): 58 year old male with history of chronic back pain on Percocet presents to ED with right sided rib pain for past 2 weeks. Patient states that 2 weeks ago, he began having constant right sided rib pain. He has not taken anything besides pain medication which he takes for back intermittently but nothing specific for rib pain. Patient denies trauma, fall, substernal chest pain, SOB, fever, chills or cough. He states that he works out but has not increased his exercise recently. Patient additionally states he is not here for pain medication. PMD: Caleb Henning Past Medical History Vital Signs: Last Vital Signs Temp 98.5 F 07/25/18 13:46 Pulse 79 07/25/18 13:46 Resp 16 07/25/18 13:46 BP 120/97 H 07/25/18 13:46 Pulse Ox 97 07/25/18 13:46 Primary Care Provider: FAMILY PROVIDER,NO - Medical History PMH: Anxiety, Arthritis, Asthma, Back Problems, Benign Prostatic Hyperplasia, COPD, Diverticulitis, Gastritis, Gall Bladder Disease, Hiatal Hernia, HTN, Hypercholesterolemia, Chronic Pain (Chronic back pain due to spinal stenosis) Denies: Anemia, CHF, HIV, Chronic Kidney Disease - Surgical History Surgical History: Endoscopy (Hx gastric ucer), Hernia Repair - Family History Family History: States: [place], CAD, Diabetes, Hypertension - Social History Current smoker - smoking cessation education provided: No Alcohol: None Drugs: Denies - Immunization History Hx Tetanus Toxoid Vaccination: No Hx Influenza Vaccination: Yes Hx Pneumococcal Vaccination: Yes - Home Medications Home Medications: Ambulatory Orders Medication Instructions Recorded Metoprolol Tartrate 25 mg PO BID 03/15/15 Lisinopril [Zestril] 40 mg PO DAILY 11/09/15 Albuterol HFA [Ventolin HFA 90 2 puff IH Q4 PRN 01/16/17 mcg/actuation (8 g)] Fluticasone/Salmeterol 500/50 2 puff INH Q12 01/16/17 [Advair Diskus 500/50] hydroCHLOROthiazide [Hydrodiuril] 25 mg PO DAILY 05/10/17 Atorvastatin [Lipitor] 20 mg PO DAILY 05/02/18 Gabapentin [Neurontin] 1,200 mg PO Q8 05/02/18 Morphine Sulfate [Morphine Sulfate 30 mg PO Q8 05/02/18 ER] Oxycodone HCl/Acetaminophen 1 tab PO Q6 PRN 05/02/18 [Percocet 10-325 mg Tablet] Ranitidine HCl [Zantac] 150 mg PO BID PRN 05/02/18 Saccharomyces Boulardii [Florastor] 250 mg PO BID #60 capsule 05/14/18 Nitrofurantoin Macrocrystals 100 mg PO BID #10 cap 06/08/18 [Macrobid] Ibuprofen [Motrin Tab] 600 mg PO Q6 PRN 7 Days tab 07/25/18 - Allergies Allergies/Adverse Reactions: Allergies Allergy/AdvReac Type Severity Reaction Status Date / Time No Known Allergies Allergy Verified 07/25/18 13:50 Review of Systems ROS Statement: Except As Marked, All Systems Reviewed And Found Negative Constitutional: Negative for: Fever, Chills, Other (trauma or fall) Cardiovascular: Negative for: Chest Pain (substernal) Respiratory: Negative for: Cough, Shortness of Breath Musculoskeletal: Positive for: Other (right sided rib pain) Physical Exam - Reviewed Nursing Documentation Reviewed: Yes Vital Signs Reviewed: Yes - Physical Exam Appears: Positive for: No Acute Distress Cardiovascular/Chest: Positive for: Regular Rate, Rhythm, Other (No ecchymosis, erythema or swelling on right chest. Pain reproducible with twisting motion.). Negative for: Chest Non Tender (Tenderness on palpation of right anterior lateral chest), Murmur Respiratory: Positive for: Normal Breath Sounds. Negative for: Respiratory Distress Neurological/Psych: Positive for: Awake, Alert, Oriented (x3) - ECG O2 Sat by Pulse Oximetry: 97 (RA) Pulse Ox Interpretation: Normal Medical Decision Making Medical Decision Making: Time: 1500 Initial Impression: Initial Plan: --Right Sided Rib and Chest Xray 1530 Xray reviewed by me and there was no acute fracture or abnormality. Patient is stable for discharge home and was recommended to take Ibuprofen as needed for pain Scribe Attestation: Documented by Micheal Acosta, acting as a scribe for Fabiola Navarro PA-C Provider Scribe Attestation: All medical record entries made by the Scribe were at my direction and personally dictated by me. I have reviewed the chart and agree that the record accurately reflects my personal performance of the history, physical exam, medical decision making, and the department course for this patient. I have also personally directed, reviewed, and agree with the discharge instructions and disposition. Disposition - Clinical Impression Clinical Impression: Costochondritis - Disposition Referrals: Caleb Henning MD [Family Provider] - Disposition Time: 15:30 Condition: STABLE Additional Instructions: Take Ibuprofen for pain as will help with inflammation. Avoid excessive exercise that utilizes your abdominal/chest muscles until you feel better as will aggravate inflammation. Return to ER if you develop trouble breathing or worsening chest pain. Prescriptions: Ibuprofen [Motrin Tab] 600 mg PO Q6 PRN 7 Days tab PRN Reason: Pain, Moderate (4-7) Instructions: Costochondritis (DC) Forms: [employer] (Bar[place]) Print Language: MACEDONIAN
[2018-07-25 15:46] VITALS: BP 116/88; PULSE 85; RESP 18
--- NOTE | 2018-07-25 16:48 | RAD ---
Date of service: 07/25/2018 PROCEDURE: Radiographs of the Chest and Right Ribs. HISTORY: acute Right sided rib pain x 2 wks, no trauma COMPARISON: None available. TECHNIQUE: Frontal radiograph of the chest and multiple oblique radiographs of the right ribs were obtained. 4 views obtained. FINDINGS: RIGHT RIBS: No fracture or focal lesion visualized. LUNGS: Clear. PLEURA: No pneumothorax or pleural fluid. CARDIOVASCULAR: Normal cardiac size. No pulmonary vascular congestion. No aortic atherosclerotic calcification present OTHER FINDINGS: Globular calcification adjacent to the right humeral greater tuberosity consistent with calcific tendinitis. IMPRESSION: Unremarkable radiographs of the chest and right ribs. No right rib fracture. Calcific tendinitis of the right shoulder.
== END 2018-07-25 15:42 | disposition home or self-care (01) ==
LOC: H.ER 13:38
DX: M94.0 Chondrocostal junction syndrome [Tietze] (principal)

== ENCOUNTER 2018-07-31 16:43 | Observation (INO) | payer MEDICAID ==
[2018-07-31 16:53] VITALS: BMI 21.5
[2018-07-31] MEDS ORDERED: Sodium Chloride 0.9% 1,000 ML IV STA (18:00)
--- NOTE | 2018-07-31 18:02 | ED PDOC ---
HPI: Abdomen Time Seen by Provider: 07/31/18 17:45 Chief Complaint (Nursing): Abdominal Pain History Per: Patient Onset/Duration Of Symptoms: Days (3), Intermittent Episodes Current Symptoms Are (Timing): Still Present Severity: Moderate Pain Scale Rating Of: 4 Location Of Pain/Discomfort: Diffuse, LLQ Associated Symptoms: Diarrhea Exacerbating Factors: None Alleviating Factors: None Past Medical History Reviewed: Historical Data, Nursing Documentation, Vital Signs Vital Signs: Last Vital Signs Temp 98.4 F 07/31/18 16:57 Pulse 99 H 07/31/18 16:57 Resp 16 07/31/18 16:57 BP 147/90 07/31/18 16:57 Pulse Ox 97 07/31/18 16:57 Primary Care Provider: Non [facility] Provider, - Medical History PMH: Anxiety, Arthritis, Asthma, Back Problems, Benign Prostatic Hyperplasia, COPD, Diverticulitis, Gastritis, Gall Bladder Disease, Hiatal Hernia, HTN, Hypercholesterolemia, Chronic Pain (Chronic back pain due to spinal stenosis) Denies: Anemia, CHF, HIV, Chronic Kidney Disease - Surgical History Surgical History: Endoscopy (Hx gastric ucer), Hernia Repair - Family History Family History: States: [place], CAD, Diabetes, Hypertension - Immunization History Hx Tetanus Toxoid Vaccination: No Hx Influenza Vaccination: Yes Hx Pneumococcal Vaccination: Yes - Home Medications Home Medications: Ambulatory Orders Medication Instructions Recorded Metoprolol Tartrate 25 mg PO BID 03/15/15 Lisinopril [Zestril] 40 mg PO DAILY 11/09/15 Albuterol HFA [Ventolin HFA 90 2 puff IH Q4 PRN 01/16/17 mcg/actuation (8 g)] Fluticasone/Salmeterol 500/50 2 puff INH Q12 01/16/17 [Advair Diskus 500/50] hydroCHLOROthiazide [Hydrodiuril] 25 mg PO DAILY 05/10/17 Atorvastatin [Lipitor] 20 mg PO DAILY 05/02/18 Gabapentin [Neurontin] 1,200 mg PO Q8 05/02/18 Morphine Sulfate [Morphine Sulfate 30 mg PO Q8 05/02/18 ER] Oxycodone HCl/Acetaminophen 1 tab PO Q6 PRN 05/02/18 [Percocet 10-325 mg Tablet] Ranitidine HCl [Zantac] 150 mg PO BID PRN 05/02/18 Saccharomyces Boulardii [Florastor] 250 mg PO BID #60 capsule 05/14/18 Nitrofurantoin Macrocrystals 100 mg PO BID #10 cap 06/08/18 [Macrobid] Ibuprofen [Motrin Tab] 600 mg PO Q6 PRN 7 Days tab 07/25/18 - Allergies Allergies/Adverse Reactions: Allergies Allergy/AdvReac Type Severity Reaction Status Date / Time No Known Allergies Allergy Verified 07/31/18 16:58 Review of Systems ROS Statement: Except As Marked, All Systems Reviewed And Found Negative Physical Exam - Reviewed Nursing Documentation Reviewed: Yes Vital Signs Reviewed: Yes - ECG O2 Sat by Pulse Oximetry: 97 Disposition - Disposition Forms: [employer] (Divehi)
[2018-07-31 18:34] LABS: BASO % 0.6 % (0.0-2.0); EOS # 0.1 K/uL (0.0-0.7); EOS % 2.1 % (0.0-4.0); HEMOGLOBIN 13.4 g/dL (12.0-18.0); LYMPH # 1.2 K/uL (1.0-4.3); LYMPH % 21.8 % (20.0-40.0); MEAN CORPUSCULAR HEMOGLOBIN 27.6 pg (27.0-31.0); MEAN CORPUSCULAR HGB CONC 33.2 g/dL (33.0-37.0); MEAN PLATELET VOLUME 12.1 fl (7.2-11.7); MONO # 0.4 K/uL (0.0-0.8); MONO % 8.2 % (0.0-10.0); NEUT # 3.6 K/uL (1.8-7.0); NEUT % 67.3 % (50.0-75.0); NRBC % 0.1 % (0.0-0.0); RBC 4.86 Mil/uL (4.40-5.90); WHITE BLOOD COUNT 5.3 K/uL (4.8-10.8)
[2018-07-31 18:43] LABS: ALB/GLOB RATIO 1.8 (1.0-2.1); ALBUMIN 4.1 g/dL (3.5-5.0); ALT/SGPT 24 U/L (21-72); AST/SGOT 24 U/L (17-59); BLOOD UREA NITROGEN 17 mg/dl (9-20); CALCIUM 8.8 mg/dL (8.4-10.2); GFR NON-AFRICAN AMERICAN > 60; LIPASE 115 U/L (23-300)
[2018-07-31] MEDS ORDERED: Sodium Chloride 0.9% 50 ML IV ONE (18:48)
[2018-07-31] MEDS ORDERED: Iohexol 300 100 ML IJ ONE (18:48)
--- NOTE | 2018-07-31 19:19 | ED PDOC ---
- Laboratory Results Result Diagrams: 07/31/18 18:25 07/31/18 18:25 Lab Results: Total Bilirubin 1.1 mg/dl (0.2-1.3) 07/31/18 18:25 AST 24 U/L (17-59) 07/31/18 18:25 ALT 24 U/L (21-72) 07/31/18 18:25 Alkaline Phosphatase 63 U/L (38-126) 07/31/18 18:25 Total Protein 6.4 G/DL (6.3-8.2) 07/31/18 18:25 Albumin 4.1 g/dL (3.5-5.0) 07/31/18 18:25 Globulin 2.3 gm/dL (2.2-3.9) 07/31/18 18:25 Albumin/Globulin Ratio 1.8 (1.0-2.1) 07/31/18 18:25 Lipase 115 U/L (23-300) 07/31/18 18:25 - ECG O2 Sat by Pulse Oximetry: 97 Medical Decision Making Medical Decision Makin Patient signed out to this provider by Dr. Brunson pending CT Abdomen & Pelvis and re-evaluation. 1944 CT Abd FINDINGS: LUNG BASES: The lung bases appear clear. No pleural effusions are seen. LIVER: Unremarkable. GALLBLADDER AND BILE DUCTS: The gallbladder appears within normal limits. No radioopaque gallstones are seen. No biliary ductal dilatation is evident. PANCREAS: Unremarkable. SPLEEN: Unremarkable. ADRENAL GLANDS: Unremarkable. KIDNEYS, URETERS, AND BLADDER: A small cyst incidentally noted right kidney. There is no hydronephrosis or hydroureter. No urinary calculi are seen. Bladder wall appears thickened. STOMACH AND BOWEL: Unremarkable appearance of the stomach and bowel. No evidence of bowel obstruction. There is extensive diverticular changes involving the sigmoid and distal descending colon with mild wall thickening suggesting diverticulitis. There is no diverticular abscess or mass. APPENDIX: No evidence of acute appendicitis on CT examination. PERITONEUM: No free fluid. No free air. LYMPH NODES: No lymphadenopathy is evident. REPRODUCTIVE: Prostate gland is moderately enlarged. VASCULATURE: No evidence of abdominal aortic aneurysm. BONES: No aggressive appearing osseous lesion. No acute osseous pathology evident. IMPRESSION: Extensive diverticular changes sigmoid and distal descending colon with thickening of the wall of the colon raising suspicion of diverticulitis.Bladder wall thickening. Enlarged prostate gland. 2030 Patient will be admitted as discussed with Dr. Sotelo, hospitalist. He is diagnosed with C-diverticulitis. Scribe Attestation: Documented by Micheal Acosta acting as a scribe for Andrew Castillo MD. Provider Scribe Attestation: All medical record entries made by the Scribe were at my direction and personally dictated by me. I have reviewed the chart and agree that the record accurately reflects my personal performance of the history, physical exam, medical decision making, and the department course for this patient. I have also personally directed, reviewed, and agree with the discharge instructions and disposition. Disposition - Clinical Impression Clinical Impression: C. difficile diarrhea, Diverticulitis - POA Present On Arrival: None - Disposition Disposition: Admitted as In-Patient Disposition Time: 20:30 Condition: FAIR
[2018-07-31] MEDS ORDERED: metroNIDAZOLE 500mg/100ml NS 100 ML IVPB STA (19:30)
[2018-07-31] MEDS ORDERED: metroNIDAZOLE 500mg/100ml NS 100 ML IVPB ONE (20:00)
[2018-07-31] MEDS ORDERED: Sodium Chloride 0.9% 1,000 ML IV SCH (21:00)
[2018-07-31] MEDS ORDERED: Oxycodone/Acetaminophen 5/325 mg Tab PO PRN (21:01)
[2018-07-31] MEDS ORDERED: Albuterol HFA 90 mcg/actuation (8 g) IH PRN (21:04)
--- NOTE | 2018-07-31 21:06 | CP.PCM.HP ---
<Hannah Uriostegui - Last Filed: 07/31/18 21:24> History of Present Illness - History of Present Illness History of Present Illness: CC: abdominal pain HPI: 58 YO Male with PMHx of cervical and lumbar spondylosis, asthma, HTN, HLD presents to [facility] ED for abdominal pain and dirrhea. Patient states that he was recently diagnosed with a sinus infection for which he took 5 days of PO Augmentin 875mg. He finished the dose of Saturday, and Saturday morning he started having cramping abdominal pain with diarrhea. He had had 6-7 episodes of diarrhea for the past two days, and today his latest BM had small trace of blood in it. His pain is located in the LLQ, sharp, and at other times he also has pa in all over that's cramping in nature. Denies fevers, chills, vomiting or nausea. Of note, patient states that he had c. diff in the past in April 2018 (after he took abx for something) and was seen by GI and at the time due to insurance was given PO Metro by Dr. Franklin. PMD: [facility] PMH: HTN, HLD, asthma, chronic back/neck pain (sees pain management) Past Surg hx: left sided abdominal hernia repair (9 y ago), hemorrhoidectomy (10 y ago) Social hx: denies tobacco use, denies current alcohol use (used to be a heavy drinker until 5 yrs ago), denies recent drug use (cocaine use 5 yrs ago) Fam hx: DM2, HTN, brother passed due to liver ca Allergies: NKDA Meds: meds reviewed with patient and data verified in [facility] Present on Admission - Present on Admission Any Indicators Present on Admission: No Review of Systems - Constitutional Constitutional: absent: Chills, Fever - Cardiovascular Cardiovascular: absent: Chest Pain, Dyspnea, Palpitations - Respiratory Respiratory: absent: Cough, Dyspnea - Gastrointestinal Gastrointestinal: Abdominal Pain, Cramping, Diarrhea. absent: Nausea, Vomiting - Genitourinary Genitourinary: absent: Dysuria - Musculoskeletal Musculoskeletal: Back Pain (chronic back pain ) - Neurological Neurological: absent: Dizziness, Headaches Past Patient History - Infectious Disease Hx of Infectious Diseases: None - Tetanus Immunizations Tetanus Immunization: Unknown - Past Medical History & Family History Past Medical History?: Yes - Past Social History Smoking Status: Never Smoked Alcohol: None Drugs: Denies - CARDIAC Hx Congestive Heart Failure: No Hx Hypercholesterolemia: Yes Hx Hypertension: Yes - PULMONARY Hx Asthma: Yes Hx Chronic Obstructive Pulmonary Disease (COPD): Yes - NEUROLOGICAL Hx Neurological Disorder: No Other/Comment: NUMBERNESS .TINGLING LEFT ARM - HEENT Hx HEENT Problems: No Other/Comment: 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 - RENAL Hx Chronic Kidney Disease: No - ENDOCRINE/METABOLIC Hx Endocrine Disorders: No Other/Comment: HYPOGLYCEMIA - HEMATOLOGICAL/ONCOLOGICAL Hx Anemia: No Hx Human Immunodeficiency Virus (HIV): No - INTEGUMENTARY Hx Dermatological Problems: No - MUSCULOSKELETAL/RHEUMATOLOGICAL Hx Arthritis: Yes - GASTROINTESTINAL Hx Diverticulitis: Yes Hx Gall Bladder Disease: Yes Hx Gastritis: Yes - GENITOURINARY/GYNECOLOGICAL Hx Genitourinary Disorders: No Hx Prostate Problems: Yes - PSYCHIATRIC Hx Anxiety: Yes - ANESTHESIA Hx Anesthesia: Yes Hx Anesthesia Reactions: No Hx Malignant Hyperthermia: No Meds Allergies/Adverse Reactions: Allergies Allergy/AdvReac Type Severity Reaction Status Date / Time No Known Allergies Allergy Verified 07/31/18 16:58 Physical Exam - Constitutional Appears: No Acute Distress, Other (fit, looks younger then stated age ) - Head Exam Head Exam: NORMAL INSPECTION - Eye Exam Eye Exam: EOMI, Normal appearance - ENT Exam ENT Exam: Mucous Membranes Moist - Respiratory Exam Respiratory Exam: Clear to Auscultation Bilateral, NORMAL BREATHING PATTERN. absent: Wheezes - Cardiovascular Exam Cardiovascular Exam: REGULAR RHYTHM, +S1, +S2 - GI/Abdominal Exam GI & Abdominal Exam: Normal Bowel Sounds, Soft, Tenderness (in the LLQ). absent: Distended, Guarding, Rebound - Extremities Exam Extremities exam: Positive for: normal inspection. Negative for: calf tenderness, pedal edema - Back Exam Back exam: NORMAL INSPECTION. absent: CVA tenderness (L), CVA tenderness (R) - Neurological Exam Neurological exam: Alert - Psychiatric Exam Psychiatric exam: Normal Mood - Skin Skin Exam: Dry, Intact, Normal Color, Warm Results - Vital Signs Recent Vital Signs: Last Vital Signs Temp 98.7 F 07/31/18 20:47 Pulse 81 07/31/18 20:47 Resp 17 07/31/18 20:47 BP 137/88 07/31/18 20:47 Pulse Ox 98 07/31/18 20:47 - Labs Result Diagrams: 07/31/18 18:25 07/31/18 18:25 Labs: Laboratory Results - last 24 hr 07/31/18 07/31/18 07/31/18 18:25 18:25 18:25 WBC 5.3 RBC 4.86 Hgb 13.4 Hct 40.3 MCV 83.0 MCH 27.6 MCHC 33.2 RDW 13.0 Plt Count 90 L MPV 12.1 H Neut % (Auto) 67.3 Lymph % (Auto) 21.8 [place] % (Auto) 8.2 Eos % (Auto) 2.1 Baso % (Auto) 0.6 Neut # (Auto) 3.6 Lymph # (Auto) 1.2 [place] # (Auto) 0.4 Eos # (Auto) 0.1 Baso # (Auto) 0.0 Sodium 135 Potassium 3.8 Chloride 99 Carbon Dioxide 27 Anion Gap 13 BUN 17 Creatinine 1.1 Est GFR ( Amer) > 60 Est GFR (Non-Af Amer) > 60 Random Glucose 103 Calcium 8.8 Total Bilirubin 1.1 AST 24 ALT 24 Alkaline Phosphatase 63 Total Protein 6.4 Albumin 4.1 Globulin 2.3 Albumin/Globulin Ratio 1.8 Lipase 115 C. difficile Ag & Toxin Positive toxin Assessment & Plan - Assessment and Plan (Free Text) Assessment: Assessment/Plan: 58 YO Male with PMHx of cervical and lumbar spondylosis, asthma, HTN, HLD is admitted for acute diverticulitis and c diff. Previous admission, [facility], blood work and imaging reviewed Acute Diverticulitis -CT sig for Extensive diverticular changes sigmoid and distal descending colon with thickening of the wall of the colon raising suspicion of diverticulitis. -VS stable wild mild tachycardia, afebrile, no leukocytosis noted -c/w IV abx Metro and Levo -IV fluids -liquid diet for now will advance as tolerated -Pain management -ID consulted for diverticulitis and c diff; follow up recs C diff -stool + with c diff -recent abx use with abd pain and diarrhea -will tx with PO vanc -stool culture pending -contact isolation Thrombocytopenia -likely 2/2 chronic use of pain medications and bone marrow depression -will follow up HTN/HLD -choric, controlled -c/w home meds Asthma -mild persistent, controlled -c/w home medications Chronic back pain -follow up pain management as outpatient. Dr. Seay -c/w pain medications -asymptomatic in the admission DVT Prophylaxis -SCD for now given thrombocytopenia -if remains stable consider lovenox SC <Keenan Sotelo - Last Filed: 07/31/18 22:19> Results - Vital Signs Recent Vital Signs: Last Vital Signs Temp 98.7 F 07/31/18 20:47 Pulse 81 07/31/18 20:47 Resp 17 07/31/18 20:47 BP 137/88 07/31/18 20:47 Pulse Ox 98 07/31/18 20:47 - Labs Result Diagrams: 07/31/18 18:25 07/31/18 18:25 Labs: Laboratory Results - last 24 hr 07/31/18 07/31/18 07/31/18 18:25 18:25 18:25 WBC 5.3 RBC 4.86 Hgb 13.4 Hct 40.3 MCV 83.0 MCH 27.6 MCHC 33.2 RDW 13.0 Plt Count 90 L MPV 12.1 H Neut % (Auto) 67.3 Lymph % (Auto) 21.8 [place] % (Auto) 8.2 Eos % (Auto) 2.1 Baso % (Auto) 0.6 Neut # (Auto) 3.6 Lymph # (Auto) 1.2 [place] # (Auto) 0.4 Eos # (Auto) 0.1 Baso # (Auto) 0.0 Sodium 135 Potassium 3.8 Chloride 99 Carbon Dioxide 27 Anion Gap 13 BUN 17 Creatinine 1.1 Est GFR ( Amer) > 60 Est GFR (Non-Af Amer) > 60 Random Glucose 103 Calcium 8.8 Total Bilirubin 1.1 AST 24 ALT 24 Alkaline Phosphatase 63 Total Protein 6.4 Albumin 4.1 Globulin 2.3 Albumin/Globulin Ratio 1.8 Lipase 115 C. difficile Ag & Toxin Positive toxin Assessment & Plan - Assessment and Plan (Free Text) Plan: History as documented by resident was reviewed with patient and resident. I performed the lopez elements of exam and agree with the above findings. Diagnostics were reviewed and medical decision making and plan of care performed by me. 58 yo male with hx of HTN, HLD and asthma p/w abdominal pain and diarrhea with some red blood. Hx of C-diff in and recent Abx use for sinusitis (Augmentin). On exam abdomen is diffusely tender most prominently in LLQ with some guarding but no rigidity or rebound. CT concerning for acute colitis and stool C-diff positive. Agree with IV Levaquin and Flagyl and p.o. Vanco. ID consult.
[2018-07-31] MEDS: Vancomycin 500 mg (Oral/Rectal USE) PO SCH (22:50)
[2018-08-01] MEDS ORDERED: Morphine 30 mg SR Tab PO SCH ×2 (01:00→09:00)
[2018-08-01] MEDS ORDERED: metroNIDAZOLE 500mg/100ml NS 100 ML IVPB ONE ×2 (01:41→09:48)
[2018-08-01] MEDS: metroNIDAZOLE 500mg/100ml NS 100 ML IVPB SCH ×2 (01:44→09:47)
[2018-08-01] MEDS ORDERED: Morphine 30 mg SR Tab PO PRN (03:14)
[2018-08-01] MEDS: Vancomycin 500 mg (Oral/Rectal USE) PO SCH ×2 (05:00→09:43)
[2018-08-01 07:18] LABS: BASO % 0.6 % (0.0-2.0); EOS # 0.1 K/uL (0.0-0.7); EOS % 2.5 % (0.0-4.0); HEMOGLOBIN 13.5 g/dL (12.0-18.0); LYMPH % 24.1 % (20.0-40.0); MEAN CELL VOLUME 83.2 fl (80.0-94.0); MEAN CORPUSCULAR HEMOGLOBIN 27.3 pg (27.0-31.0); MEAN CORPUSCULAR HGB CONC 32.8 g/dL (33.0-37.0); MEAN PLATELET VOLUME 11.4 fl (7.2-11.7); MONO # 0.4 K/uL (0.0-0.8); MONO % 9.7 % (0.0-10.0); NEUT # 2.6 K/uL (1.8-7.0); NEUT % 63.1 % (50.0-75.0); RBC 4.93 Mil/uL (4.40-5.90); WHITE BLOOD COUNT 4.2 K/uL (4.8-10.8)
[2018-08-01] MEDS ORDERED: levoFLOXacin 750 mg in D5W 750 MG/150 ML BAG IVPB SCH (09:00)
[2018-08-01] MEDS ORDERED: levoFLOXacin 500 mg in D5W 500 MG/100 ML BAG IVPB SCH (09:00)
[2018-08-01] MEDS ORDERED: FLUTICASONE PROPION/SALMETEROL 232-14 INHALER INH SCH ×2 (09:00→13:15)
[2018-08-01] MEDS ORDERED: Enoxaparin 40 mg Syringe SC SCH (09:00)
--- NOTE | 2018-08-01 10:00 | CP.PCM.DIS ---
Provider - Provider Date of Admission: 07/31/18 19:59 Attending physician: Keenan Sotelo MD Consults: 08/01/18 07:00 Infectious Disease Consult Routine Comment: Consulting Provider: Kunal Hamm Consulting Physician: Kunal Hamm Reason for Consult: diverticulitis with c diff Time Spent in preparation of Discharge (in minutes): 30 Diagnosis - Discharge Diagnosis (1) C. difficile diarrhea Status: Acute Comment: -stool + with c diff- recent abx use with abd pain and diarrhea. - Vancomycin. -stool culture pending. - Was given flagyl and levofloxacin for possible diverticulitis. -CT sig for Extensive diverticular changes sigmoid and distal descending colon with thickening of the wall of the colon raising viramontes spicion of diverticulitis. - To be discharged with Vancomycin PO given recent C. diff. (2) Thrombocytopenia Status: Acute Comment: -likely 2/2 chronic use of pain medications and bone marrow depression (3) Asthma Status: Chronic Comment: -mild persistent, controlled. -c/w home medications (4) Hypertension Status: Chronic Priority: Low Comment: -choric, controlled. -c/w home meds (5) Chronic back pain Status: Acute Comment: -follow up pain management as outpatient. Dr. Seay. -c/w pain m edications. -asymptomatic in the admission Hospital Course - Lab Results Lab Results: Most Recent Lab Values WBC 4.2 K/uL (4.8-10.8) L 08/01/18 06:45 RBC 4.93 Mil/uL (4.40-5.90) 08/01/18 06:45 Hgb 13.5 g/dL (12.0-18.0) 08/01/18 06:45 Hct 41.0 % (35.0-51.0) 08/01/18 06:45 MCV 83.2 fl (80.0-94.0) 08/01/18 06:45 MCH 27.3 pg (27.0-31.0) 08/01/18 06:45 MCHC 32.8 g/dL (33.0-37.0) L 08/01/18 06:45 RDW 13.0 % (11.5-14.5) 08/01/18 06:45 Plt Count 83 K/uL (130-400) L 08/01/18 06:45 MPV 11.4 fl (7.2-11.7) 08/01/18 06:45 Neut % (Auto) 63.1 % (50.0-75.0) 08/01/18 06:45 Lymph % (Auto) 24.1 % (20.0-40.0) 08/01/18 06:45 [place] % (Auto) 9.7 % (0.0-10.0) 08/01/18 06:45 Eos % (Auto) 2.5 % (0.0-4.0) 08/01/18 06:45 Baso % (Auto) 0.6 % (0.0-2.0) 08/01/18 06:45 Neut # (Auto) 2.6 K/uL (1.8-7.0) 08/01/18 06:45 Lymph # (Auto) 1.0 K/uL (1.0-4.3) 08/01/18 06:45 [place] # (Auto) 0.4 K/uL (0.0-0.8) 08/01/18 06:45 Eos # (Auto) 0.1 K/uL (0.0-0.7) 08/01/18 06:45 Baso # (Auto) 0.0 K/uL (0.0-0.2) 08/01/18 06:45 Sodium 135 mmol/l (132-148) 07/31/18 18:25 Potassium 3.8 MMOL/L (3.6-5.0) 07/31/18 18:25 Chloride 99 mmol/L (98-107) 07/31/18 18:25 Carbon Dioxide 27 mmol/L (22-30) 07/31/18 18:25 Anion Gap 13 (10-20) 07/31/18 18:25 BUN 17 mg/dl (9-20) 07/31/18 18:25 Creatinine 1.1 mg/dl (0.8-1.5) 07/31/18 18:25 Est GFR ( Amer) > 60 07/31/18 18:25 Est GFR (Non-Af Amer) > 60 07/31/18 18:25 Random Glucose 103 mg/dL (75-110) 07/31/18 18:25 Calcium 8.8 mg/dL (8.4-10.2) 07/31/18 18:25 Total Bilirubin 1.1 mg/dl (0.2-1.3) 07/31/18 18:25 AST 24 U/L (17-59) 07/31/18 18:25 ALT 24 U/L (21-72) 07/31/18 18:25 Alkaline Phosphatase 63 U/L (38-126) 07/31/18 18:25 Total Protein 6.4 G/DL (6.3-8.2) 07/31/18 18:25 Albumin 4.1 g/dL (3.5-5.0) 07/31/18 18:25 Globulin 2.3 gm/dL (2.2-3.9) 07/31/18 18:25 Albumin/Globulin Ratio 1.8 (1.0-2.1) 07/31/18 18:25 Lipase 115 U/L (23-300) 07/31/18 18:25 C. difficile Ag & Toxin Positive toxin (NEGATIVE) 07/31/18 18:25 - Hospital Course Hospital Course: 58 yo Male with history of cervical and lumbar spondylosis, asthma, HTN, HLD was admitted for acute diverticulitis and c diff. Patient had previous history of C. Diff infection in the past. CT significant for Extensive diverticular changes sigmoid and distal descending colon with thickening of the wall of the colon raising suspicion of diverticulitis. Patient was given Flagyl and Levofloxaxin for possible diverticulitis. Vancomycin was started for C. Difficile infection. Patient was maintained on contact isolation. No leukocytosis and afebrile. Vital signs stable during hospital stay. Stool culture is pending but C. Diff toxin is positive. Will follow up with PMD outpatient. Discharge Exam - Head Exam Head Exam: NORMAL INSPECTION - Eye Exam Eye Exam: Normal appearance - ENT Exam ENT Exam: Mucous Membranes Moist - Respiratory Exam Respiratory Exam: Clear to PA & Lateral, NORMAL BREATHING PATTERN, UNREMARKABLE. absent: Accessory Muscle Use, Chest Wall Tenderness, Decreased Breath Sounds, Prolonged Expiratory Phase, Rales, Rhonchi, Wheezes, Respiratory Distress, Stridor - Cardiovascular Exam Cardiovascular Exam: REGULAR RHYTHM, +S1, +S2 - GI/Abdominal Exam GI & Abdominal Exam: Normal Bowel Sounds, Soft, Tenderness (mild LLQ tenderness on palpation). absent: Distended, Firm, Rebound, Rigid - Extremities Exam Extremities exam: normal capillary refill, normal inspection, pedal pulses present - Neurological Exam Neurological exam: Alert, Oriented x3 - Psychiatric Exam Psychiatric exam: Normal Affect, Normal Mood - Skin Skin Exam: Dry, Intact, Normal Color, Warm Discharge Plan - Discharge Medications Prescriptions: Vancomycin Hydrochloride Oral [Vancocin 125mg Capsule] 125 mg PO ASDIR #75 capsule - Follow Up Plan Condition: GOOD Disposition: HOME/ ROUTINE Patient education suggested?: Yes Instructions: Clostridium Difficile Infection (DC), Antibiotic-Associated Diarrhea (DC) Referrals: [facility] [place] [Outside]
[2018-08-01] MEDS ORDERED: levoFLOXacin 500 mg in D5W 500 MG/100 ML BAG IVPB ONE (10:31)
--- NOTE | 2018-08-01 10:36 | CT ---
Date of service: 07/31/2018 PROCEDURE: CT Abdomen and Pelvis with contrast HISTORY: abdominal pain LLQ pain COMPARISON: Abdomen pelvis CT with contrast 06/08/2017.. TECHNIQUE: Following the intravenous administration of iodinated contrast material, a CT examination of the abdomen and pelvis was performed from the domes of the diaphragms to the symphysis pubis with reformatted datasets provided in axial, sagittal and coronal planes. Oral contrast was not administered as per referring physician request. Contrast dose: Omnipaque 300, 95 cc Radiation dose: Total exam DLP = 552.37 mGy-cm. This CT exam was performed using one or more of the following dose reduction techniques: Automated exposure control, adjustment of the mA and/or kV according to patient size, and/or use of iterative reconstruction technique. FINDINGS: LOWER THORAX: Small hiatal hernia again identified. No acute infiltrates or pleural effusions bilaterally at the bases. LIVER: Borderline hepatomegaly. No gross lesion or ductal dilatation. GALLBLADDER AND BILE DUCTS: Punctate mural calcification again noted related to the anterior gallbladder wall. Gallbladder is contracted in the interval. PANCREAS: Unremarkable. No gross lesion or ductal dilatation. SPLEEN: Unremarkable. ADRENALS: Unremarkable. No mass. KIDNEYS AND URETERS: Unremarkable. No hydronephrosis. No solid mass. VASCULATURE: Unremarkable. No aortic aneurysm. Nonaneurysmal abdominal aortic calcific atherosclerotic changes are identified. BOWEL: Sigmoid diverticulosis reiterated with interval increase in mural thickening suspicious for mild active diverticulitis with trace pericolic reaction associated. No abscess or free intrarenal gas suggest bowel perforation at this time. Unenhanced bowel is otherwise unremarkable appearing with moderate fecal loading identified at the right hemicolon. APPENDIX: Normal appendix. PERITONEUM: Unremarkable. No free fluid. No free air. LYMPH NODES: Numerous shotty central mesenteric lymph nodes identified with a few medial pericecal lymph nodes as well. Consider possible mesenteric adenitis. A mildly enlarged gastrohepatic lymph node is appreciated measure 1.9 x 1.2 cm. BLADDER: Cystitis remains difficult to exclude given mural thickening at the gallbladder which is not adequately distended. Borderline pericystic reaction questioned. REPRODUCTIVE: Mildly enlarged prostate gland reiterated. BONES: Grade 1 spondylolisthesis L5-S1 reiterated. OTHER FINDINGS: None. IMPRESSION: 1. Findings suspicious for mild interval sigmoid diverticulitis with underlying lesion not excluded. Follow-up GI consultation advised following therapy. 2. Mesenteric adenitis suggested. 3. Borderline hepatomegaly noted once again. 4. Although the urinary bladder is not completely distended, mural thickening and local pericystic reaction raise question of cystitis once again. 5. Enlarged prostate gland again evident. Concordant preliminary report from [facility], 07/31/2018, 7:45 p.m..
[2018-08-01 11:28] VITALS: RESP 18
[2018-08-01 12:54] VITALS: BP 133/91; PULSE 50; TEMP 98.7; O2SAT 98
[2018-08-01] MEDS ORDERED: Oxycodone/Acetaminophen 5/325 mg Tab ONE (12:59)
[2018-08-01] MEDS ORDERED: VANCOMYCIN HCL 50 MG/ML SOLN.RECON PO SCH (16:00)
== END 2018-08-01 16:38 | disposition home or self-care (01) ==
LOC: H.ER 16:43 → H.ERHOLD 19:59 → INTOOBSV 19:59 → H.ERHOLD 08-01 14:03
PROVIDERS: ADMIT Internal Medicine; ATTEND Internal Medicine
DX: A04.72 Enterocolitis due to Clostridium difficile, not specified as recurrent (principal); D69.6 Thrombocytopenia, unspecified; E11.9 Type 2 diabetes mellitus without complications; E78.00 Pure hypercholesterolemia, unspecified; E78.5 Hyperlipidemia, unspecified; G89.29 Other chronic pain; I10 Essential (primary) hypertension; I25.10 Atherosclerotic heart disease of native coronary artery without angina pectoris; J44.9 Chronic obstructive pulmonary disease, unspecified; N40.0 Benign prostatic hyperplasia without lower urinary tract symptoms; Z78.9 Other specified health status; Z80.0 Family history of malignant neoplasm of digestive organs; F41.9 Anxiety disorder, unspecified; K29.70 Gastritis, unspecified, without bleeding; K44.9 Diaphragmatic hernia without obstruction or gangrene; K82.9 Disease of gallbladder, unspecified; M19.90 Unspecified osteoarthritis, unspecified site; M47.816 Spondylosis without myelopathy or radiculopathy, lumbar region; M48.00 Spinal stenosis, site unspecified; Z79.899 Other long term (current) drug therapy; M54.9 Dorsalgia, unspecified; M54.2 Cervicalgia
CPT/HCPCS: 74177; 80053; 83690; 85025; 87040; 87230; 96374; 96375; 96376; 99284; G0378; J1885; J3370; J7030; Q9967